=== PATIENT | female | born 1980 ===

== ENCOUNTER 2020-10-06 13:02 | Outpatient (REF) | payer OTHER, SELFPAY | END 2020-10-06 13:03 | disposition home or self-care (01) | LOC: HO.LAB 13:02 | PROVIDERS: PCP Internal Medicine; Visit Provider Internal Medicine | DX: Z20.828 Contact with and (suspected) exposure to other viral communicable diseases (principal) | CPT/HCPCS: C9803; U0003 ==

== ENCOUNTER 2021-06-30 07:57 | Outpatient (REF) | payer OTHER, SELFPAY ==
[2021-06-30 08:23] LABS: MANUAL DIFF FLAG NO
[2021-06-30 08:31] LABS: Basophils Absolute Auto 0.1 X10*3/uL (0.0-0.2); Eosinophils Absolute Auto 0.1 X10*3/uL (0.0-0.4); Eosinophils Percent Auto 2.9 % (0-4); Hematocrit 41.3 % (37-47); Hemoglobin 13.5 g/dl (12.0-16.0); Imm Gran Abs Auto 0.01 X10*3/uL (0.00-0.03); Imm Gran Pct Auto 0.2 % (0.0-0.4); Lymphocytes Absolute Auto 1.8 X10*3/uL (1.2-4.9); Lymphocytes Percent Auto 36.3 % (20-40); Mean Corpuscular HGB Conc 32.7 g/dl (31.0-35.0); Mean Corpuscular Hemoglobin 27.6 pg (27.0-33.0); Mean Corpuscular Volume 84.3 fL (80-98); Monocytes Absolute Auto 0.4 X10*3/uL (0.1-1.2); Monocytes Percent Auto 7.9 % (2-11); Neutrophils Absolute Auto 2.5 X10*3/uL (2.0-8.3); Neutrophils Percent Auto 51.7 % (45-73); Platelet Count 199 X10*3/uL (160-400); Red Cell Distribution Width 13.7 % (11.0-16.0); White Blood Count 4.8 X10*3/uL (4.8-10.8)
[2021-06-30 08:54] LABS: Alanine Aminotransferase 68 U/L (0-31); Albumin Level 4.3 g/dL (3.5-5.0); Alkaline Phosphatase 86 U/L (39-117); Anion Gap 18 (12-20); Aspartate Amino Transferase 66 U/L (5-31); Blood Urea Nitrogen 17 mg/dL (9-16); Calcium 10.1 mg/dL (8.4-10.2); Carbon Dioxide 29 mmol/L (22-29); Chloride 92 mmol/L (96-108); Cholesterol 202 mg/dL; Estimated Glomerular Filt Rate 39; HDL Cholesterol 39 mg/dL; LDL Cholesterol Calculated 98 mg/dl; Potassium 3.8 mmol/L (3.3-5.1); Sodium 135 mmol/L (135-145); Total Protein 7.2 g/dL (6.5-8.0); Triglycerides 328 mg/dL
[2021-06-30 09:04] LABS: Glucose Fasting 498 mg/dL (60-99)
[2021-06-30 09:11] LABS: Thyroid Stimulating Hormone 14.47 uIU/mL (0.32-4.0)
[2021-07-02 02:22] LABS: Thyroglobulin Antibodies <1 IU/mL (< or = 1); Thyroid Peroxidase Antibodies <1 IU/mL (<9)
[2021-07-06 13:17] LABS: Vitamin D 25-OH, D2 16 ng/mL; Vitamin D 25-OH, D3 7 ng/mL; Vitamin D 25-OH, Total 23 ng/mL (30-100)
== END 2021-06-30 07:58 | disposition home or self-care (01) ==
LOC: HO.LAB 07:57
PROVIDERS: PCP Internal Medicine; Visit Provider Internal Medicine
DX: J30.9 Allergic rhinitis, unspecified (principal); I10 Essential (primary) hypertension; E78.5 Hyperlipidemia, unspecified; E03.9 Hypothyroidism, unspecified; E55.9 Vitamin D deficiency, unspecified
CPT/HCPCS: 36415; 80053; 80061; 82306; 84443; 85025; 86376; 86800

== ENCOUNTER 2021-07-15 16:37 | Outpatient (REF) | payer OTHER, SELFPAY ==
[2021-07-15 18:12] LABS: Estimated Average Glucose 346 mg/dL; Hemoglobin A1c % 13.7 %
== END 2021-07-15 16:38 | disposition home or self-care (01) ==
LOC: HO.LAB 16:37
PROVIDERS: PCP Internal Medicine; Visit Provider Internal Medicine
DX: E11.40 Type 2 diabetes mellitus with diabetic neuropathy, unspecified (principal)
CPT/HCPCS: 36415; 83036

== ENCOUNTER 2022-03-15 07:16 | Emergency (ER) | payer OTHER, SELFPAY ==
--- NOTE | 2022-03-15 07:36 | ED.GENADULT ---
HPI - General Adult General Stated complaint: pain and burning in thigh Time Seen by Provider: 03/15/22 07:26 Source: patient Mode of arrival: ambulatory Limitations: no limitations History of Present Illness HPI narrative: Patient comes emergency room complaining of 2-3 days of burning sensation and numbness and tingling in the anterior lateral portion of the right thigh. Patient denies any injury, no rash, no fever chills, no hip pain no knee pain, no trauma. Patient states that over the weekend she has been wearing loose clothes to make her feel better. Patient states that wearing jeans aggravates the discomfort Related Data Home Medications Medication Instructions Recorded Confirmed insulin degludec 100 unit/mL (3 30 unit SUBCUT ml 11/05/21 11/05/21 mL) subcutaneous pen (Tresiba FlexTouch U-100 insulin) pen needle, diabetic 31 gauge x #50 ea 11/05/21 11/05/2101/27 (BD Ultra-Fine Mini Pen Needle) Previous Rx's Medication Instructions Recorded blood sugar diagnostic (FreeStyle #50 ea 06/30/21 Test) blood-glucose meter (FreeStyle #1 ea 06/30/21 Lite Meter) lancets 28 gauge (FreeStyle #100 ea 06/30/21 Lancets) omeprazole 20 mg capsule,delayed 20 mg PO DAILY 90 Days #90 cap 08/26/21 release escitalopram oxalate 10 mg tablet 10 mg PO DAILY #90 tab 10/09/21 metformin 500 mg tablet 500 mg PO BID 90 Days #180 tab 11/05/21 atorvastatin 20 mg tablet 20 mg PO DAILY #30 tab 11/08/21 fenofibrate 54 mg tablet 54 mg PO DAILY #30 tab 11/08/21 levothyroxine 200 mcg tablet 200 mcg PO QAM #30 tab 11/08/21 hydrochlorothiazide 25 mg tablet 25 mg PO QAM #30 tab 03/06/22 acetaminophen 500 mg capsule 500 mg PO Q6H PRN #20 cap 03/15/22 cyclobenzaprine 5 mg tablet 5 mg PO TID PRN #10 tab 03/15/22 Allergies Allergy/AdvReac Type Severity Reaction Status Date / Time No Known Allergies [NKA] Allergy Verified 11/05/21 16:10 Review of Systems Review of Systems: Constitutional : No Weight loss, No Fever, No Chills, No Night Sweats, No Fatigue, No Malaise ENT/Mouth : No Hearing loss, No Ear Pain, No Nasal Congestion, No Sinus Pain, No Hoarseness, No sore throat, No Rhinorrhea, No Swallowing Difficulty Eyes: No Eye Pain, No Swelling, No Redness, No Foreign Body, No Discharge, No Vision Changes Cardiovascular : No Chest Pain, No SOB, No Dyspnea on Exertion, No Orthopnea, No Edema, No Palpitations Respiratory : No Cough, No Sputum, No Wheezing, No Smoke Exposure, No Dyspnea Gastrointestinal : No Nausea, No Vomiting, No Diarrhea, No Constipation, No abdominal Pain, No Hematochezia, No Melena Genitourinary : no irregular bleeding, No Dysuria, No Urinary Frequency, No Hematuria, No Urinary Incontinence, No Urgency, No Flank Pain, No Urinary Flow Changes, No Hesitancy Musculoskeletal : No joint pain, complaining of burning sensation, tingling in the lower side of the thigh Skin : No Skin Lesions, No rash Neuro : No Weakness, No Numbness, No Paresthesias, No Loss of Consciousness, No Dizziness, No Headache Psych : No Anxiety/Panic, No Depression, No SI/HI/AH/VH, No Social Issues, Heme/Lymph: No Bruising, No Bleeding,No Lymphadenopathy Endocrine : No Polyuria, No Polydipsia, No Temperature Intolerance PMFSH Past Medical History Medical History LAXMI (acute kidney injury) Allergic rhinitis Blurry vision Diabetes mellitus Essential hypertension NAVNEET (generalized anxiety disorder) GERD (gastroesophageal reflux disease) Hypothyroid Mixed hyperlipidemia Moderate recurrent major depression Surgical History History of appendectomy History of cholecystectomy History of eye surgery History of hysterectomy History of removal of both ovaries History of surgery History of tonsillectomy History of tubal ligation Family History Family History Father Diabetes Hypertension Glaucoma Stroke Anxiety Mother Diabetes Hypertension Breast cancer History of mastectomy Depression Family/Other FH: mental illness Social History Social History Housing: House Alcohol intake: never Patient Tobacco Use Status: Never used Tobacco e-Cigarette/Vaping Use: Never Used Second Hand Smoke Exposure: No Advance Directives: No Advance Directives Information Provided: No service: No Current occupational status: employed Current occupational exposures/hazards: No Physical Exam ED Const Other: Appearance: Alert. Oriented X3. No acute distress. Eyes: Pupils equal, round and reactive to light. ENT: Pharynx normal. Neck: Normal inspection. Neck supple. No lymph nodes noted. No crepitus CVS: Normal heart rate and rhythm. Pulses normal. Normal S1 and S2 Respiratory: No respiratory distress. Breath sounds normal. No Wheezing. No rales Abdomen: Soft and nontender. No rigidity. No distention. Skin: Skin warm and dry. Normal skin color. Normal skin turgor. Extremities: No lower extremity edema. No Lacerations. No Rash, discomfort to mild touch/palpation to the outer upper thigh Neuro: Oriented X 3. No motor deficit. No sensory deficit. Moving all extremities. No slurred speech. CN 2 through 12 grossly intact Psych: calm, cooperative, normal affect Course Course Course Narrative: I discussed with the patient that she likely has meralgia paresthetica. Patient will follow-up with her primary care physician. Discharge Plan Discharge Clinical Impression: Meralgia paresthetica of right side Patient Disposition: Home, Self-Care Instructions: Meralgia Paresthetica (ED) Additional Instructions: Please follow-up with your primary care physician tomorrow. If you have any worsening or new symptoms, please return to the emergency room or call 911 Prescriptions: New acetaminophen 500 mg capsule 500 mg PO Q6H PRN (Reason: pain) Qty: 20 0RF cyclobenzaprine 5 mg tablet 5 mg PO TID PRN (Reason: muscle spasm) Qty: 10 0RF No Action (DME) blood-glucose meter [FreeStyle Lite Meter] Kit See Rx Instructions .Route Qty: 1 0RF Rx Instructions: As directed (DME) FreeStyle Test Strip See Rx Instructions .Route Qty: 50 11RF Rx Instructions: Use 1 test strip once a day (DME) lancets [FreeStyle Lancets] 28 gauge misc See Rx Instructions .Route Qty: 100 11RF Rx Instructions: Use 1 lancet once a day omeprazole 20 mg capsule,delayed release(DR/EC) 20 mg PO DAILY 90 Days Qty: 90 3RF escitalopram oxalate 10 mg tablet 10 mg PO DAILY Qty: 90 1RF atorvastatin 20 mg tablet 20 mg PO DAILY Qty: 30 6RF levothyroxine 200 mcg tablet 200 mcg PO QAM Qty: 30 4RF fenofibrate 54 mg tablet 54 mg PO DAILY Qty: 30 4RF hydrochlorothiazide 25 mg tablet 25 mg PO QAM Qty: 30 3RF (DME) pen needle, diabetic [BD Ultra-Fine Mini Pen Needle] 31 gauge x 3/16 needle See Rx Instructions ea subcut BEDTIME Qty: 50 0RF Rx Instructions: As directed metformin 500 mg tablet 500 mg PO BID 90 Days Qty: 180 0RF Tresiba FlexTouch U-100 100 unit/mL (3 mL) insulin pen 30 unit subcut 0RF Stand Alone Forms: Work/School Release
--- NOTE | 2022-03-15 08:49 | PC.NURSE ---
PT SEEN AND EVALUATED BY PROVIDER IN PIVOT ROOM 2 DISCHARGED BY PROVIDER
== END 2022-03-15 08:30 | disposition home or self-care (01) ==
PROVIDERS: Emergency Provider Emergency Medicine; PCP Internal Medicine
DX: G57.11 Meralgia paresthetica, right lower limb (principal); M79.651 Pain in right thigh; E11.9 Type 2 diabetes mellitus without complications; Z79.899 Other long term (current) drug therapy; Z79.4 Long term (current) use of insulin

== ENCOUNTER 2022-04-15 14:13 | Outpatient (REF) | payer OTHER, SELFPAY ==
[2022-04-15 15:00] LABS: Alanine Aminotransferase 20 U/L (0-31); Albumin Level 3.8 g/dL (3.5-5.0); Alkaline Phosphatase 58 U/L (39-117); Anion Gap 12 (12-20); Aspartate Amino Transferase 18 U/L (5-31); Bilirubin Total 0.3 mg/dL (0.0-1.0); Blood Urea Nitrogen 15 mg/dL (9-16); Calcium 9.4 mg/dL (8.4-10.2); Carbon Dioxide 31 mmol/L (22-29); Chloride 104 mmol/L (96-108); Estimated Glomerular Filt Rate > 60; Glucose Random 88 mg/dL (60-115); Potassium 3.9 mmol/L (3.3-5.1); Sodium 143 mmol/L (135-145); Total Protein 6.6 g/dL (6.5-8.0)
== END 2022-04-15 14:14 | disposition home or self-care (01) ==
LOC: HO.LAB 14:13
PROVIDERS: PCP Internal Medicine; Visit Provider Internal Medicine
DX: U07.1 COVID-19 (principal)
CPT/HCPCS: 36415; 80053

== ENCOUNTER 2022-05-11 08:16 | Outpatient (REF) | payer OTHER, SELFPAY ==
[2022-05-11 11:04] LABS: TSH reflex Free T4 < 0.01 uIU/mL (0.32-4.0)
[2022-05-11 11:39] LABS: Free T4 (Free Thyroxine) 1.71 ng/dL (0.71-1.85)
[2022-05-11 12:07] LABS: Folate 7.7 ng/mL (> or = 4.0); Vitamin B12 261 pg/mL (200-900)
[2022-05-14 13:36] LABS: Transglutaminase Ab IgG <1.0 U/mL; Transglutaminase IgA <1.0 U/mL
[2022-05-17 15:42] LABS: Vitamin D 25-OH, D2 6 ng/mL; Vitamin D 25-OH, D3 26 ng/mL; Vitamin D 25-OH, Total 32 ng/mL (30-100)
== END 2022-05-11 08:17 | disposition home or self-care (01) ==
LOC: HO.LAB 08:16
PROVIDERS: PCP Internal Medicine; Visit Provider Nurse Practitioner Family
DX: E55.9 Vitamin D deficiency, unspecified (principal); R19.7 Diarrhea, unspecified; R14.0 Abdominal distension (gaseous)
CPT/HCPCS: 36415; 82306; 82607; 82656; 82746; 84439; 84443; 86364; 99202

== ENCOUNTER 2022-05-11 11:59 | Outpatient (REF) | payer OTHER, SELFPAY ==
[2022-05-18 18:21] LABS: Pancreatic Elastase-1 >500 mcg/g
== END 2022-05-11 12:00 | disposition home or self-care (01) ==
LOC: HO.LNP 11:59
PROVIDERS: Visit Provider Nurse Practitioner Family
DX: Z13.89 Encounter for screening for other disorder (principal)
CPT/HCPCS: 82656; 99202

== ENCOUNTER 2022-05-14 08:00 | Outpatient (RCR) | payer OTHER, SELFPAY ==
[2022-04-01 08:07] VITALS: BP 136/63; PULSE 72
--- NOTE | 2022-04-01 08:54 | MHC.PT.EP ---
[facility] [place] Office [place] Office [place] Office [address] Rohini Patel [address] [phone] F: [phone] F: [phone] F: [phone] F: [phone] Physical Therapy Plan of Care Date of Evaluation: Date of Surgery: NA Diagnosis: Meralgia parasthetica, R lower limb Assessment: Yola is a 41 year old female who is referred to PT for meralgia parasthetica, R lower limb . She reports of having sudden onset of groin pain about 3.5 weeks back. She went to the ED for the same where she was given muscle relaxants and pain meds. On PT examination she presents with TTP over R hip flexors and adductors, R proximal quad, 5/10 pain with sitting, bending and standing, decreased hip ROM, decreased hip muscle strength, and altered posture. Due to these impairments she has pain with ADLS and work activities. She would benefit from skilled PT to address the aforementioned impairments and improve tolerance to functional activities. Frequency and Duration: The patient will be seen 2/ week for 5 weeks Short Term Goals: 1. Pt will have 50% decrease in pain which will help her sleep through the night in 2 weeks. 2. Pt will be able to tolerate sitting for 30 minutes with a pain no more than 2/10 in 3 weeks. Weight And Balance Control Agent Goals: 1. Pt will be able to move his through full plane of motion without pain which help her roll in the bed without pain in 4 weeks. 2. Pt will demonstrate an increase in muscle strength by 1 grade and return to PLOF in 5 weeks. Treatment Plan: Modalities to reduce pain, spasms and effusion. Manual therapy to restore motion and function. Therapeutic exercise to improve strength and flexibility. Neuromuscular re-education for posture and balance. Therapeutic activities to return to functional activities of daily living. Electronically signed by: Svetlana Gray PT DPT Please sign and return to therapist. Thank you for your referral.
--- NOTE | 2022-05-14 09:15 | MHC.PT.DC ---
[facility] [place] [facility] [place] Office [place] Office [address] Rohini Patel [address] [phone] F: [phone] F: [phone] F: [phone] F: [phone] Physical Therapy Discharge Report Diagnosis: Meralgia parasthetica, R lower limb Date of Surgery: NA Date of Evaluation: 04/01/22 Date of Discharge: 05/14/22 Treatments to Date: 8 Cancellations to Date: 0 No Shows to Date: 0 Discharge Status: Achieved Goals Improved Function Independent with HEP Discharge Summary: Yola has completed 8 PT visits. She arrived stating she feels good. She only reports of having occasional soreness if she does more than her usual activity. She has improved significantly and achieved all goals set for her. She is therefore being d/c from PT. Electronically signed by: Svetlana Gray PT DPT Please sign and return to therapist. Thank you for your referral.
== END 2022-05-14 09:15 | disposition home or self-care (01) ==
LOC: HO.PT 08:00
PROVIDERS: PCP Internal Medicine; Visit Provider Nurse Practitioner Family
DX: G57.11 Meralgia paresthetica, right lower limb (principal)
CPT/HCPCS: 97110; 97161; 97530

== ENCOUNTER 2022-05-21 07:38 | Outpatient (REF) | payer OTHER, SELFPAY ==
--- NOTE | ~2022-05-21 | MM_ITS ---
EXAMINATION: MM SCREENING DIGITAL BREAST TOMOSYNTHESIS, BILATERAL CLINICAL INFORMATION: Screening. Asymptomatic. Family history breast cancer, mother. The lifetime risk of breast cancer based on the Tyrer-Cuzick Model is 26%. COMPARISON: Mammography: 07/15/2020, 04/03/2012 TECHNIQUE: Digital breast tomosynthesis is performed in both the craniocaudal and mediolateral oblique views along with computer-aided detection (CAD). Synthesized 2D images are generated from the tomosynthesis. Additional left CC view is provided. FINDINGS: There are scattered areas of fibroglandular density (ACR BI-RADS breast composition Category b). There are no significant masses, abnormal calcifications, or other abnormalities. Parenchymal pattern is similar to prior studies. The axilla and skin contours are unremarkable. MM/MM tomosynthesis screening BI IMPRESSION: No mammographic evidence of malignancy. ASSESSMENT: BI-RADS 1: Negative RECOMMENDATION: Routine annual mammography screening. This patient's information was entered into a reminder system with a target due date for their next mammogram.
== END 2022-05-21 07:39 | disposition home or self-care (01) ==
LOC: HO.MAMMO 07:38
PROVIDERS: PCP Internal Medicine; Visit Provider Internal Medicine
DX: Z12.31 Encounter for screening mammogram for malignant neoplasm of breast (principal)
CPT/HCPCS: 77063; 77067

== ENCOUNTER → 2022-06-22 08:43 | Outpatient (BNVA) | payer OTHER, SELFPAY | PROVIDERS: PCP Internal Medicine; Visit Provider Nurse Practitioner Family | DX: K21.9 Gastro-esophageal reflux disease without esophagitis (principal); K58.2 Mixed irritable bowel syndrome; K64.9 Unspecified hemorrhoids | CPT/HCPCS: 99212 ==

== ENCOUNTER → 2022-07-15 15:49 | Outpatient (BNVA) | payer OTHER, SELFPAY | PROVIDERS: PCP Internal Medicine; Visit Provider Surgery | DX: K64.8 Other hemorrhoids (principal); K64.4 Residual hemorrhoidal skin tags | CPT/HCPCS: 46600; 99202 ==

== ENCOUNTER 2022-08-24 05:57 | Day surgery (SDC) | payer OTHER, SELFPAY ==
[2022-08-11 11:56] VITALS: BMI 32.1
--- NOTE | 2022-08-12 | ECG_ITS ---
Test Reason : preop Blood Pressure : / mmHG Vent. Rate : 081 BPM Atrial Rate : 081 BPM P-R Int : 138 ms QRS Dur : 090 ms QT Int : 390 ms P-R-T Axes : 064 009 026 degrees QTc Int : 453 ms Normal sinus rhythm Normal ECG No previous ECGs available Referred By: Tamera Murray Electronically Signed By:RICKEY MENDEZ
[2022-08-12 13:07] VITALS: BP 117/70; RESP 20; O2SAT 97
--- NOTE | 2022-08-12 13:11 | P.CONAN_ITS ---
Documented by User: Tamera Murray NP 08/13/22 14:04 HPI - Anesthesia Eval Consult details Narrative: 42yo F for Hemorrhoidectomy, Exam Under Anesthesia PMFSH Active Problems Active Problems: All Active Problems (Updated 08/11/22 @ 11:59 by Jaky Villalta RN) Right thigh pain (Acute) Meralgia paresthetica of right side (Acute) Hemorrhoids (Acute) Physical exam (Acute) Encounter for removal of tunneled central venous catheter (CVC) with port (Acute) Class 1 obesity with body mass index (BMI) of 32.0 to 32.9 in adult (Acute) Hemorrhoids with complication (Acute) COVID-19 (Acute) LAXMI (acute kidney injury) (Acute) Diabetes mellitus (Acute) NAVNEET (generalized anxiety disorder) (Acute) Moderate recurrent major depression (Acute) Blurry vision (Acute) Essential hypertension (Acute) Allergic rhinitis (Acute) Hypothyroid (Acute) Mixed hyperlipidemia (Acute) GERD (gastroesophageal reflux disease) (Acute) Past Medical History Medical History (Updated 08/11/22 @ 11:59 by Jaky Villalta RN) LAXMI (acute kidney injury) Allergic rhinitis Blurry vision COVID-19 Diabetes mellitus Essential hypertension NAVNEET (generalized anxiety disorder) GERD (gastroesophageal reflux disease) Hemorrhoids with complication Hypothyroid Mixed hyperlipidemia Moderate recurrent major depression Port-A-Cath in place Sleep apnea Family History Family History Father Diabetes Hypertension Glaucoma Stroke Anxiety Mother Diabetes Hypertension Breast cancer History of mastectomy Depression Family/Other FH: mental illness Family history of problems with anesthesia: No Surgical History Surgical History (Updated 08/11/22 @ 11:54 by Jaky Villalta RN) History of appendectomy History of cholecystectomy History of esophagogastroduodenoscopy (EGD) History of eye surgery History of hysterectomy History of removal of both ovaries History of surgery History of tonsillectomy History of tubal ligation Hx of colonoscopy History of Problems with Anesthesia: No Social History Social History Household Members Other:: [id number] w/special needs Housing: House Are you a primary senior resident care director to a significant other at home: Yes (mother coming to assist patient post-op @ home) Do you presently have visiting nurse or other home services: No Alcohol intake: never Patient Tobacco Use Status: Never used Tobacco e-Cigarette/Vaping Use: Never Used Second Hand Smoke Exposure: No Use of substances other than those prescribed or required for medical reasons: No Have you been hit, kicked, punched, or otherwise hurt by someone within the past year? If so, by whom?: No Are you DNR?: No Advance Directives: No Advance Directives Information Provided: Yes (brochure given) Advance Directives on File: No Recently lost weight without trying: No Eating poorly because of decreased appetite: No Nutrition Risks: No Nutritional Risk Patient : No FDLMP: N/A : No Poor oral hygiene: No (broken molars) service: No Current occupational status: employed Current occupational exposures/hazards: No Cognitive needs: No Hearing needs: No Vision needs: Yes Narrative Narrative: No recent illness No CP/SOB with >4 mets Meds Allergies Allergy/AdvReac Type Severity Reaction Status Date / Time Seasonal Allergies Allergy Mild Unknown Verified 07/15/22 15:57 Home Medications Medication Instructions Recorded Confirmed Last Taken Type insulin degludec 100 unit/mL (3 30 unit subcut BEDTIME 11/05/21 08/11/22 Unknown History mL) subcutaneous pen (Tresiba FlexTouch U-100 insulin) pen needle, diabetic 31 gauge x #50 ea 11/05/21 07/15/22 Unknown History 3/16 (BD Ultra-Fine Mini Pen Needle) cholecalciferol (vitamin D3) 50 50 mcg PO DAILY 03/23/22 08/11/22 Unknown History mcg (2,000 unit) capsule (Vitamin D3) pen needle, diabetic 32 gauge x #50 ea 05/11/22 07/15/22 Unknown History (BD Rekha 2nd Gen Pen Needle) Exam Exam Date and Time: August 12, 2022 1311 Height,Weight and Vital Signs: Height 5 ft 7 in Weight 93.1 kg Last Vital Signs Resp 20 08/12/22 13:07 BP 117/70 08/12/22 13:07 Pulse Ox 97 08/12/22 13:07 O2 Del Method 08/12/22 13:07 Pertinent Lab Results Pertinent Lab Results: Lab Results 08/12/22 08/12/22 Range/Units 13:32 13:32 WBC 5.9 (4.8-10.8) X10*3/uL RBC 4.72 (4.20-5.50) X10*6/uL Hgb 12.6 (12.0-16.0) g/dl Hct 39.6 (37.0-47.0) % MCV 83.9 (80.0-98.0) fL MCH 26.7 L (27.0-33.0) pg MCHC 31.8 (31.0-35.0) g/dl RDW 13.9 (11.0-16.0) % Plt Count 226 (160-400) X10*3/uL MPV 11.5 (9.4-12.3) fL Absolute Nucleated RBC 0.000 (0.0-0.012) X10*3/uL Nucleated RBC % (auto) 0.0 (0.0-0.2) /100WBC Sodium 144 (135-145) mmol/L Potassium 3.7 (3.3-5.1) mmol/L Chloride 107 (96-108) mmol/L Carbon Dioxide 26 (22-29) mmol/L Anion Gap 15 (12-20) BUN 20 H (9-16) mg/dL Creatinine 0.76 (0.5-1.4) mg/dL Estim Creat Clear Calc 111.8 Estimated GFR > 60 Random Glucose 114 (60-115) mg/dL Calcium 8.7 D (8.4-10.2) mg/dL TSH < 0.01 L (0.32-4.0) uIU/mL Free T4 1.78 (0.71-1.85) ng/dL Narrative Narrative: EKG 07/2022 Vent. Rate : 081 BPM ? ? Atrial Rate : 081 BPM ?? P-R Int : 138 ms? QRS Dur : 090 ms ? ? QT Int : 390 ms ? ? ? P-R-T Axes : 064 009 026 degrees ?? QTc Int : 453 ms ? Normal sinus rhythm Normal ECG No previous ECGs available Airway Mallampati Class: II TM Dist: >3cm Neck ROM: Full Loose/Missing/Broken Teeth: Yes (#28 broken) Heart: RRR Lungs: CTAB Assessment and Plan Assessment Anesthesia Assessment: Anesthesia Plan Discussed and PAT Visit Final Anesthetic Review Family History of Problems with Anesthesia: No History of Problems with Anesthesia: No Documented by User: Tito Thorne MD 08/24/22 07:26 PMFSH Past Medical History Medical History (Updated 08/11/22 @ 11:59 by Jaky Villalta RN) LAXMI (acute kidney injury) Allergic rhinitis Blurry vision COVID-19 Diabetes mellitus Essential hypertension NAVNEET (generalized anxiety disorder) GERD (gastroesophageal reflux disease) Hemorrhoids with complication Hypothyroid Mixed hyperlipidemia Moderate recurrent major depression Port-A-Cath in place Sleep apnea Patient : No Family History Family History Father Diabetes Hypertension Glaucoma Stroke Anxiety Mother Diabetes Hypertension Breast cancer History of mastectomy Depression Family/Other FH: mental illness Family history of problems with anesthesia: No Surgical History Surgical History (Updated 08/11/22 @ 11:54 by Jaky Villalta RN) History of appendectomy History of cholecystectomy History of esophagogastroduodenoscopy (EGD) History of eye surgery History of hysterectomy History of removal of both ovaries History of surgery History of tonsillectomy History of tubal ligation Hx of colonoscopy History of Problems with Anesthesia: No Social History Social History Household Members Other:: [id number] w/special needs Housing: House Are you a primary senior resident care director to a significant other at home: Yes (mother coming to assist patient post-op @ home) Do you presently have visiting nurse or other home services: No Alcohol intake: never Patient Tobacco Use Status: Never used Tobacco e-Cigarette/Vaping Use: Never Used Second Hand Smoke Exposure: No Use of substances other than those prescribed or required for medical reasons: No Have you been hit, kicked, punched, or otherwise hurt by someone within the past year? If so, by whom?: No Are you DNR?: No Advance Directives: No Advance Directives Information Provided: Yes (brochure given) Advance Directives on File: No Recently lost weight without trying: No Eating poorly because of decreased appetite: No Nutrition Risks: No Nutritional Risk Patient : No FDLMP: N/A : No Poor oral hygiene: No (broken molars) service: No Current occupational status: employed Current occupational exposures/hazards: No Cognitive needs: No Hearing needs: No Vision needs: Yes Meds Allergies Allergy/AdvReac Type Severity Reaction Status Date / Time Seasonal Allergies Allergy Mild Unknown Verified 07/15/22 15:57 Home Medications Medication Instructions Recorded Confirmed Last Taken Type insulin degludec 100 unit/mL (3 30 unit subcut BEDTIME 11/05/21 08/11/22 Unknown History mL) subcutaneous pen (Tresiba FlexTouch U-100 insulin) pen needle, diabetic 31 gauge x #50 ea 11/05/21 07/15/22 Unknown History 3 (BD Ultra-Fine Mini Pen Needle) cholecalciferol (vitamin D3) 50 50 mcg PO DAILY 03/23/22 08/11/22 Unknown History mcg (2,000 unit) capsule (Vitamin D3) pen needle, diabetic 32 gauge x #50 ea 05/11/22 07/15/22 Unknown History (BD Rekha 2nd Gen Pen Needle) Exam Airway Mallampati Class: II TM Dist: >3cm Neck ROM: Full Assessment and Plan Final Anesthetic Review Family History of Problems with Anesthesia: No History of Problems with Anesthesia: No ASA Class: II Final Preanesthetic Review: No Changes in Pt Med Stat, Meds/Allgs Chart Reviewed, Consent Obtained/Reviewed and Anes Risks/Benef Reviewed Patient Risk: Intermediate Procedure Risk: Intermediate Anesthetic Plan Anesthetic Plan: GA and Agree w/ Assess. and Plan Disposition: Standard PACU
[2022-08-12 14:09] LABS: Hematocrit 39.6 % (37.0-47.0); Hemoglobin 12.6 g/dl (12.0-16.0); Mean Corpuscular HGB Conc 31.8 g/dl (31.0-35.0); Mean Corpuscular Hemoglobin 26.7 pg (27.0-33.0); Mean Corpuscular Volume 83.9 fL (80.0-98.0); Mean Platelet Volume 11.5 fL (9.4-12.3); Platelet Count 226 X10*3/uL (160-400); Red Blood Count 4.72 X10*6/uL (4.20-5.50); Red Cell Distribution Width 13.9 % (11.0-16.0); White Blood Count 5.9 X10*3/uL (4.8-10.8)
[2022-08-12 14:26] LABS: Anion Gap 15 (12-20); Blood Urea Nitrogen 20 mg/dL (9-16); Calcium 8.7 mg/dL (8.4-10.2); Carbon Dioxide 26 mmol/L (22-29); Chloride 107 mmol/L (96-108); Creatinine Clr Calc Pharmacy 111.8; Estimated Glomerular Filt Rate > 60; Glucose Random 114 mg/dL (60-115); Potassium 3.7 mmol/L (3.3-5.1); Sodium 144 mmol/L (135-145)
[2022-08-12 14:51] LABS: TSH reflex Free T4 < 0.01 uIU/mL (0.32-4.0)
[2022-08-12 16:25] LABS: Free T4 (Free Thyroxine) 1.78 ng/dL (0.71-1.85)
[2022-08-24] VITALS (7 sets, daily range): BP systolic 127–159; BP diastolic 72–88; PULSE 66–79; RESP 16; TEMP 36.1–36.8; O2SAT 96–100
[2022-08-24 06:34] LABS: Glucose, Whole Blood 94 mg/dL (60-115)
[2022-08-24] MEDS: Lactated Ringers 1,000 ML 100 ML IVCONT (06:38)
--- NOTE | 2022-08-24 07:25 | MHC.SHP ---
Pre-Procedural Eval Section A Date of Service: 08/24/22 Section B Chief Complaint: hemorrhoids Details of Present Illness: Has had history of hemorrhoids with pain and bleeding Relevant Family History (Specify if Yes): No Relevant Social History: None Present Medications: see Short Stay Collaborative assessment Medical History: Significant History ( diabetes, anxiety, hypertension, GERD, hypothyroid condition) History of Previous Operations: No relevant previous surgery Allergies: Allergies Allergy/AdvReac Type Severity Reaction Status Date / Time Seasonal Allergies Allergy Mild Unknown Verified 07/15/22 15:57 Review of Systems Sugical H&P ROS: Negative: Constitution, Cardiovascular, Respiratory, Neurological, Psychiatric, Hem-Onc, Allergic/Immunologic, Gastrointestinal, Genitourinary, Musculoskeletal, Integumentary, Endocrine and Eyes/Ears/Nose/Throat Exam Surgical H&P Exam: Normal: HEENT, Normal: Heart, Normal: Lungs, Normal: Extremities, Normal: Abdomen, Normal: Skin and Normal: Neurological Exam Comment: external hemorrhoids Plan Diagnosis/Plan: Unchanged I have reviewed the history and physical and performed a pertinent physical examination on my patient. No changes have occurred unless specified.
--- NOTE | 2022-08-24 08:09 | W.PM.OPN ---
Operative Note Operative Note Date of Service: 08/24/22 Narrative: Preop diagnosis: Internal and external hemorrhoids, with pain and bleeding Postop diagnosis: The same Procedure: Exam under anesthesia hemorrhoidectomy x2 columns Surgeon: Blake Farias MD The patient is a 42-year-old female chronic problems with pain, inflammation and bleeding with her hemorrhoids. She was noted to have a large external hemorrhoidal column on the left. She understood technique hemorrhoidectomy. She was aware of the risks, benefits, and alternatives. She was brought to the operating room. She was placed in prone danial-knife position under general anesthesia via laryngeal mask airway. The buttocks were retracted with wide tape laterally. The perianal area was prepped and draped in the usual sterile fashion. A surgical time-out was done. The patient received Cefotan 2 g IV preoperatively Examination of the anal orifice revealed a large external hemorrhoid on the left. Infiltrated the perianal area with lidocaine 1%. I inserted the Siomara Sage retractor and examined the anal canal circumferentially. There was note of a mixed internal external hemorrhoidal column on the right side as well that was moderate-sized . There were no other lesions seen in the anal canal. I applied a Reid grasper at the external hemorrhoid column on the left. I made a sqyapj-ba-uxygl stitch past this column using chromic 3-0. I made an incision around this hemorrhoidal column using a blade 15. I excised this hemorrhoidal column along this incision above the plane of sphincters using scissors. I closed this incision with a running chromic 3-0 stitch. Additional figure-eight hemostatic sutures were also placed . I then proceeded to apply a Reid grasper at the hemorrhoidal column on the right. I made a ekputh-ee-eqfwv stitch at its pedicle using chromic 3-0. Incision around this hemorrhoidal column all the way to the perianal skin using blade 15. I excised this hemorrhoidal column above the plane of the sphincters using scissors. I closed this incision with a running chromic 3-0 stitch with additional hemostatic sutures, zweikp-ty-jpjth fashion being placed. I observed for hemostasis. Once hemostasis was Confirmed, infiltrated the perianal area with Marcaine 0.5% for postop analgesia. The procedure was then completed The patient tolerated procedure well. There were no immediate complications. Estimated blood loss about 25 cc . The patient was extubated without difficulty and transferred to the recovery room with stable vital signs.
[2022-08-24 08:24] LABS: Glucose, Whole Blood 90 mg/dL (60-115)
[2022-08-24] MEDS: Acetaminophen 325 MG TABLET 650 MG PO (08:39)
[2022-08-24] MEDS: oxyCODONE HCl Immed Release 5 MG TABLET PO (08:40)
== END 2022-08-24 09:57 | disposition home or self-care (01) ==
PROVIDERS: Nurse Practitioner; PCP Internal Medicine; Visit Provider Surgery
PROC: (CPT 46260; principal; 2022-08-24 07:30)
PROC: (CPT 46260; 2022-08-24 07:30)
DX: K64.8 Other hemorrhoids (principal); K64.4 Residual hemorrhoidal skin tags; J30.2 Other seasonal allergic rhinitis; I10 Essential (primary) hypertension; E11.9 Type 2 diabetes mellitus without complications; Z79.4 Long term (current) use of insulin; Z79.899 Other long term (current) drug therapy; H57.9 Unspecified disorder of eye and adnexa; H53.8 Other visual disturbances; Z95.828 Presence of other vascular implants and grafts; F33.1 Major depressive disorder, recurrent, moderate; F41.1 Generalized anxiety disorder; K21.9 Gastro-esophageal reflux disease without esophagitis; E03.9 Hypothyroidism, unspecified; E78.5 Hyperlipidemia, unspecified; Z86.16 Personal history of COVID-19
CPT/HCPCS: 46260; 36415; 80048; 82947; 84439; 84443; 85027; 88304; 93005; J1642; J1885; J2405; J2795; J3010

== ENCOUNTER 2022-11-20 12:34 | Emergency (ER) | payer OTHER, SELFPAY ==
--- NOTE | ~2022-11-20 | XR_ITS ---
EXAMINATION: XR CHEST CLINICAL INFORMATION: Chest pain COMPARISON: Chest x-ray May 12, 2020 TECHNIQUE: 2 views of the chest were obtained. FINDINGS: Cardiac silhouette is normal in size. Right-sided port is present in expected position with tip terminating at the cavoatrial junction. Lungs are well aerated. There is no lobar consolidation. No pleural effusion or pneumothorax. Surgical clips in the upper abdomen consistent with prior cholecystectomy. No acute osseous abnormality. XR/XR chest 2V IMPRESSION: No acute pulmonary pathology.
[2022-11-20 12:37] VITALS: BP 131/84; PULSE 88; RESP 18; TEMP 36.3; O2SAT 97; BMI 34.0
--- NOTE | 2022-11-20 12:38 | ED_ITS ---
HPI - General Adult General Chief complaint: Chest Pain <ROMULO Mojica - Last Filed: 11/20/22 12:39> Stated complaint: CP, lightheaded <ROMULO Mojica - Last Filed: 11/20/22 12:39> Time Seen by Provider: 11/20/22 13:14 <ROMULO Mojica - Last Filed: 11/20/22 12:39> Source: patient <Flower Le NP - Last Filed: 11/20/22 16:30> Mode of arrival: ambulatory <Flower Le NP - Last Filed: 11/20/22 16:30> Limitations: no limitations <Flower Le NP - Last Filed: 11/20/22 16:30> History of Present Illness HPI narrative: 42-year-old female past medical history of LAXMI, DM, G AD, HTN, hypothyroid, GERD presents to the emergency department complaining of substernal chest pain and feeling 'out of it/dizzy' since 10:00 p.m. on 11/20/2022. She describes the pain as a stabbing sensation 6/10 nonradiating in nature. She sta camila pain is worsened when lying flat in taking a deep breath. She denies any known illnesses or sick contacts. She denies any shortness of breath, headache, vision changes, lightheadedness. <Flower Le NP - Last Filed: 11/20/22 16:30> Onset (ago): hour(s) (14+) <Flower Le NP - Last Filed: 11/20/22 16:30> Location: chest <Flower Le NP - Last Filed: 11/20/22 16:30> Radiation: non-radiation <Flower Le NP - Last Filed: 11/20/22 16:30> Severity: moderate <Flower Le NP - Last Filed: 11/20/22 16:30> Severity scale (1-10): 6 <Flower Le NP - Last Filed: 11/20/22 16:30> Quality: stabbing <Flower Le NP - Last Filed: 11/20/22 16:30> Related Data Home medications: Home Medications Medication Instructions Recorded Confirmed insulin degludec 100 unit/mL (3 30 unit subcut BEDTIME 11/05/21 08/11/22 mL) subcutaneous pen (Tresiba FlexTouch U-100 insulin) pen needle, diabetic 31 gauge x #50 ea 11/05/21 07/15/22 3/16 (BD Ultra-Fine Mini Pen Needle) cholecalciferol (vitamin D3) 50 50 mcg PO DAILY 03/23/22 08/11/22 mcg (2,000 unit) capsule (Vitamin D3) pen needle, diabetic 32 gauge x #50 ea 05/11/22 07/15/22 (BD Rekha 2nd Gen Pen Needle) Previous Rx's Medication Instructions Recorded blood sugar diagnostic (FreeStyle #50 ea 06/30/21 Test strips) blood-glucose meter (FreeStyle #1 ea 06/30/21 Lite Meter kit) lancets 28 gauge (FreeStyle #100 ea 06/30/21 Lancets) acetaminophen 500 mg capsule 500 mg PO Q6H PRN pain #20 caps 03/15/22 cyclobenzaprine 5 mg tablet 5 mg PO TID PRN muscle spasm #10 03/15/22 tabs docusate sodium 100 mg capsule 100 mg PO BEDTIME #90 caps 05/11/22 hydrocortisone 2.5 % topical cream 1 appl CO BID-QID PRN hemorrhoids 05/11/22 with perineal applicator #30 grams (Proctosol HC) methylcellulose (laxative) 500 mg 500 mg PO DAILY #90 tabs 05/11/22 tablet (Citrucel) atorvastatin 20 mg tablet 20 mg PO DAILY #30 tabs 06/16/22 metformin 500 mg tablet 500 mg PO BID 90 days #180 tabs 08/13/22 ibuprofen 600 mg tablet 600 mg PO Q6H PRN pain #30 tabs 08/24/22 oxycodone-acetaminophen 5 mg-325 1 tab PO Q4-6H PRN pain #30 tabs 08/24/22 mg tablet (Percocet) fenofibrate 54 mg tablet 54 mg PO DAILY #90 tabs 10/14/22 diclofenac sodium 1 % topical gel 2 g topical QID PRN pain #100 grams 10/25/22 (Arthritis Pain (diclofenac)) escitalopram oxalate 10 mg tablet 10 mg PO DAILY #90 tabs 10/25/22 hydrochlorothiazide 25 mg tablet 25 mg PO QAM #30 tabs 10/25/22 levothyroxine 175 mcg tablet 175 mcg PO DAILY 90 days #90 tabs 10/25/22 omeprazole 20 mg capsule,delayed 20 mg PO DAILY 90 days #90 caps 10/25/22 release <ROMULO Mojica - Last Filed: 11/20/22 12:39> Allergies/adverse reactions: Allergies Allergy/AdvReac Type Severity Reaction Status Date / Time Seasonal Allergies Allergy Mild Unknown Verified 09/06/22 09:07 <ROMULO Mojica - Last Filed: 11/20/22 12:39> Review of Systems Review of Systems: Yes all other systems are reviewed and are negative <Flower Le NP - Last Filed: 11/20/22 16:30> PMFSH Past Medical History Attestation statement: The following information was validated with the patient. <Flower Le NP - Last Filed: 11/20/22 16:30> Source: old records reviewed <Flower Le NP - Last Filed: 11/20/22 16:30> Medical History: Medical History LAXMI (acute kidney injury) Allergic rhinitis Blurry vision COVID-19 Diabetes mellitus Essential hypertension NAVNEET (generalized anxiety disorder) GERD (gastroesophageal reflux disease) Hemorrhoids with complication Hypothyroid Mixed hyperlipidemia Moderate recurrent major depression Port-A-Cath in place Sleep apnea <ROMULO Mojica - Last Filed: 11/20/22 12:39> Surgical History: Surgical History History of appendectomy History of cholecystectomy History of esophagogastroduodenoscopy (EGD) History of eye surgery History of hemorrhoidectomy (~08/24/22) History of hysterectomy History of removal of both ovaries History of surgery History of tonsillectomy History of tubal ligation Hx of colonoscopy <ROMULO Mojica - Last Filed: 11/20/22 12:39> Family History Family History: Family History Father Diabetes Hypertension Glaucoma Stroke Anxiety Mother Diabetes Hypertension Breast cancer History of mastectomy Depression Family/Other FH: mental illness <ROMULO Mojica - Last Filed: 11/20/22 12:39> Social History Social History: Social History Household Members Other:: [id number] w/special needs Housing: House Are you a primary home care coordinator to a significant other at home: Yes (mother coming to assist patient post-op @ home) Do you presently have visiting nurse or other home services: No Alcohol intake: never Patient Tobacco Use Status: Never used Tobacco e-Cigarette/Vaping Use: Never Used Second Hand Smoke Exposure: No Advance Directives: No Advance Directives Information Provided: No service: No Current occupational status: employed Current occupational exposures/hazards: No Cognitive needs: No Hearing needs: No Vision needs: Yes <ROMULO Mojica - Last Filed: 11/20/22 12:39> Physical Exam ED Vital Signs: Vital Signs - 24 hr 11/20/22 12:37 11/20/22 15:19 Temperature 97.3 F 98.3 F Pulse Rate 88 65 Respiratory Rate 18 16 Blood Pressure 131/84 150/88 H Pulse Oximetry 97 100 Oxygen Delivery Method Room Air Room Air BMI result Body Mass Index 34.0 <ROMULO Mojica - Last Filed: 11/20/22 12:39> Vital Signs - 24 hr 11/20/22 12:37 11/20/22 15:19 Temperature 97.3 F 98.3 F Pulse Rate 88 65 Respiratory Rate 18 16 Blood Pressure 131/84 150/88 H Pulse Oximetry 97 100 Oxygen Delivery Method Room Air Room Air BMI result Body Mass Index 34.0 <Flower Le NP - Last Filed: 11/20/22 16:30> Nursing notes and vital signs reviewed. GENERAL APPEARANCE: A&0 x 4, generally well appearing, no acute distress HENMT: Normal to inspection, atraumatic, face symmetrical. Normal external ears, nose, and oropharynx clear. EYE: PERRLA, EOM intact, structures appear normal NECK: Supple without lymphadenopathy. No stiffness or restricted ROM. CHEST: Normal to inspection HEART: Normal rate and regular rhythm, normal S1/S2, no M/R/G LUNGS: LS CTA, moving air well. Able to speak in complete sentences. No c rackles, wheezes, or rhonchi auscultated ABDOMEN: Soft, nontender, nondistended. Normal bowel sounds noted BACK: No CVAT, no obvious deformity EXTREMITIES: Moving all extremities without difficulty. No cyanosis, clubbing, or edema. Normal capillary refill. NEUROLOGICAL: Alert and oriented, moving all 4 extremities with equal strength. CN not formally tested but appearing grossly intact. Observed to ambulate with normal gait. Cognition normal SKIN: Warm and dry without any lesions, rash, or visible sores PSYCH: Cooperative, normal affect, normal thought process <Flower Le NP - Last Filed: 11/20/22 16:30> Course Course Course Narrative: RME performed by Sindhu Chin PA-C. Patient is a 42 year old female presenting to the emergency department with chest pain. Patient also complaining of numbness in her fingers and lightheadedness. Labs and imaging ordered. Patient placed back in waiting room pending results and room availability. <ROMULO Mojica - Last Filed: 11/20/22 12:39> Medications Administered Discontinued Medications Generic Name Dose Route Start Last Admin Trade Name Freq PRN Reason Stop Dose Admin Al Hydroxide/Mg Hydroxide 30 ml 11/20/22 15:08 11/20/22 15:22 Magnesium Hydrox/Alum Hydrox 30 Ml Oral.Susp PO 11/20/22 15:09 Not Given ONCE ONE Famotidine 20 mg 11/20/22 15:08 11/20/22 15:21 Famotidine 20 Mg Tablet PO 11/20/22 15:09 20 mg ONCE ONE Administration Lidocaine HCl 15 ml 11/20/22 15:08 11/20/22 15:22 Lidocaine Hcl Viscous 2 % 15 Ml Solution MUCOUS MEM 11/20/22 15:09 Not Given ONCE ONE <ROMULO Mojica - Last Filed: 11/20/22 12:39> Medications Administered Discontinued Medications Generic Name Dose Route Start Last Admin Trade Name Freq PRN Reason Stop Dose Admin Al Hydroxide/Mg Hydroxide 30 ml 11/20/22 15:08 11/20/22 15:22 Magnesium Hydrox/Alum Hydrox 30 Ml Oral.Susp PO 11/20/22 15:09 Not Given ONCE ONE Famotidine 20 mg 11/20/22 15:08 11/20/22 15:21 Famotidine 20 Mg Tablet PO 11/20/22 15:09 20 mg ONCE ONE Administration Lidocaine HCl 15 ml 11/20/22 15:08 11/20/22 15:22 Lidocaine Hcl Viscous 2 % 15 Ml Solution MUCOUS MEM 11/20/22 15:09 Not Given ONCE ONE <Flower Le NP - Last Filed: 11/20/22 16:30> Medical Decision Making Medical Decision Making MDM Narrative: 42-year-old female past medical history of LAXMI, DM, G AD, HTN, hypothyroid, GERD presents to the emergency department complaining of substernal chest pain and feeling 'out of it/dizzy' since 10:00 p.m. on 11/20/2022. She describes the pain as a stabbing sensation 6/10 nonradiating in nature. She states pain is worsened when lying flat in taking a deep breath. Serology negative for influenza, RSV, COVID-19. Blood work unremarkable. Troponin negative. Chest x-ray negative for acute cardiopulmonary infection or disease. EKG is normal sinus rhythm with no significant change from last EKG done 08/12/2022. Wells scores for DVT and PE are low risk and per PERC rule, PE can be ruled out. Pepcid given with slight reduction in discomfort from 6/10 to 4/10 HPI, PE, diagnostic exam is consistent with epigastric abdominal pain not of cardiac origin. Patient is safe for discharge at this time with recommendation to manage symptoms with [id number] Tylenol and/or Motrin with dosing as per packaging. HPI, PE, diagnostics, and plan discussed with patient and family with no unanswered questions at this time. Patient educated to return to the emergency department with new, worsening, or concerning emergent symptoms. Recommended to follow-up with her primary care provider for further treatment and management. *Refer to Course for additional information on consultations, diagnostic interpretation, consultations, emergency department stay, conversations with patient and family, shared decision making with patient, and more information on medical decision making* <Flower Le NP - Last Filed: 11/20/22 16:30> Lab Data Result Diagrams: 11/20/22 14:02 11/20/22 14:02 <ROMULO Mojica - Last Filed: 11/20/22 12:39> Labs: Lab Results 11/20/22 11/20/22 11/20/22 Range/Units 14:02 14:02 14:02 WBC 6.2 (4.8-10.8) X10*3/uL RBC 4.90 (4.20-5.50) X10*6/uL Hgb 13.1 (12.0-16.0) g/dl Hct 41.4 (37.0-47.0) % MCV 84.5 (80.0-98.0) fL MCH 26.7 L (27.0-33.0) pg MCHC 31.6 (31.0-35.0) g/dl RDW 14.5 (11.0-16.0) % Plt Count 206 (160-400) X10*3/uL MPV 11.2 (9.4-12.3) fL Immature Gran % (Auto) 0.2 (0.0-0.4) % Neut % (Auto) 68.6 (45-73) % Lymph % (Auto) 21.5 (20-40) % [place] % (Auto) 6.8 (2-11) % Eos % (Auto) 2.3 (0-4) % Baso % (Auto) 0.6 (0-2) % Lymph # (Auto) 1.3 (1.2-4.9) X10*3/uL [place] # (Auto) 0.4 (0.1-1.2) X10*3/uL Eos # (Auto) 0.1 (0.0-0.4) X10*3/uL Baso # (Auto) 0.0 (0.0-0.2) X10*3/uL Abs Immat Gran (auto) 0.01 (0.00-0.03) X10*3/uL Absolute Neuts (auto) 4.3 (2.0-8.3) x10*3/uL Absolute Nucleated RBC 0.000 (0.0-0.012) X10*3/uL Nucleated RBC % (auto) 0.0 (0.0-0.2) /100WBC Sodium 141 (135-145) mmol/L Potassium 4.6 D (3.3-5.1) mmol/L Chloride 110 H (96-108) mmol/L Carbon Dioxide 25 (22-29) mmol/L Anion Gap 11 L (12-20) BUN 12 (9-16) mg/dL Creatinine 0.80 (0.5-1.4) mg/dL Estim Creat Clear Calc 105.6 Estimated GFR > 60 Random Glucose 108 (60-115) mg/dL Calcium 8.7 (8.4-10.2) mg/dL Magnesium 2.0 (1.6-2.6) mg/dL Total Bilirubin 0.6 (0.0-1.0) mg/dL AST 15 (5-31) U/L ALT 23 (0-31) U/L Alkaline Phosphatase 65 (39-117) U/L Troponin I High Sens < 3.5 (<3.5-17.0) ng/L Total Protein 6.1 L (6.5-8.0) g/dL Albumin 3.6 (3.5-5.0) g/dL Urine Color Urine Appearance Urine pH (5.0-9.0) Ur Specific [place] (1.005-1.025) Urine Protein (Neg-Trace) mg/dL Urine Glucose (UA) (Negative) mg/dL Urine Ketones (Negative) mg/dL Urine Blood (Negative) Urine Nitrite (Negative) Ur Leukocyte Esterase (Negative) Influenza Type A (PCR) (Negative) Influenza Type B (PCR) (Negative) RSV RNA Qual (PCR) (Negative) SARS-CoV-2 RNA (RT-PCR) (Negative) 11/20/22 11/20/22 Range/Units 14:02 14:02 WBC (4.8-10.8) X10*3/uL RBC (4.20-5.50) X10*6/uL Hgb (12.0-16.0) g/dl Hct (37.0-47.0) % MCV (80.0-98.0) fL MCH (27.0-33.0) pg MCHC (31.0-35.0) g/dl RDW (11.0-16.0) % Plt Count (160-400) X10*3/uL MPV (9.4-12.3) fL Immature Gran % (Auto) (0.0-0.4) % Neut % (Auto) (45-73) % Lymph % (Auto) (20-40) % [place] % (Auto) (2-11) % Eos % (Auto) (0-4) % Baso % (Auto) (0-2) % Lymph # (Auto) (1.2-4.9) X10*3/uL [place] # (Auto) (0.1-1.2) X10*3/uL Eos # (Auto) (0.0-0.4) X10*3/uL Baso # (Auto) (0.0-0.2) X10*3/uL Abs Immat Gran (auto) (0.00-0.03) X10*3/uL Absolute Neuts (auto) (2.0-8.3) x10*3/uL Absolute Nucleated RBC (0.0-0.012) X10*3/uL Nucleated RBC % (auto) (0.0-0.2) /100WBC Sodium (135-145) mmol/L Potassium (3.3-5.1) mmol/L Chloride (96-108) mmol/L Carbon Dioxide (22-29) mmol/L Anion Gap (12-20) BUN (9-16) mg/dL Creatinine (0.5-1.4) mg/dL Estim Creat Clear Calc Estimated GFR Random Glucose (60-115) mg/dL Calcium (8.4-10.2) mg/dL Magnesium (1.6-2.6) mg/dL Total Bilirubin (0.0-1.0) mg/dL AST (5-31) U/L ALT (0-31) U/L Alkaline Phosphatase (39-117) U/L Troponin I High Sens (<3.5-17.0) ng/L Total Protein (6.5-8.0) g/dL Albumin (3.5-5.0) g/dL Urine Color Yellow Urine Appearance Clear Urine pH 5.5 (5.0-9.0) Ur Specific [place] 1.025 (1.005-1.025) Urine Protein Negative (Neg-Trace) mg/dL Urine Glucose (UA) Negative (Negative) mg/dL Urine Ketones Negative (Negative) mg/dL Urine Blood Negative (Negative) Urine Nitrite Negative (Negative) Ur Leukocyte Esterase Negative (Negative) Influenza Type A (PCR) NEGATIVE (Negative) Influenza Type B (PCR) NEGATIVE (Negative) RSV RNA Qual (PCR) NEGATIVE (Negative) SARS-CoV-2 RNA (RT-PCR) NEGATIVE (Negative) <ROMULO Mojica - Last Filed: 11/20/22 12:39> Lab Results 11/20/22 11/20/22 11/20/22 Range/Units 14:02 14:02 14:02 WBC 6.2 (4.8-10.8) X10*3/uL RBC 4.90 (4.20-5.50) X10*6/uL Hgb 13.1 (12.0-16.0) g/dl Hct 41.4 (37.0-47.0) % MCV 84.5 (80.0-98.0) fL MCH 26.7 L (27.0-33.0) pg MCHC 31.6 (31.0-35.0) g/dl RDW 14.5 (11.0-16.0) % Plt Count 206 (160-400) X10*3/uL MPV 11.2 (9.4-12.3) fL Immature Gran % (Auto) 0.2 (0.0-0.4) % Neut % (Auto) 68.6 (45-73) % Lymph % (Auto) 21.5 (20-40) % [place] % (Auto) 6.8 (2-11) % Eos % (Auto) 2.3 (0-4) % Baso % (Auto) 0.6 (0-2) % Lymph # (Auto) 1.3 (1.2-4.9) X10*3/uL [place] # (Auto) 0.4 (0.1-1.2) X10*3/uL Eos # (Auto) 0.1 (0.0-0.4) X10*3/uL Baso # (Auto) 0.0 (0.0-0.2) X10*3/uL Abs Immat Gran (auto) 0.01 (0.00-0.03) X10*3/uL Absolute Neuts (auto) 4.3 (2.0-8.3) x10*3/uL Absolute Nucleated RBC 0.000 (0.0-0.012) X10*3/uL Nucleated RBC % (auto) 0.0 (0.0-0.2) /100WBC Sodium 141 (135-145) mmol/L Potassium 4.6 D (3.3-5.1) mmol/L Chloride 110 H (96-108) mmol/L Carbon Dioxide 25 (22-29) mmol/L Anion Gap 11 L (12-20) BUN 12 (9-16) mg/dL Creatinine 0.80 (0.5-1.4) mg/dL Estim Creat Clear Calc 105.6 Estimated GFR > 60 Random Glucose 108 (60-115) mg/dL Calcium 8.7 (8.4-10.2) mg/dL Magnesium 2.0 (1.6-2.6) mg/dL Total Bilirubin 0.6 (0.0-1.0) mg/dL AST 15 (5-31) U/L ALT 23 (0-31) U/L Alkaline Phosphatase 65 (39-117) U/L Troponin I High Sens < 3.5 (<3.5-17.0) ng/L Total Protein 6.1 L (6.5-8.0) g/dL Albumin 3.6 (3.5-5.0) g/dL Urine Color Urine Appearance Urine pH (5.0-9.0) Ur Specific [place] (1.005-1.025) Urine Protein (Neg-Trace) mg/dL Urine Glucose (UA) (Negative) mg/dL Urine Ketones (Negative) mg/dL Urine Blood (Negative) Urine Nitrite (Negative) Ur Leukocyte Esterase (Negative) Influenza Type A (PCR) (Negative) Influenza Type B (PCR) (Negative) RSV RNA Qual (PCR) (Negative) SARS-CoV-2 RNA (RT-PCR) (Negative) 11/20/22 11/20/22 Range/Units 14:02 14:02 WBC (4.8-10.8) X10*3/uL RBC (4.20-5.50) X10*6/uL Hgb (12.0-16.0) g/dl Hct (37.0-47.0) % MCV (80.0-98.0) fL MCH (27.0-33.0) pg MCHC (31.0-35.0) g/dl RDW (11.0-16.0) % Plt Count (160-400) X10*3/uL MPV (9.4-12.3) fL Immature Gran % (Auto) (0.0-0.4) % Neut % (Auto) (45-73) % Lymph % (Auto) (20-40) % [place] % (Auto) (2-11) % Eos % (Auto) (0-4) % Baso % (Auto) (0-2) % Lymph # (Auto) (1.2-4.9) X10*3/uL [place] # (Auto) (0.1-1.2) X10*3/uL Eos # (Auto) (0.0-0.4) X10*3/uL Baso # (Auto) (0.0-0.2) X10*3/uL Abs Immat Gran (auto) (0.00-0.03) X10*3/uL Absolute Neuts (auto) (2.0-8.3) x10*3/uL Absolute Nucleated RBC (0.0-0.012) X10*3/uL Nucleated RBC % (auto) (0.0-0.2) /100WBC Sodium (135-145) mmol/L Potassium (3.3-5.1) mmol/L Chloride (96-108) mmol/L Carbon Dioxide (22-29) mmol/L Anion Gap (12-20) BUN (9-16) mg/dL Creatinine (0.5-1.4) mg/dL Estim Creat Clear Calc Estimated GFR Random Glucose (60-115) mg/dL Calcium (8.4-10.2) mg/dL Magnesium (1.6-2.6) mg/dL Total Bilirubin (0.0-1.0) mg/dL AST (5-31) U/L ALT (0-31) U/L Alkaline Phosphatase (39-117) U/L Troponin I High Sens (<3.5-17.0) ng/L Total Protein (6.5-8.0) g/dL Albumin (3.5-5.0) g/dL Urine Color Yellow Urine Appearance Clear Urine pH 5.5 (5.0-9.0) Ur Specific [place] 1.025 (1.005-1.025) Urine Protein Negative (Neg-Trace) mg/dL Urine Glucose (UA) Negative (Negative) mg/dL Urine Ketones Negative (Negative) mg/dL Urine Blood Negative (Negative) Urine Nitrite Negative (Negative) Ur Leukocyte Esterase Negative (Negative) Influenza Type A (PCR) NEGATIVE (Negative) Influenza Type B (PCR) NEGATIVE (Negative) RSV RNA Qual (PCR) NEGATIVE (Negative) SARS-CoV-2 RNA (RT-PCR) NEGATIVE (Negative) <Flower Le NP - Last Filed: 11/20/22 16:30> Discharge Plan Discharge Clinical Impression: Epigastric abdominal pain <ROMULO Mojica - Last Filed: 11/20/22 12:39> Patient Disposition: Home, Self-Care <ROMULO Mojica - Last Filed: 11/20/22 12:39> Instructions: Epigastric Pain (ED) <ROMULO Mojica - Last Filed: 11/20/22 12:39> Additional Instructions: Your nasal swab is negative for influenza, RSV, and COVID-19. Your blood work is unremarkable with a glucose level 108. Your cardiac blood work is negative. Your chest x-ray is negative for acute cardiopulmonary infection or disease. Your EKG is normal sinus rhythm with no significant change from her last EKG which was done on 08/12/2022. Your history, physical exam, and diagnostic exams are consistent with epigastric abdominal pain not of cardiac origin. You are safe for discharge at this time. You may manage your discomfort with [id number] Tylenol and/or Motrin. Please return to the emergency department for new, worsening, or concerning emergent symptoms. Recommended follow-up with the primary care provider for further treatment and management. <ROMULO Mojica - Last Filed: 11/20/22 12:39> Prescriptions: No Action (DME) blood-glucose meter [FreeStyle Lite Meter] Kit See Rx Instructions .Route Qty: 1 0RF Rx Instructions: As directed (DME) FreeStyle Test Strip See Rx Instructions .Route Qty: 50 11RF Rx Instructions: Use 1 test strip once a day (DME) lancets [FreeStyle Lancets] 28 gauge misc See Rx Instructions .Route Qty: 100 11RF Rx Instructions: Use 1 lancet once a day atorvastatin 20 mg tablet 20 mg PO DAILY Qty: 30 6RF metformin 500 mg tablet 500 mg PO BID 90 Days Qty: 180 1RF fenofibrate 54 mg tablet 54 mg PO DAILY Qty: 90 1RF omeprazole 20 mg capsule,delayed release(DR/EC) 20 mg PO DAILY 90 Days Qty: 90 3RF escitalopram oxalate 10 mg tablet 10 mg PO DAILY Qty: 90 1RF hydrochlorothiazide 25 mg tablet 25 mg PO QAM Qty: 30 3RF diclofenac sodium [Arthritis Pain (diclofenac)] 1 % gel 2 g topical QID PRN (Reason: pain) Qty: 100 0RF Rx Instructions: apply to single elbow, wrist or hand; for hand includes palm/fingers/back of hand levothyroxine 175 mcg tablet 175 mcg PO DAILY 90 Days Qty: 90 0RF acetaminophen 500 mg capsule 500 mg PO Q6H PRN (Reason: pain) Qty: 20 0RF cyclobenzaprine 5 mg tablet 5 mg PO TID PRN (Reason: muscle spasm) Qty: 10 0RF oxycodone-acetaminophen [Percocet] 5-325 mg tablet 1 tab PO Q4-6H PRN (Reason: pain) Qty: 30 0RF Rx Instructions: Partial Fill upon patient request. ibuprofen 600 mg tablet 600 mg PO Q6H PRN (Reason: pain) Qty: 30 0RF (DME) pen needle, diabetic [BD Ultra-Fine Mini Pen Needle] 31 gauge x 3/16 needle See Rx Instructions subcut BEDTIME Qty: 50 Rx Instructions: As directed Tresiba FlexTouch U-100 100 unit/mL (3 mL) insulin pen 30 unit subcut BEDTIME cholecalciferol (vitamin D3) [Vitamin D3] 50 mcg (2,000 unit) capsule 50 mcg PO DAILY (DME) pen needle, diabetic [BD Rekha 2nd Gen Pen Needle] 32 gauge x 5/32 needle See Rx Instructions .ROUTE QAM Qty: 50 Rx Instructions: As directed docusate sodium 100 mg capsule 100 mg PO BEDTIME Qty: 90 3RF Citrucel 500 mg tablet 500 mg PO DAILY Qty: 90 2RF Rx Instructions: take it with full glass of water hydrocortisone [Proctosol HC] 2.5 % cream with perineal applicator 1 appl CO BID-QID PRN (Reason: hemorrhoids) Qty: 30 2RF <ROMULO Mojica - Last Filed: 11/20/22 12:39> Referrals: Alesia James MD [Primary Care Provider] - <ROMULO Mojica - Last Filed: 11/20/22 12:39> Print Language: Mongolian <ROMULO Mojica - Last Filed: 11/20/22 12:39>
--- NOTE | 2022-11-20 12:39 | ECG_ITS ---
Test Reason : CHEST PAIN Blood Pressure : / mmHG Vent. Rate : 080 BPM Atrial Rate : 080 BPM P-R Int : 130 ms QRS Dur : 086 ms QT Int : 372 ms P-R-T Axes : 062 005 017 degrees QTc Int : 429 ms Normal sinus rhythm Minimal voltage criteria for LVH, may be normal variant ( R in aVL ) Borderline ECG When compared with ECG of 12-AUG-2022 13:26, No significant change was found Referred By: Sindhu Chin Electronically Signed By:RAMÓN HUMPHREYS
[2022-11-20 14:10] LABS: MANUAL DIFF FLAG NO
[2022-11-20 14:13] LABS: Appearance Urine Clear; Color Urine Yellow; Glucose Urine UA Negative (Negative); Leukocyte Esterase Urine Negative (Negative); Nitrite Urine Negative (Negative); PH 5.5 (5.0-9.0); Specific Gravity - Urine 1.025 (1.005-1.025); Urine Blood Negative (Negative); Urine Ketones Negative (Negative); Urine Protein Negative (Neg-Trace)
[2022-11-20 14:15] LABS: Basophils Percent Auto 0.6 % (0-2); Eosinophils Absolute Auto 0.1 X10*3/uL (0.0-0.4); Eosinophils Percent Auto 2.3 % (0-4); Hematocrit 41.4 % (37.0-47.0); Hemoglobin 13.1 g/dl (12.0-16.0); Imm Gran Abs Auto 0.01 X10*3/uL (0.00-0.03); Imm Gran Pct Auto 0.2 % (0.0-0.4); Lymphocytes Absolute Auto 1.3 X10*3/uL (1.2-4.9); Lymphocytes Percent Auto 21.5 % (20-40); Mean Corpuscular HGB Conc 31.6 g/dl (31.0-35.0); Mean Corpuscular Hemoglobin 26.7 pg (27.0-33.0); Mean Corpuscular Volume 84.5 fL (80.0-98.0); Mean Platelet Volume 11.2 fL (9.4-12.3); Monocytes Absolute Auto 0.4 X10*3/uL (0.1-1.2); Monocytes Percent Auto 6.8 % (2-11); Neutrophils Absolute Auto 4.3 x10*3/uL (2.0-8.3); Neutrophils Percent Auto 68.6 % (45-73); Platelet Count 206 X10*3/uL (160-400); Red Cell Distribution Width 14.5 % (11.0-16.0); White Blood Count 6.2 X10*3/uL (4.8-10.8)
[2022-11-20 14:26] LABS: Alanine Aminotransferase 23 U/L (0-31); Albumin Level 3.6 g/dL (3.5-5.0); Alkaline Phosphatase 65 U/L (39-117); Anion Gap 11 (12-20); Aspartate Amino Transferase 15 U/L (5-31); Bilirubin Total 0.6 mg/dL (0.0-1.0); Blood Urea Nitrogen 12 mg/dL (9-16); Calcium 8.7 mg/dL (8.4-10.2); Carbon Dioxide 25 mmol/L (22-29); Chloride 110 mmol/L (96-108); Creatinine Clr Calc Pharmacy 105.6; Estimated Glomerular Filt Rate > 60; Glucose Random 108 mg/dL (60-115); Potassium 4.6 mmol/L (3.3-5.1); Sodium 141 mmol/L (135-145); Total Protein 6.1 g/dL (6.5-8.0)
[2022-11-20 14:44] LABS: Troponin-I High Sensitivity < 3.5 ng/L (<3.5-17.0)
[2022-11-20 14:52] LABS: Influenza A PCR NEGATIVE (Negative); Influenza B PCR NEGATIVE (Negative); Resp Syncy Virus RNA Qual PCR NEGATIVE (Negative); SARS COV2 PCR INHOUSE NEGATIVE (Negative)
[2022-11-20 15:19] VITALS: BP 150/88; PULSE 65; RESP 16; TEMP 36.8; O2SAT 100
[2022-11-20] MEDS: Famotidine 20 MG TABLET PO (15:21)
--- NOTE | 2022-11-20 15:24 | PC.NURSE ---
Pt refused lidocaine and maalox.
== END 2022-11-20 16:34 | disposition home or self-care (01) ==
PROVIDERS: Physician Assistant Medical; Emergency Provider Emergency Medicine Emergency Medical Services; PCP Internal Medicine
DX: R10.13 Epigastric pain (principal); Z20.822 Contact with and (suspected) exposure to COVID-19; Z20.828 Contact with and (suspected) exposure to other viral communicable diseases; E11.9 Type 2 diabetes mellitus without complications; I10 Essential (primary) hypertension; E78.5 Hyperlipidemia, unspecified; Z79.4 Long term (current) use of insulin; Z79.899 Other long term (current) drug therapy; Z79.02 Long term (current) use of antithrombotics/antiplatelets
CPT/HCPCS: 0241U; 71046; 80053; 81003; 83735; 84484; 85025; 93005; 99283; 99284

== ENCOUNTER 2022-12-12 07:23 | Emergency (ER) | payer OTHER, SELFPAY ==
--- NOTE | ~2022-12-12 | XR_ITS ---
EXAMINATION: XR CHEST CLINICAL INFORMATION: Cough COMPARISON: Chest x-ray November 20, 2022 TECHNIQUE: 2 views of the chest were obtained. FINDINGS: Cardiac silhouette is normal in size. Right chest port is stable in position with tip terminating within the distal SVC. The lungs are adequately aerated. Mild patchy opacity projects over the left upper lung. No pleural effusion. No pneumothorax. No acute osseous abnormality. Surgical clips in the right upper abdomen consistent with prior cholecystectomy. XR/XR chest 2V IMPRESSION: Mild patchy opacity of the left upper lung. This is a nonspecific finding and may represent atelectasis, however, a developing infiltrate is suspected. Follow-up imaging recommended status post treatment to ensure resolution.
[2022-12-12 07:38] VITALS: BP 128/80; PULSE 104; RESP 20; TEMP 36.8; O2SAT 96; BMI 33.4
[2022-12-12 08:05] LABS: COVID-19 Test Negative (Negative); IDNOW Serial# BCCEAD1C
[2022-12-12 08:07] LABS: IDNOW Serial# 16C4AD1C; Influenza A Negative (Negative); Influenza B2 Negative (Negative)
[2022-12-12] MEDS: Ibuprofen 400 MG TABLET PO (08:33)
[2022-12-12] MEDS: Acetaminophen 325 MG TABLET 975 MG PO (08:33)
--- NOTE | 2022-12-12 08:40 | ED_ITS ---
HPI - URI/Sore Throat General Chief Complaint: Upper Respiratory Symptoms Stated Complaint: Flu symptoms Time Seen by Provider: 12/12/22 07:39 Source: patient Mode of arrival: ambulatory History of Present Illness HPI Narrative: 42-year-old female with 3 days of increasing congestion, rhinorrhea, cough, sore throat and body aches with subjective fevers. Related Data Home Medications Medication Instructions Recorded Confirmed insulin degludec 100 unit/mL (3 30 unit subcut BEDTIME 11/05/21 08/11/22 mL) subcutaneous pen (Tresiba FlexTouch U-100 insulin) pen needle, diabetic 31 gauge x #50 ea 11/05/21 07/15/22 3/16 (BD Ultra-Fine Mini Pen Needle) cholecalciferol (vitamin D3) 50 50 mcg PO DAILY 03/23/22 08/11/22 mcg (2,000 unit) capsule (Vitamin D3) pen needle, diabetic 32 gauge x #50 ea 05/11/22 07/15/22/32 (BD Rekha 2nd Gen Pen Needle) Previous Rx's Medication Instructions Recorded blood sugar diagnostic (FreeStyle #50 ea 06/30/21 Test strips) blood-glucose meter (FreeStyle #1 ea 06/30/21 Lite Meter kit) lancets 28 gauge (FreeStyle #100 ea 06/30/21 Lancets) acetaminophen 500 mg capsule 500 mg PO Q6H PRN pain #20 caps 03/15/22 cyclobenzaprine 5 mg tablet 5 mg PO TID PRN muscle spasm #10 03/15/22 tabs docusate sodium 100 mg capsule 100 mg PO BEDTIME #90 caps 05/11/22 hydrocortisone 2.5 % topical cream 1 appl SD BID-QID PRN hemorrhoids 05/11/22 with perineal applicator #30 grams (Proctosol HC) methylcellulose (laxative) 500 mg 500 mg PO DAILY #90 tabs 05/11/22 tablet (Citrucel) atorvastatin 20 mg tablet 20 mg PO DAILY #30 tabs 06/16/22 metformin 500 mg tablet 500 mg PO BID 90 days #180 tabs 08/13/22 ibuprofen 600 mg tablet 600 mg PO Q6H PRN pain #30 tabs 08/24/22 oxycodone-acetaminophen 5 mg-325 1 tab PO Q4-6H PRN pain #30 tabs 08/24/22 mg tablet (Percocet) fenofibrate 54 mg tablet 54 mg PO DAILY #90 tabs 10/14/22 diclofenac sodium 1 % topical gel 2 g topical QID PRN pain #100 grams 10/25/22 (Arthritis Pain (diclofenac)) escitalopram oxalate 10 mg tablet 10 mg PO DAILY #90 tabs 10/25/22 hydrochlorothiazide 25 mg tablet 25 mg PO QAM #30 tabs 10/25/22 levothyroxine 175 mcg tablet 175 mcg PO DAILY 90 days #90 tabs 10/25/22 omeprazole 20 mg capsule,delayed 20 mg PO DAILY 90 days #90 caps 10/25/22 release benzonatate 200 mg capsule 200 mg PO TID PRN cough #14 caps 12/12/22 Allergies Allergy/AdvReac Type Severity Reaction Status Date / Time Seasonal Allergies Allergy Mild Unknown Verified 09/06/22 09:07 Review of Systems Review of Systems: Pertinent positives and negatives as stated in HPI [facility] Past Medical History Source: nursing notes reviewed Medical History LAXMI (acute kidney injury) Allergic rhinitis Blurry vision COVID-19 Diabetes mellitus Essential hypertension NAVNEET (generalized anxiety disorder) GERD (gastroesophageal reflux disease) Hemorrhoids with complication Hypothyroid Mixed hyperlipidemia Moderate recurrent major depression Port-A-Cath in place Sleep apnea Surgical History History of appendectomy History of cholecystectomy History of esophagogastroduodenoscopy (EGD) History of eye surgery History of hemorrhoidectomy (~08/24/22) History of hysterectomy History of removal of both ovaries History of surgery History of tonsillectomy History of tubal ligation Hx of colonoscopy Family History Family History Father Diabetes Hypertension Glaucoma Stroke Anxiety Mother Diabetes Hypertension Breast cancer History of mastectomy Depression Family/Other FH: mental illness Social History Social History Household Members Other:: [id number] w/special needs Housing: House Are you a primary primary care pediatrician to a significant other at home: Yes (mother coming to assist patient post-op @ home) Do you presently have visiting nurse or other home services: No Alcohol intake: never Patient Tobacco Use Status: Never used Tobacco Smoked in Last 30 Days: No e-Cigarette/Vaping Use: Never Used Second Hand Smoke Exposure: No Use of substances other than those prescribed or required for medical reasons: No Advance Directives: No Advance Directives Information Provided: No service: No Current occupational status: employed Current occupational exposures/hazards: No Cognitive needs: No Hearing needs: No Vision needs: Yes Physical Exam Vital Signs: Vital Signs: Last Vital Signs Temp 98.3 F 12/12/22 07:38 Pulse 104 H 12/12/22 07:38 Resp 20 12/12/22 07:38 BP 128/80 12/12/22 07:38 Pulse Ox 96 12/12/22 07:38 O2 Del Method 12/12/22 07:38 BMI result Body Mass Index 33.4 VITAL SIGNS: Reviewed. GENERAL: Well developed, well nourished, in no acute distress. HEAD: Normocephalic/atraumatic EYES: PERRLA, EOMI EARS: Ext canals without abnormality, TMs non-bulging and non-erythematous NOSE: Nasal congestion OROPHARYNX: no oral lesions noted, posterior pharynx clear and non-erythematous without noted tonsillar enlargement/erythema/exudates NECK: Supple, no adenopathy LUNGS: Normal breath sounds. No adventitious sounds or accessory muscle use. SpO2<96> CARDIOVASCULAR: Regular rate and rhythm without noted murmurs ABDOMEN: Soft, non-tender, non-distended with bowel sounds. MUSCULOSKELETAL: No tenderness, deformities, or effusions noted on gross inspection. EXTREMITIES: No cyanosis, clubbing or edema. SKIN: Inspection of the skin reveals no rashes NEUROLOGIC: Alert and oriented x 4. Strength and sensation to light touch were grossly intact x 4. Medications Administered Discontinued Medications Generic Name Dose Route Start Last Admin Trade Name Freq PRN Reason Stop Dose Admin Acetaminophen 975 mg 12/12/22 08:13 12/12/22 08:33 Acetaminophen 325 Mg Tablet PO 12/12/22 08:14 975 mg ONCE ONE Administration Ibuprofen 400 mg 12/12/22 08:13 12/12/22 08:33 Ibuprofen 400 Mg Tablet PO 12/12/22 08:14 400 mg ONCE ONE Administration Medical Decision Making Medical Decision Making MDM Narrative: 42-year-old female and on review of all investigations my interpretation is a viral URI that is not COVID or influenza positive and no evidence to suggest pneumonia. Patient is otherwise discharged home with prescription for Tessalon and supportive recommendations. Differential Diagnosis Differential Diagnoses: The differential diagnosis associated with the presentation includes Please see discussion above Lab Data MDM Lab Attestation statement: I reviewed the patient's lab results. Please see the discussion above Labs: Lab Results 12/12/22 12/12/22 Range/Units 07:43 07:43 COVID-19 (SIGRID) Negative (Negative) COVID-19 Clin Com See Note Influenza Type A (MARILIA) Negative (Negative) Influenza Type B (MARILIA) Negative (Negative) Influenza A & B Note See Note Radiology Impression Radiologist Impression: My interpretation is in agreement with radiology's impression of the imaging study. External Record Review External record reviewed: Outpatient record and Prior outpatient labs Chronic Conditions Patient?s care impacted by: Diabetes Discharge Plan Discharge Clinical Impression: Viral syndrome, URI (upper respiratory infection) Patient Disposition: Home, Self-Care Instructions: Upper Respiratory Infection (ED), Viral Syndrome (ED) Additional Instructions: 1. Resume all home medications as prescribed. 2. Recommend [id number] Tylenol/ibuprofen as needed for headaches, body aches, temperatures greater than 100.4. Increase the amount of water that you drink and you have been prescribed a cough suppressant that is available at your pharmacy. 3. Please follow-up with primary care provider on Tuesday morning. Return to the ER for any worsening symptoms. Prescriptions: New benzonatate 200 mg capsule 200 mg PO TID PRN (Reason: cough) Qty: 14 0RF No Action (DME) blood-glucose meter [FreeStyle Lite Meter] Kit See Rx Instructions .Route Qty: 1 0RF Rx Instructions: As directed (DME) FreeStyle Test Strip See Rx Instructions .Route Qty: 50 11RF Rx Instructions: Use 1 test strip once a day (DME) lancets [FreeStyle Lancets] 28 gauge misc See Rx Instructions .Route Qty: 100 11RF Rx Instructions: Use 1 lancet once a day atorvastatin 20 mg tablet 20 mg PO DAILY Qty: 30 6RF metformin 500 mg tablet 500 mg PO BID 90 Days Qty: 180 1RF fenofibrate 54 mg tablet 54 mg PO DAILY Qty: 90 1RF omeprazole 20 mg capsule,delayed release(DR/EC) 20 mg PO DAILY 90 Days Qty: 90 3RF escitalopram oxalate 10 mg tablet 10 mg PO DAILY Qty: 90 1RF hydrochlorothiazide 25 mg tablet 25 mg PO QAM Qty: 30 3RF diclofenac sodium [Arthritis Pain (diclofenac)] 1 % gel 2 g topical QID PRN (Reason: pain) Qty: 100 0RF Rx Instructions: apply to single elbow, wrist or hand; for hand includes palm/fingers/back of hand levothyroxine 175 mcg tablet 175 mcg PO DAILY 90 Days Qty: 90 0RF acetaminophen 500 mg capsule 500 mg PO Q6H PRN (Reason: pain) Qty: 20 0RF cyclobenzaprine 5 mg tablet 5 mg PO TID PRN (Reason: muscle spasm) Qty: 10 0RF oxycodone-acetaminophen [Percocet] 5-325 mg tablet 1 tab PO Q4-6H PRN (Reason: pain) Qty: 30 0RF Rx Instructions: Partial Fill upon patient request. ibuprofen 600 mg tablet 600 mg PO Q6H PRN (Reason: pain) Qty: 30 0RF (DME) pen needle, diabetic [BD Ultra-Fine Mini Pen Needle] 31 gauge x 3/16 needle See Rx Instructions subcut BEDTIME Qty: 50 Rx Instructions: As directed Tresiba FlexTouch U-100 100 unit/mL (3 mL) insulin pen 30 unit subcut BEDTIME cholecalciferol (vitamin D3) [Vitamin D3] 50 mcg (2,000 unit) capsule 50 mcg PO DAILY (DME) pen needle, diabetic [BD Rekha 2nd Gen Pen Needle] 32 gauge x 5/32 needle See Rx Instructions .ROUTE QAM Qty: 50 Rx Instructions: As directed docusate sodium 100 mg capsule 100 mg PO BEDTIME Qty: 90 3RF Citrucel 500 mg tablet 500 mg PO DAILY Qty: 90 2RF Rx Instructions: take it with full glass of water hydrocortisone [Proctosol HC] 2.5 % cream with perineal applicator 1 appl SD BID-QID PRN (Reason: hemorrhoids) Qty: 30 2RF Referrals: Alesia James MD [Primary Care Provider] -
[2022-12-12] MEDS: Benzonatate 100 MG CAPSULE 200 MG PO (08:46)
== END 2022-12-12 08:52 | disposition home or self-care (01) ==
PROVIDERS: Emergency Provider Student in an Organized Health Care Education/Training Program; PCP Internal Medicine
DX: J06.9 Acute upper respiratory infection, unspecified (principal); B34.9 Viral infection, unspecified; J02.8 Acute pharyngitis due to other specified organisms; R05.9 Cough, unspecified; R50.9 Fever, unspecified; M79.10 Myalgia, unspecified site; Z20.822 Contact with and (suspected) exposure to COVID-19; Z20.828 Contact with and (suspected) exposure to other viral communicable diseases; Z79.899 Other long term (current) drug therapy
CPT/HCPCS: 71046; 87502; 87635; 99284

== ENCOUNTER → 2023-01-04 09:07 | Outpatient (BNVA) | payer OTHER, SELFPAY | PROVIDERS: PCP Internal Medicine; Visit Provider Nurse Practitioner Family | DX: K64.9 Unspecified hemorrhoids (principal); K59.01 Slow transit constipation | CPT/HCPCS: 99212 ==

== ENCOUNTER → 2023-01-13 15:52 | Outpatient (BNVA) | payer OTHER, SELFPAY | PROVIDERS: PCP Internal Medicine; Visit Provider Surgery | DX: E07.9 Disorder of thyroid, unspecified (principal); E05.90 Thyrotoxicosis, unspecified without thyrotoxic crisis or storm; E11.9 Type 2 diabetes mellitus without complications; N17.9 Acute kidney failure, unspecified; T82.848A Pain due to vascular prosthetic devices, implants and grafts, initial encounter; Z95.828 Presence of other vascular implants and grafts | CPT/HCPCS: 99212 ==

== ENCOUNTER 2023-01-24 07:18 | Emergency (ER) | payer OTHER, SELFPAY ==
[2023-01-24 07:23] VITALS: BP 136/84; PULSE 94; RESP 18; TEMP 36.6; O2SAT 97; BMI 32.4
[2023-01-24 08:20] LABS: Appearance Urine Cloudy; Color Urine Yellow; Glucose Urine UA Negative (Negative); Leukocyte Esterase Urine Negative (Negative); Nitrite Urine Negative (Negative); PH 5.5 (5.0-9.0); Specific Gravity - Urine >= 1.030 (1.005-1.025); Urine Blood Negative (Negative); Urine Ketones Negative (Negative); Urine Protein Trace mg/dL (Neg-Trace)
[2023-01-24 08:22] LABS: UPreg QC Valid YES; Urine Pregnancy NEGATIVE (NEGATIVE)
--- NOTE | 2023-01-24 09:27 | ED.BACK ---
HPI - Back Pain/Injury General Chief Complaint: Back Pain/Injury Stated Complaint: back pain traveling down R leg Time Seen by Provider: 01/24/23 07:52 Source: patient Mode of arrival: ambulatory History of Present Illness HPI Narrative: 42-year-old female who comes in with chronic back pain for 3 weeks denies any traumatic event, denies any bowel or bladder dysfunction or groin numbness denies any fever, chills, nausea, vomiting and states that the pain radiates from the lower right side of her back and wraps around on to her right lower extremity. Related Data Previous Rx's Medication Instructions Recorded blood sugar diagnostic (FreeStyle #50 ea 06/30/21 Test strips) blood-glucose meter (FreeStyle #1 ea 06/30/21 Lite Meter kit) lancets 28 gauge (FreeStyle #100 ea 06/30/21 Lancets) metformin 500 mg tablet 500 mg PO BID 90 days #180 tabs 08/13/22 escitalopram oxalate 10 mg tablet 10 mg PO DAILY #90 tabs 10/25/22 levothyroxine 175 mcg tablet 175 mcg PO DAILY 90 days #90 tabs 10/25/22 docusate sodium 100 mg capsule 100 mg PO BEDTIME #90 caps 01/04/23 hydrocortisone 2.5 % topical cream 1 appl NE BID-QID PRN hemorrhoids 01/04/23 with perineal applicator #30 grams (Proctosol HC) Allergies Allergy/AdvReac Type Severity Reaction Status Date / Time Seasonal Allergies Allergy Mild Unknown Verified 01/13/23 16:02 Review of Systems Review of Systems: Pertinent positives and negatives as stated in HPI [facility] Past Medical History Source: nursing notes reviewed Medical History LAXMI (acute kidney injury) Allergic rhinitis Blurry vision COVID-19 Diabetes mellitus Essential hypertension NAVNEET (generalized anxiety disorder) GERD (gastroesophageal reflux disease) Hemorrhoids with complication Hypothyroid Mixed hyperlipidemia Moderate recurrent major depression Port-A-Cath in place Port-A-Cath in place Sleep apnea Surgical History History of appendectomy History of cholecystectomy History of esophagogastroduodenoscopy (EGD) History of eye surgery History of hemorrhoidectomy (~08/24/22) History of hysterectomy History of removal of both ovaries History of surgery History of tonsillectomy History of tubal ligation Hx of colonoscopy Family History Family History Father Diabetes Hypertension Glaucoma Stroke Anxiety Mother Diabetes Hypertension Breast cancer History of mastectomy Depression Family/Other FH: mental illness Social History Social History Household Members Other:: [id number] w/special needs Housing: House Are you a primary rn homecare to a significant other at home: Yes (mother coming to assist patient post-op @ home) Do you presently have visiting nurse or other home services: No Alcohol intake: current Alcohol intake frequency: holidays/special occasions only Patient Tobacco Use Status: Never used Tobacco Smoked in Last 30 Days: No e-Cigarette/Vaping Use: Never Used Second Hand Smoke Exposure: No Use of substances other than those prescribed or required for medical reasons: No Advance Directives: No Advance Directives Information Provided: Yes Patient : No service: No Current occupational status: employed Current occupational exposures/hazards: No Cognitive needs: No Hearing needs: No Vision needs: Yes Physical Exam Vital Signs: Vital Signs: Last Vital Signs Temp 98 F 01/24/23 07:23 Pulse 94 01/24/23 07:23 Resp 18 01/24/23 07:23 BP 136/84 01/24/23 07:23 Pulse Ox 97 01/24/23 07:23 O2 Del Method 01/24/23 07:23 BMI result Body Mass Index 32.4 VITAL SIGNS: Reviewed. GENERAL: Well developed, well nourished, in no acute distress. HEAD: Normocephalic/atraumatic EYES: PERRLA, EOMI LUNGS: Normal breath sounds. No adventitious sounds or accessory muscle use. SpO2<97> CARDIOVASCULAR: Regular rate and rhythm without noted murmurs ABDOMEN: Soft, non-tender, non-distended with bowel sounds. BACK: No midline vertebral tenderness or step-offs, there is right lumbar paraspinal tenderness on palpation MUSCULOSKELETAL: No tenderness, deformities, or effusions noted on gross inspection. EXTREMITIES: No cyanosis, clubbing or edema; RIGHT LOWER EXTREMITY: Sensation is intact, palpable DP/PT strength 5/5. SKIN: Inspection of the skin reveals no rashes NEUROLOGIC: Alert and oriented x 4. Strength and sensation to light touch were grossly intact x 4. Medical Decision Making Medical Decision Making MDM Narrative: 42-year-old female with history and clinical presentation after review of investigations my interpretation is as patient has lumbar radiculopathy without red flag symptoms. She is given combination analgesics as well as a lidocaine patch will be discharged home in stable condition with instructions to follow-up with her primary care provider and seek physical therapy if necessary. Differential Diagnosis Please see the discussion above Lab Data Please see the discussion above Labs: Lab Results 01/24/23 01/24/23 Range/Units 08:03 08:03 Urine Color Yellow Urine Appearance Cloudy Urine pH 5.5 (5.0-9.0) Ur Specific [place] >= 1.030 H (1.005-1.025) Urine Protein Trace (Neg-Trace) mg/dL Urine Glucose (UA) Negative (Negative) mg/dL Urine Ketones Negative (Negative) mg/dL Urine Blood Negative (Negative) Urine Nitrite Negative (Negative) Ur Leukocyte Esterase Negative (Negative) Urine Test NEGATIVE (NEGATIVE) External Record Review External record reviewed: Outpatient record and Prior outpatient labs Discharge Plan Discharge Clinical Impression: Chronic back pain, Lumbar radiculopathy, right Patient Disposition: Home, Self-Care Instructions: Back Pain (ED), Lumbar Radiculopathy (ED), Lower Back Exercises (ED) Additional Instructions: 1. Tylenol 1000 mg, orally, every 6 hours as needed for pain control. Do not exceed 4000 mg within 24 hours. 2. Ibuprofen 400 mg, orally with milk or food, every 6 hours as needed for pain control. I recommend that you take this with Tylenol for improved symptom relief. 3. Lidocaine patch apply to area of maximal tenderness on your back as directed on the outside packaging. 4. Follow-up with your primary care provider by calling the office today and possibly discussing a course of physical therapy. Return to the ER for any worsening symptoms. Prescriptions: No Action (DME) blood-glucose meter [FreeStyle Lite Meter] Kit See Rx Instructions .Route Qty: 1 0RF Rx Instructions: As directed (DME) FreeStyle Test Strip See Rx Instructions .Route Qty: 50 11RF Rx Instructions: Use 1 test strip once a day (DME) lancets [FreeStyle Lancets] 28 gauge misc See Rx Instructions .Route Qty: 100 11RF Rx Instructions: Use 1 lancet once a day metformin 500 mg tablet 500 mg PO BID 90 Days Qty: 180 1RF escitalopram oxalate 10 mg tablet 10 mg PO DAILY Qty: 90 1RF levothyroxine 175 mcg tablet 175 mcg PO DAILY 90 Days Qty: 90 0RF docusate sodium 100 mg capsule 100 mg PO BEDTIME Qty: 90 3RF hydrocortisone [Proctosol HC] 2.5 % cream with perineal applicator 1 appl NE BID-QID PRN (Reason: hemorrhoids) Qty: 30 2RF Referrals: Alesia James MD [Primary Care Provider] -
[2023-01-24 09:38] VITALS: BP 153/85; PULSE 63; RESP 14; TEMP 36.6; O2SAT 99
[2023-01-24] MEDS: Acetaminophen 325 MG TABLET 975 MG PO (09:49)
[2023-01-24] MEDS: Lidocaine 4 % Patch ADH..PATCH 1 PATCH TRANSDERMA (09:50)
[2023-01-24] MEDS: Ketorolac Tromethamine 15 MG/ML VIAL IM (09:51)
== END 2023-01-24 10:09 | disposition home or self-care (01) ==
PROVIDERS: Emergency Provider Student in an Organized Health Care Education/Training Program; PCP Internal Medicine
DX: M54.16 Radiculopathy, lumbar region (principal); M54.50 Low back pain, unspecified; Z79.899 Other long term (current) drug therapy
CPT/HCPCS: 81003; 81025; 96372; 99284; J1885

== ENCOUNTER 2023-02-11 08:44 | Day surgery (SDC) | payer OTHER, SELFPAY ==
[2023-02-07 15:26] VITALS: BMI 33.7
--- NOTE | 2023-02-10 11:48 | HO.ANESPROP2 ---
Documented by User: Tamera Murray NP 02/10/23 11:50 HPI - Anesthesia Eval Consult details Narrative: 42yo F for Port-a-Cath Removal Port-A-Cath placed in the past for IV infusions for Tepezza as treatment for her thyroid eye disorder PMFSH Active Problems Active Problems: All Active Problems (Updated 02/07/23 @ 15:26 by Jaky Villalta RN) Right thigh pain (Acute) Meralgia paresthetica of right side (Acute) Hemorrhoids (Acute) Physical exam (Acute) Encounter for removal of tunneled central venous catheter (CVC) with port (Acute) Class 1 obesity with body mass index (BMI) of 32.0 to 32.9 in adult (Acute) Hospital discharge follow-up (Acute) Pneumonia (Acute) Port-A-Cath in place (Acute) Hemorrhoids with complication (Acute) COVID-19 (Acute) LAXMI (acute kidney injury) (Acute) Diabetes mellitus (Acute) NAVNEET (generalized anxiety disorder) (Acute) Moderate recurrent major depression (Acute) Blurry vision (Acute) Essential hypertension (Acute) Allergic rhinitis (Acute) Hypothyroid (Acute) Mixed hyperlipidemia (Acute) GERD (gastroesophageal reflux disease) (Acute) Past Medical History Medical History LAXMI (acute kidney injury) Allergic rhinitis Blurry vision COVID-19 Diabetes mellitus Essential hypertension NAVNEET (generalized anxiety disorder) GERD (gastroesophageal reflux disease) Hemorrhoids with complication Hypothyroid Mixed hyperlipidemia Moderate recurrent major depression Port-A-Cath in place Sleep apnea Family History Family History Father Diabetes Hypertension Glaucoma Stroke Anxiety Mother Diabetes Hypertension Breast cancer History of mastectomy Depression Family/Other FH: mental illness Family history of problems with anesthesia: No Surgical History Surgical History History of appendectomy History of cholecystectomy History of esophagogastroduodenoscopy (EGD) History of eye surgery History of hemorrhoidectomy (~08/24/22) History of hysterectomy History of removal of both ovaries History of surgery History of tonsillectomy History of tubal ligation Hx of colonoscopy History of Problems with Anesthesia: No Social History Social History Household Members Other:: [id number] w/special needs Housing: House Are you a primary resident care manager to a significant other at home: Yes (mother coming to assist patient post-op @ home) Do you presently have visiting nurse or other home services: No Alcohol intake: current Alcohol intake frequency: holidays/special occasions only Patient Tobacco Use Status: Never used Tobacco e-Cigarette/Vaping Use: Never Used Second Hand Smoke Exposure: No Use of substances other than those prescribed or required for medical reasons: No Are you DNR?: No Advance Directives: No Advance Directives Information Provided: Yes service: No Current occupational status: employed Current occupational exposures/hazards: No Cognitive needs: No Hearing needs: No Vision needs: Yes Meds Allergies Allergy/AdvReac Type Severity Reaction Status Date / Time Seasonal Allergies Allergy Mild Unknown Verified 01/13/23 16:02 Home Medications Medication Instructions Recorded Confirmed Last Taken Type fenofibrate 54 mg tablet 54 mg PO DAILY 02/07/23 02/07/23 Unknown History hydrochlorothiazide 25 mg tablet 25 mg PO QAM 02/07/23 02/07/23 Unknown History omeprazole 20 mg capsule,delayed 20 mg PO DAILY 02/07/23 02/07/23 Unknown History release Exam Exam Date and Time: February 10, 2023 1148 Height,Weight and Vital Signs: Height 5 ft 6 in Weight 94.971 kg Pertinent Lab Results Pertinent Lab Results: Laboratory Tests 11/20/22 11/20/22 14:02 14:02 WBC 6.2 Hgb 13.1 Hct 41.4 Plt Count 206 Sodium 141 Potassium 4.6 D Chloride 110 H Carbon Dioxide 25 BUN 12 Creatinine 0.80 Narrative Narrative: EKG 11/2022 Vent. Rate : 080 BPM ? ? Atrial Rate : 080 BPM ?? P-R Int : 130 ms? QRS Dur : 086 ms ? ? QT Int : 372 ms ? ? ? P-R-T Axes : 062 005 017 degrees ?? QTc Int : 429 ms ? Normal sinus rhythm Minimal voltage criteria for LVH, may be normal variant ( R in aVL ) Borderline ECG When compared with ECG of 12-AUG-2022 13:26, No significant change was found Assessment and Plan Assessment Anesthesia Assessment: Chart Reviewed Final Anesthetic Review Family History of Problems with Anesthesia: No History of Problems with Anesthesia: No Documented by User: Susy Gracia MD 02/11/23 10:49 PMFSH Active Problems Active Problems: All Active Problems (Updated 02/11/23 @ 09:59 by Susy Gracia MD) Right thigh pain (Acute) Meralgia paresthetica of right side (Acute) Encounter for removal of tunneled central venous catheter (CVC) with port (Acute) Class 1 obesity with body mass index (BMI) of 32.0 to 32.9 in adult (Acute) Pneumonia (Acute) Port-A-Cath in place (Acute) Hemorrhoids with complication (Acute) COVID-19 (Acute) LAXMI (acute kidney injury) (Acute) Diabetes mellitus (Acute) NAVNEET (generalized anxiety disorder) (Acute) Moderate recurrent major depression (Acute) Blurry vision (Acute) Essential hypertension (Acute) Allergic rhinitis (Acute) Hypothyroid (Acute) Mixed hyperlipidemia (Acute) GERD (gastroesophageal reflux disease) (Acute) YOUNG. Not using CPAP machine Past Medical History Medical History LAXMI (acute kidney injury) Allergic rhinitis Blurry vision COVID-19 Diabetes mellitus Essential hypertension NAVNEET (generalized anxiety disorder) GERD (gastroesophageal reflux disease) Hemorrhoids with complication Hypothyroid Mixed hyperlipidemia Moderate recurrent major depression Port-A-Cath in place Sleep apnea Family History Family History Father Diabetes Hypertension Glaucoma Stroke Anxiety Mother Diabetes Hypertension Breast cancer History of mastectomy Depression Family/Other FH: mental illness Surgical History Surgical History History of appendectomy History of cholecystectomy History of esophagogastroduodenoscopy (EGD) History of eye surgery History of hemorrhoidectomy (~08/24/22) History of hysterectomy History of removal of both ovaries History of surgery History of tonsillectomy History of tubal ligation Hx of colonoscopy Social History Social History Household Members Other:: [id number] w/special needs Housing: House Are you a primary resident care manager to a significant other at home: Yes (mother coming to assist patient post-op @ home) Do you presently have visiting nurse or other home services: No Alcohol intake: current Alcohol intake frequency: holidays/special occasions only Patient Tobacco Use Status: Never used Tobacco e-Cigarette/Vaping Use: Never Used Second Hand Smoke Exposure: No Use of substances other than those prescribed or required for medical reasons: No Are you DNR?: No Advance Directives: No Advance Directives Information Provided: Yes service: No Current occupational status: employed Current occupational exposures/hazards: No Cognitive needs: No Hearing needs: No Vision needs: Yes Meds Allergies Allergy/AdvReac Type Severity Reaction Status Date / Time Seasonal Allergies Allergy Mild Unknown Verified 01/13/23 16:02 Home Medications Medication Instructions Recorded Confirmed Last Taken Type fenofibrate 54 mg tablet 54 mg PO DAILY 02/07/23 02/07/23 Unknown History hydrochlorothiazide 25 mg tablet 25 mg PO QAM 02/07/23 02/07/23 Unknown History omeprazole 20 mg capsule,delayed 20 mg PO DAILY 02/07/23 02/07/23 Unknown History release Exam Height,Weight and Vital Signs: Height 5 ft 6 in Weight 94.971 kg Vital Signs Temp Pulse Resp BP Pulse Ox O2 Del Method 02/11/23 10:02 97.2 F 70 18 141/82 H 98 Room Air Pertinent Lab Results Pertinent Lab Results: Laboratory Tests 11/20/22 11/20/22 14:02 14:02 WBC 6.2 Hgb 13.1 Hct 41.4 Plt Count 206 Sodium 141 Potassium 4.6 D Chloride 110 H Carbon Dioxide 25 BUN 12 Creatinine 0.80 Lab Results 02/11/23 Range/Units 09:18 POC Glucose 98 (60-115) mg/dL Airway Mallampati Class: III TM Dist: >3cm Neck ROM: Full Loose/Missing/Broken Teeth: Yes (Broken tooth bottom right back. Denies loose, missing teeth) Heart: RRR Lungs: CTAB Assessment and Plan Assessment Anesthesia Assessment: Anesthesia Plan Discussed Final Anesthetic Review NPO: Yes ASA Class: III Final Preanesthetic Review: No Changes in Pt Med Stat, Meds/Allgs Chart Reviewed, Consent Obtained/Reviewed and Anes Risks/Benef Reviewed Patient Risk: Intermediate Procedure Risk: Low Assessment/Block/Sedation in SS: Assess/Block/Sedation-SS Anesthetic Plan Anesthetic Plan: MAC: Disposition: Standard PACU
[2023-02-11 09:10] VITALS: BMI 32.4
[2023-02-11 09:15] VITALS: BMI 32.4
[2023-02-11 09:24] LABS: Glucose, Whole Blood 98 mg/dL (60-115)
[2023-02-11] MEDS: Lactated Ringers 1,000 ML 100 ML IVCONT (09:43)
--- NOTE | 2023-02-11 09:51 | MHC.SHP ---
Pre-Procedural Eval Section A Date of Service: 02/11/23 Section B Chief Complaint: Presence of other vascular implants and grafts Details of Present Illness: has an old Port-A-Cath for infusion of Tepezza for her thyroid disease; she now wants this Port-A-Cath removed Relevant Family History (Specify if Yes): No Relevant Social History: None Present Medications: see Short Stay Collaborative assessment Medical History: Significant History ( hypothyroid, diabetes, anxiety, hyperlipidemia, hypertension) Allergies: Allergies Allergy/AdvReac Type Severity Reaction Status Date / Time Seasonal Allergies Allergy Mild Unknown Verified 01/13/23 16:02 Review of Systems Sugical H&P ROS: Negative: Constitution, Cardiovascular, Respiratory, Neurological, Psychiatric, Hem-Onc, Allergic/Immunologic, Gastrointestinal, Genitourinary, Musculoskeletal, Integumentary, Endocrine and Eyes/Ears/Nose/Throat Exam Surgical H&P Exam: Normal: HEENT, Normal: Heart, Normal: Lungs, Normal: Extremities, Normal: Abdomen, Normal: Skin and Normal: Neurological Exam Comment: Port-A-Cath on right chest wall Plan Diagnosis/Plan: Unchanged I have reviewed the history and physical and performed a pertinent physical examination on my patient. No changes have occurred unless specified. Time Spent With Patient Time: Total time managing care of this patient today ____ minutes.
[2023-02-11 10:02] VITALS: BP 141/82; PULSE 70; RESP 18; TEMP 36.2; O2SAT 98
--- NOTE | 2023-02-11 11:00 | P.OP_ITS ---
Operative Note Operative Note Date of Service: 02/11/23 Narrative: Preop diagnosis: Port-A-Cath in place Postop diagnosis: The same Procedure: Removal ofl Port-A-Cath under anesthesia surgeon: Blake Farias MD The patient is a 42-year-old female who was a Port-A-Cath in place for infusion of the Tepezza in the past for her thyroid disease. She now wants the Port-A-Cath removed he has completed treatment. She understood the technique of removal. She was aware of the risks, benefits, and alternatives. She was brought to the operating room. She was placed supine under monitored anesthesia care. The right chest wall and neck were prepped and draped in the usual sterile fashion. A surgical time-out was done. The patient received cefazolin preoperatively. The Port-A-Cath was palpable on the right anterior chest wall superiorly just under the clavicle. The catheter itself seemed to go superiorly into the right IJ. I infiltrated the planned line of incision with lidocaine 1%. I made the incision skin along the previous incision using a blade 15. This was carried down with electrocautery through the full-thickness of the skin subcutaneous fat until the Port-A-Cath was visualized. There was note of for about a capsule surrounding the Port-A-Cath so this was incised. I did sharp dissection to expose the entire Port-A-Cath. There was note of a lot of adhesions at the hub of the Port-A-Cath so we had to gently remove this and free this up with comb ination of Metzenbaum scissors as well as electrocautery. Once the adhesions surrounding the have was freed up, I was able to pull out the entire Port-A-Cath with the catheter without difficulty. Pressure was applied on the right IJ. I irrigated the area of the Port-A-Cath cavity. I reapposed the subcutaneous layer with Dexon 3-0 interrupted sutures. There was note of good hemostasis. Skin closure was achieved with nylon 3-0 simple interrupted sutures. The area was infiltrated with Marcaine 0.5% for postop all MICHELLE. Dressings were applied and the procedure was completed. The patient tolerated procedure well. There were no immediate complications. Initial and final counts of sponges and instruments were correct. Estimated blood loss was about 5 cc. The patient was then transferred to the recovery room with stable vital signs.
[2023-02-11 11:05] VITALS: BP 117/79; PULSE 74; RESP 16; TEMP 36.3; O2SAT 99
[2023-02-11 11:20] VITALS: BP 138/81; PULSE 72; RESP 16; O2SAT 99
[2023-02-11 11:42] VITALS: BP 148/86; PULSE 66; RESP 18; TEMP 36.2; O2SAT 100
== END 2023-02-11 11:58 | disposition home or self-care (01) ==
PROVIDERS: PCP Internal Medicine; Visit Provider Surgery
PROC: (CPT 36590; principal; 2023-02-11 10:20)
DX: Z45.2 Encounter for adjustment and management of vascular access device (principal); Z95.828 Presence of other vascular implants and grafts; E03.9 Hypothyroidism, unspecified; E11.9 Type 2 diabetes mellitus without complications; I10 Essential (primary) hypertension; J30.2 Other seasonal allergic rhinitis; Z79.899 Other long term (current) drug therapy
CPT/HCPCS: 36590; 82947; 88300; J0690; J2250; J2405; J2795; J3010

== ENCOUNTER → 2023-02-24 10:26 | Outpatient (BNVA) | payer OTHER, SELFPAY | PROVIDERS: PCP Internal Medicine; Visit Provider Surgery | DX: Z45.2 Encounter for adjustment and management of vascular access device (principal) | CPT/HCPCS: 99212 ==

== ENCOUNTER 2023-05-07 12:06 | Emergency (ER) | payer OTHER, SELFPAY ==
--- NOTE | ~2023-05-07 | US_ITS ---
EXAMINATION: US VENOUS ULTRASOUND WITH DOPPLER LOWER EXTREMITY, RIGHT CLINICAL INFORMATION: Pain COMPARISON: None available. TECHNIQUE: Ultrasound of the deep veins is performed from the hip to the calf with compression sonography and color and pulse Doppler assessment. Spectral analysis with color-flow imaging is performed. FINDINGS: There is normal venous compression and respiratory variation and augmented flow. The visualized common femoral vein, superficial femoral vein, profunda femoral vein, popliteal vein, and the trifurcation region shows no evidence of deep venous thrombosis. There is no significant popliteal fossa cyst. If the patient's symptoms persist, followup ultrasound in 5 days 7 days might be of value to exclude proximal propagation from a non-visualized calf vein. US/US venous duplex LE RT IMPRESSION: No DVT demonstrated in the right lower extremity.
--- NOTE | 2023-05-07 12:26 | ED_ITS ---
HPI - General Adult General Chief complaint: Extremity Problem Stated complaint: whole r side pain lower back pain Time Seen by Provider: 05/07/23 12:35 History of Present Illness HPI narrative: patient complains of right-sided back pain radiating down the right leg with the worst pain in the right calf area She has had back pain off and on for a while, but it flared up worse today and does radiate to her right foot and calf, there is no loss of sensation no weakness no change to bowel or bladder no incontinence no dysuria, there is no fever no IV drug use No chest pain no shortness of breath no abdominal pain no leg swell Related Data Home Medications Medication Instructions Recorded Confirmed fenofibrate 54 mg tablet 54 mg PO DAILY 02/07/23 03/23/23 omeprazole 20 mg capsule,delayed 20 mg PO DAILY 02/07/23 03/23/23 release Previous Rx's Medication Instructions Recorded blood sugar diagnostic (FreeStyle #50 ea 06/30/21 Test strips) blood-glucose meter (FreeStyle #1 ea 06/30/21 Lite Meter kit) lancets 28 gauge (FreeStyle #100 ea 06/30/21 Lancets) escitalopram oxalate 10 mg tablet 10 mg PO DAILY #90 tabs 10/25/22 levothyroxine 175 mcg tablet 175 mcg PO DAILY 90 days #90 tabs 10/25/22 docusate sodium 100 mg capsule 100 mg PO BEDTIME #90 caps 01/04/23 hydrocortisone 2.5 % topical cream 1 appl MA BID-QID PRN hemorrhoids 01/04/23 with perineal applicator #30 grams (Proctosol HC) metformin 500 mg tablet 500 mg PO BID 90 days #180 tabs 02/17/23 hydrochlorothiazide 25 mg tablet 25 mg PO QAM #90 tabs 03/11/23 gabapentin 100 mg capsule 100 mg PO BEDTIME #14 caps 03/23/23 ibuprofen 600 mg tablet 600 mg PO Q6H PRN pain #30 tabs 03/23/23 acetaminophen 500 mg tablet 1,000 mg PO QID PRN pain #30 tabs 05/07/23 cyclobenzaprine 5 mg tablet 5 mg PO TID PRN muscle spasm #10 05/07/23 tabs ibuprofen 600 mg tablet 600 mg PO Q6H PRN pain #20 tabs 05/07/23 oxycodone 5 mg tablet 5 mg PO Q6H PRN pain #14 tabs 05/07/23 prednisone 20 mg tablet 60 mg PO DAILY 3 days #9 tabs 05/07/23 Allergies Allergy/AdvReac Type Severity Reaction Status Date / Time Seasonal Allergies Allergy Mild Unknown Verified 05/07/23 12:30 [facility] Past Medical History Source: nursing notes reviewed Medical History LAXMI (acute kidney injury) Allergic rhinitis Blurry vision COVID-19 Diabetes mellitus Essential hypertension NAVNEET (generalized anxiety disorder) GERD (gastroesophageal reflux disease) Hemorrhoids with complication Hypothyroid Mixed hyperlipidemia Moderate recurrent major depression Port-A-Cath in place Sleep apnea Surgical History History of appendectomy History of cholecystectomy History of esophagogastroduodenoscopy (EGD) History of eye surgery History of hemorrhoidectomy (~08/24/22) History of hysterectomy History of removal of both ovaries History of surgery History of tonsillectomy History of tubal ligation Hx of colonoscopy Family History Family History Father Diabetes Hypertension Glaucoma Stroke Anxiety Mother Diabetes Hypertension Breast cancer History of mastectomy Depression Family/Other FH: mental illness Social History Social History Household Members Other:: [id number] w/special needs Housing: House Are you a primary care manager to a significant other at home: Yes (mother coming to assist patient post-op @ home) Do you presently have visiting nurse or other home services: No Alcohol intake: current Alcohol intake frequency: holidays/special occasions only Patient Tobacco Use Status: Never used Tobacco e-Cigarette/Vaping Use: Never Used Second Hand Smoke Exposure: No Advance Directives: No Advance Directives Information Provided: No service: No Current occupational status: employed Current occupational exposures/hazards: No Cognitive needs: No Hearing needs: No Vision needs: Yes Physical Exam ED Vital Signs: Vital Signs - 24 hr 05/07/23 12:28 Temperature 97.6 F Pulse Rate 84 Respiratory Rate 16 Blood Pressure 146/94 H Pulse Oximetry 97 Oxygen Delivery Method Room Air BMI result Body Mass Index 31.5 general appearance is no acute distress Head normocephalic atraumatic Neck is supple Respiratory no distress Abdomen soft nontender The back had right lower lumbar paraspinal soft tissue tenderness, skin of the back was normal, no midline tenderness no CVA tenderness no rashes no wounds The extremities full range of motion x4 Skin no rash Neuro no focal motor or sensory deficits, motor is 5/5 x4, sensation is intact and symmetrical in distal lower extremities Course Course Course Narrative: This is an RME: Additional HPI, ROS, PE not included below will be deferred to primary provider. Patient is a 43 year old female who presents to the emergency department for evaluation of lower back pain, right-sided, radiating down to the foot. Associated numbness to the right foot. Denies any precipitating injury. This has been ongoing for a few months, flaring up over the past week, but last night suddenly pain became much more severe. She trialed oxycodone that she received in the past for this pain which did not help. Denies incontinence. Patient responded well to analgesics treatment with relief of pain As she was having calf pain and ultrasound was done which was negative for DVT Patient diagnosis is sciatica and she is discharged with muscle relaxer, prednisone and analgesics After analgesics treatment patient was comfortable enough to ambulate easily from the ER with no neurologic deficits no changes to bowel or bladder Medications Administered Discontinued Medications Generic Name Dose Route Start Last Admin Trade Name Alicia PRN Reason Stop Dose Admin Acetaminophen 975 mg 05/07/23 12:57 05/07/23 13:04 Acetaminophen 325 Mg Tablet PO 05/07/23 12:58 975 mg ONCE ONE Administration Cyclobenzaprine HCl 5 mg 05/07/23 13:00 05/07/23 13:04 Cyclobenzaprine Hcl 5 Mg Tablet PO 05/07/23 13:01 5 mg ONCE ONE Administration Ketorolac Tromethamine 30 mg 05/07/23 12:56 05/07/23 13:01 Ketorolac Tromethamine 30 Mg/Ml Vial IM 05/07/23 12:57 30 mg ONCE ONE Administration Oxycodone HCl 10 mg 05/07/23 13:00 05/07/23 13:04 Oxycodone Hcl Immed Release 5 Mg Tablet PO 05/07/23 13:01 10 mg ONCE ONE Administration Prednisone 60 mg 05/07/23 14:31 06/24/23 14:35 Prednisone 20 Mg Tablet PO 05/07/23 14:32 60 mg ONCE ONE Administration Discharge Plan Discharge Clinical Impression: Sciatica Patient Disposition: Home, Self-Care Additional Instructions: ultrasound was negative no blood clot was seen The pain in the back your leg is likely from pinched nerve shooting pain down your leg Prednisone sometimes reduce is inflammation around the nerve so I wrote for 4 days of prednisone Oxycodone is a narcotic pain reliever NF1 tablet is not helping it is very safe to take a 2nd tablet total 10 mg Muscle relaxer may cause drowsiness so I wrote for the low dose of 5 mg but again if it is helpful and if needed you can take 2 tablets for a total of 10 mg every 8 hours Use Tylenol and ibuprofen as a baseline as they are not sedating not narcotics, but if you need the other medicines it is safe to take them at home Follow with primary doctor Return any time any worse condition or any concerns Prescriptions: New prednisone 20 mg tablet 60 mg PO DAILY 3 Days Qty: 9 0RF acetaminophen 500 mg tablet 1,000 mg PO QID PRN (Reason: pain) Qty: 30 0RF cyclobenzaprine 5 mg tablet 5 mg PO TID PRN (Reason: muscle spasm) Qty: 10 0RF oxycodone 5 mg tablet 5 mg PO Q6H PRN (Reason: pain) Qty: 14 0RF Rx Instructions: Partial Fill upon patient request. ibuprofen 600 mg tablet 600 mg PO Q6H PRN (Reason: pain) Qty: 20 0RF No Action (DME) blood-glucose meter [FreeStyle Lite Meter] Kit See Rx Instructions .Route Qty: 1 0RF Rx Instructions: As directed (DME) FreeStyle Test Strip See Rx Instructions .Route Qty: 50 11RF Rx Instructions: Use 1 test strip once a day (DME) lancets [FreeStyle Lancets] 28 gauge misc See Rx Instructions .Route Qty: 100 11RF Rx Instructions: Use 1 lancet once a day escitalopram oxalate 10 mg tablet 10 mg PO DAILY Qty: 90 1RF levothyroxine 175 mcg tablet 175 mcg PO DAILY 90 Days Qty: 90 0RF metformin 500 mg tablet 500 mg PO BID 90 Days Qty: 180 1RF hydrochlorothiazide 25 mg tablet 25 mg PO QAM Qty: 90 3RF omeprazole 20 mg capsule,delayed release(DR/EC) 20 mg PO DAILY fenofibrate 54 mg tablet 54 mg PO DAILY gabapentin 100 mg capsule 100 mg PO BEDTIME Qty: 14 0RF ibuprofen 600 mg tablet 600 mg PO Q6H PRN (Reason: pain) Qty: 30 0RF docusate sodium 100 mg capsule 100 mg PO BEDTIME Qty: 90 3RF hydrocortisone [Proctosol HC] 2.5 % cream with perineal applicator 1 appl MA BID-QID PRN (Reason: hemorrhoids) Qty: 30 2RF
[2023-05-07 12:28] VITALS: BP 146/94; PULSE 84; RESP 16; TEMP 36.4; O2SAT 97; BMI 31.5
[2023-05-07] MEDS: Ketorolac Tromethamine 30 MG/ML VIAL IM (13:01)
[2023-05-07] MEDS: oxyCODONE HCl Immed Release 5 MG TABLET 10 MG PO (13:04)
[2023-05-07] MEDS: Cyclobenzaprine HCl 5 MG TABLET PO (13:04)
[2023-05-07] MEDS: Acetaminophen 325 MG TABLET 975 MG PO (13:04)
[2023-05-07] MEDS: predniSONE 20 MG TABLET 60 MG PO (14:35)
== END 2023-05-07 14:39 | disposition home or self-care (01) ==
PROVIDERS: Emergency Provider Emergency Medicine; PCP Internal Medicine
DX: M54.41 Lumbago with sciatica, right side (principal); M79.604 Pain in right leg; E11.9 Type 2 diabetes mellitus without complications; I10 Essential (primary) hypertension; E78.5 Hyperlipidemia, unspecified
CPT/HCPCS: 93971; 96372; 99284; J1885

== ENCOUNTER 2023-05-12 13:59 | Outpatient (REF) | payer OTHER, SELFPAY ==
--- NOTE | 2023-05-12 14:01 | EMG_ITS ---
Please see scanned EMG / Nerve Conduction Report. MTDD
== END 2023-05-12 14:00 | disposition home or self-care (01) ==
LOC: HO.NEURO 13:59
PROVIDERS: PCP Nurse Practitioner Family; Visit Provider Nurse Practitioner Family
DX: M79.604 Pain in right leg (principal)
CPT/HCPCS: 95885; 95909

== ENCOUNTER 2023-07-08 15:58 | Outpatient (AMB) | payer OTHER, SELFPAY ==
[2023-07-08 16:12] VITALS: BP 136/88; PULSE 64; O2SAT 98; BMI 35.6
--- NOTE | 2023-07-08 16:12 | A.OFFPC_ITS ---
Vital Signs 07/08/23 16:12 Height 5 ft 7 in Weight 227 lb 4 oz BMI 35.6 BP 136/88 Blood Pressure Location Lt brachial Position Sitting Pulse 64 Pulse Source Pulse Oximeter Pulse Oximetry (%) 98 Oxygen Delivery Method Room Air Intake Visit Reasons: PE Intake Note: Patient is here today for a physical. 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 Patient of Dr. Campa. Medical history significant for GERD, hyperlipidemia, hypothyroid, hypertension, diabetes-diet controlled, obesity. Today we discussed patient's need for mammogram. Normal diabetic eye exam 04/2023. We also discussed patient's need for pneumonia vaccine. History of total hysterectomy, does not receive Pap smears. Patient also has anxiety and depression, reports that she feels like escitalopram 10 mg is not working well for her and therefore she increase dose by herself to 20 mg daily - which seems to helping her more. No shortness of breath or chest pain. [facility] Medical History LAXMI (acute kidney injury) Allergic rhinitis Blurry vision COVID-19 Diabetes mellitus Essential hypertension NAVNEET (generalized anxiety disorder) GERD (gastroesophageal reflux disease) Hemorrhoids with complication Hypothyroid Mixed hyperlipidemia Moderate recurrent major depression Port-A-Cath in place Sleep apnea Surgical History History of appendectomy History of cholecystectomy History of esophagogastroduodenoscopy (EGD) History of eye surgery History of hemorrhoidectomy (~08/24/22) History of hysterectomy History of removal of both ovaries History of surgery History of tonsillectomy History of tubal ligation Hx of colonoscopy Family History Father Diabetes Hypertension Glaucoma Stroke Anxiety Mother Diabetes Hypertension Breast cancer History of mastectomy Depression Family/Other FH: mental illness Social History Household Members Other:: [id number] w/special needs Housing: House Are you a primary before and after school daycare worker to a significant other at home: Yes (mother coming to assist patient post-op @ home) Do you presently have visiting nurse or other home services: No Alcohol intake: current Alcohol intake frequency: holidays/special occasions only Patient Tobacco Use Status: Never used Tobacco e-Cigarette/Vaping Use: Never Used Second Hand Smoke Exposure: No service: No Current occupational status: employed Current occupational exposures/hazards: No Cognitive needs: No Hearing needs: No Vision needs: Yes Questionnaire Thrive Questionnaire Date Thrive assessed: 12/23/22 NAVNEET-7 AMB Questionnaire NAVNEET-7 Date NAVNEET - 7 assessed: 12/23/22 Source: Developed by Drs. Gume Coronado, Lore Han, Julius Dias and colleagues, with an educational kurt from [employer]. Review of Systems Const Denies body aches, Denies chills, Denies fever(s) and Denies headache(s) Eyes Denies change in vision ENT Denies dizziness, Denies otalgia, Denies headache(s), Denies nasal discharge, Denies sinus pain and Denies sore throat Card Denies chest pain, Denies edema, Denies lightheadedness and Denies dyspnea Resp Denies cough, Denies dyspnea and Denies wheezing GI Denies abdominal pain, Denies constipation, Denies diarrhea, Denies nausea and Denies vomiting Denies dysuria Musc Denies myalgias Skin/Breast Denies rash Neuro Denies dizziness and Denies headache(s) Psych Reports anxiety and Reports depression Aller/Immun Denies wheezing Physical exam (Primary Care) Vital Signs: Last Vital Signs Pulse 64 07/08/23 16:12 BP 136/88 07/08/23 16:12 Pulse Ox 98 07/08/23 16:12 Oxygen Delivery Method Room Air 07/08/23 16:12 BMI result Body Mass Index 35.6 Tobacco/Smoking Status: Tobacco use Status Tobacco use date assessed 12/23/22 07/08/23 16:18 Patient Tobacco Use Status Never used Tobacco 07/08/23 16:18 e-Cigarette/Vaping Use Never Used 07/08/23 16:18 Thrive Assessment: Date of Thrive Assessment Date Thrive assessed 12/23/22 07/08/23 16:18 Const General: cooperative and no acute distress Orientation/consciousness: patient oriented x3 HENMT Head: Yes normocephalic and Yes atraumatic Ears: TM's normal bilaterally Face and sinus: Yes sinuses nontender Mouth: oropharynx normal and moist mucous membranes Throat: Yes posterior oropharynx normal Eyes General: appearance normal, both eyes and all related structures Pupils: Equal, round and reactive pupils present EOM: EOMs intact bilaterally Neck Neck: Yes normal visual inspection, Yes full ROM and Yes no lymphadenopathy Thyroid: Thyroid normal Resp Effort & Inspection: normal respiratory effort and able to speak in complete sentences Auscultation: clear to auscultation bilaterally, no crackles, no rales, no rhonchi and no wheezes Cardio Rate: regular rate Rhythm: regular rhythm Heart sounds: S1 normal heart sound present, S2 normal heart sound present and no murmurs GI Palpation (GI): Soft to palpation, not firm, nontender, no guarding, not rigid and no hepatosplenomegaly Auscultation: normal bowel sounds General: No CVA tenderness Back/Spine/Pelvis Back: No CVA tenderness Skin General skin exam: no rashes or lesions noted Neuro General: patient oriented x3 Cranial nerves: Yes Equal, round and reactive pupils present Gait exam (Neuro): Normal gait present Extrem General: Yes full ROM and No edema Immunizations pneumoc 20-shannon conj-dip cr(PF) Performing Provider: MAHESH Moran Administered by: ROBERTA Dietz on 07/08/23 16:50 Dose Route Admin Location Lot Number Expiration Date [facility] Chief Psychologist 0.5 mL IM Left Deltoid [id number] 07/15/24 Phonitive - [employer] VIS Given Date VIS Provided VIS Publication Date 07/08/23 Single Vaccine 21 Eligibility Eligibility Date Funding Source Not [facility] Eligible 07/08/23 Private Assessment and Plan Assessment & Plan (1) Physical exam: Code(s): Z00.00 - Encounter for general adult medical examination without abnormal findings (2) Diabetes mellitus: Comment: dx 2020-glucose usually 105 to 130-last A1C- 5.2% on 12/23/22 Code(s): E11.9 - Type 2 diabetes mellitus without complications Plan: Patient reports A1c 5.1 01/[address] Pradhan Continue low-carbohydrate diet (3) LAXMI (acute kidney injury): Comment: 2012-had ovarian infection post-op w/subsequent exploratory laparotomy-resolved post recovery Code(s): N17.9 - Acute kidney failure, unspecified Plan: Blood work ordered Continue to follow-up with nephrology Dr. Benson manuel (4) NAVNEET (generalized anxiety disorder): Code(s): F41.1 - Generalized anxiety disorder Plan: Increase escitalopram to 20 mg daily (5) Moderate recurrent major depression: Code(s): F33.1 - Major depressive disorder, recurrent, moderate Plan: Same as above (6) Essential hypertension: Code(s): I10 - Essential (primary) hypertension Plan: Goal BP equal or less than 140/90 Not on pharmacological intervention Blood pressure normal today (7) Hypothyroid: Code(s): E03.9 - Hypothyroidism, unspecified Qualifiers: Hypothyroidism type: unspecified Qualified Code(s): E03.9 - Hypothyroidism, unspecified Plan: Continue levothyroxine 175 mcg daily (8) Mixed hyperlipidemia: Code(s): E78.2 - Mixed hyperlipidemia Plan: Continue atorvastatin 20 mg daily Low-cholesterol diet (9) Screening for breast cancer: Code(s): Z12.39 - Encounter for other screening for malignant neoplasm of breast (10) Obesity (BMI 30-39.9): Code(s): E66.9 - Obesity, unspecified Plan: Healthy food choices and exercise as tolerated Orders: Orders MM tomosynthesis screening BI 07/08/23 Z12.31 - Encounter for screening mammogram for malignant neoplasm of breast Vitamin B12 and Folate 07/08/23 E11.9 - Type 2 diabetes mellitus without complications Comprehensive Noble. Panel Fast 07/08/23 E11.9 - Type 2 diabetes mellitus without complications Hemoglobin A1c 07/08/23 E11.9 - Type 2 diabetes mellitus without complications Lipid Panel 07/08/23 E78.2 - Mixed hyperlipidemia TSH reflex Free T4 07/08/23 E03.9 - Hypothyroidism, unspecified Vitamin D 25-OH Total 07/08/23 I10 - Essential (primary) hypertension Microalbumin, Random (w Creat) 07/08/23 E11.9 - Type 2 diabetes mellitus without complications Pneumococcal 20 Immunization 07/08/23 Z23 - Encounter for immunization Medications: New escitalopram oxalate 20 mg PO DAILY 90 tabs 1RF F33.1 - Major depressive disorder, recurrent, moderate, F41.1 - Generalized anxiety disorder Discontinued escitalopram oxalate Discontinued Reason: Doctor's Order 10 mg PO DAILY 90 tabs 1RF Coding Level of Care Code Est Pt Prev Care 40-64y(25808) Diagnoses Physical exam Z00.00 Diabetes mellitus E11.9 LAXMI (acute kidney injury) N17.9 NAVNEET (generalized anxiety disorder) F41.1 Moderate recurrent major depression F33.1 Essential hypertension I10 Hypothyroid E03.9 Hypothyroidism type: unspecified Mixed hyperlipidemia E78.2 Screening for breast cancer Z12.39 Obesity (BMI 30-39.9) E66.9
== END 2023-07-08 16:50 | disposition home or self-care (01) ==
PROVIDERS: PCP Internal Medicine; Visit Provider Nurse Practitioner Family
DX: Z00.00 Encounter for general adult medical examination without abnormal findings (principal); E11.9 Type 2 diabetes mellitus without complications; F33.1 Major depressive disorder, recurrent, moderate; E03.9 Hypothyroidism, unspecified; Z23 Encounter for immunization; N17.9 Acute kidney failure, unspecified; F41.1 Generalized anxiety disorder; I10 Essential (primary) hypertension; E78.2 Mixed hyperlipidemia; Z12.39 Encounter for other screening for malignant neoplasm of breast; E66.9 Obesity, unspecified
CPT/HCPCS: 90471; 90677; 99396

== ENCOUNTER 2024-02-08 14:34 | Outpatient (REF) | payer OTHER, SELFPAY | END 2024-02-08 14:35 | disposition home or self-care (01) | LOC: HO.MAMMO 14:34 | PROVIDERS: PCP Internal Medicine; Visit Provider Internal Medicine | DX: Z12.31 Encounter for screening mammogram for malignant neoplasm of breast (principal) | CPT/HCPCS: 77063; 77067 ==

== ENCOUNTER → 2024-02-08 14:45 | Outpatient (BNV) | payer OTHER, SELFPAY | PROVIDERS: PCP Internal Medicine; Visit Provider Radiology Diagnostic Radiology | DX: Z12.31 Encounter for screening mammogram for malignant neoplasm of breast (principal) | CPT/HCPCS: 77063; 77067 ==

== ENCOUNTER 2024-10-14 19:11 | Emergency (ER) | payer OTHER, SELFPAY ==
--- NOTE | ~2024-10-14 | XR_ITS ---
EXAMINATION: XR CHEST CLINICAL INFORMATION: cough COMPARISON: Chest x-ray December 12, 2022 TECHNIQUE: 2 views of the chest were obtained. FINDINGS: No significant abnormality is noted involving the heart, lungs, mediastinum, bony thorax or soft tissues. Surgical clips in the upper abdomen. XR/XR chest 2V IMPRESSION: Unremarkable examination. Electronically signed by: Faheem Villagomez MD 10/14/2024 08:25 PM EST
[2024-10-14 19:15] VITALS: BP 124/89; PULSE 89; RESP 18; TEMP 36.6; O2SAT 96; BMI 36.8
--- NOTE | 2024-10-14 19:15 | ED.GENADULT ---
HPI - General Adult General Chief complaint: Upper Respiratory Symptoms Stated complaint: flu like symptoms Time Seen by Provider: 10/14/24 21:31 Source: patient Mode of arrival: ambulatory Limitations: no limitations History of Present Illness ED Provider: Dr. Amie Ch HPI narrative: Patient comes to the emergency room complaining of cough, flu-like symptoms, body aches chills for 3 days. Patient states it started after Thanksgiving. Patient denies any nausea vomiting or diarrhea. Related Data Home Medications ?Medication ?Instructions ?Recorded ?Confirmed atorvastatin 20 mg tablet 20 mg PO DAILY 07/08/23 07/08/23 Previous Rx's ?Medication ?Instructions ?Recorded metformin 500 mg tablet 500 mg PO BID 90 days #180 tabs 02/01/24 levothyroxine 175 mcg tablet 175 mcg PO DAILY 90 days #90 tabs 08/05/24 escitalopram oxalate 20 mg tablet 20 mg PO DAILY #90 tabs 08/06/24 benzonatate 100 mg capsule 100 mg PO TID PRN cough #10 caps 10/14/24 fluticasone propionate 50 1 spray intranasal DAILY #16 grams 10/14/24 mcg/actuation nasal spray,suspension (Flonase Allergy Relief) ibuprofen 600 mg tablet 600 mg PO Q8H PRN fever or pain 10/14/24 #20 tabs Allergies Allergy/AdvReac Type Severity Reaction Status Date / Time Seasonal Allergies Allergy Mild Unknown Verified 10/14/24 19:17 Review of Systems Review of Systems: Constitutional : No Weight loss, complaining of subjective fever, chills, fatigue, generalized malaise ENT/Mouth : No Hearing loss, No Ear Pain, complaining of Nasal Congestion, No Sinus Pain, No Hoarseness, No sore throat, No Rhinorrhea, No Swallowing Difficulty Eyes: No Eye Pain, No Swelling, No Redness, No Foreign Body, No Discharge, No Vision Changes Cardiovascular : No Chest Pain, No SOB, No Dyspnea on Exertion, No Orthopnea, No Edema, No Palpitations Respiratory : Complaining of Cough, No Sputum, No Wheezing, No Smoke Exposure, No Dyspnea Gastrointestinal : No Nausea, No Vomiting, No Diarrhea, No Constipation, No abdominal Pain, No Hematochezia, No Melena Genitourinary : no irregular bleeding, No Dysuria, No Urinary Frequency, No Hematuria, No Urinary Incontinence, No Urgency, No Flank Pain, No Urinary Flow Changes, No Hesitancy Musculoskeletal : No joint pain, No Myalgias, No Joint Swelling Skin : No Skin Lesions, No rash Neuro : No Weakness, No Numbness, No Paresthesias, No Loss of Consciousness, No Dizziness, No Headache Psych : No Anxiety/Panic, No Depression, No SI/HI/AH/VH, No Social Issues, Heme/Lymph: No Bruising, No Bleeding,No Lymphadenopathy Endocrine : No Polyuria, No Polydipsia, No Temperature Intolerance [facility] Past Medical History Medical History Sleep apnea Port-A-Cath in place Hemorrhoids with complication COVID-19 LAXMI (acute kidney injury) Diabetes mellitus NAVNEET (generalized anxiety disorder) Moderate recurrent major depression Blurry vision Essential hypertension Allergic rhinitis Hypothyroid Mixed hyperlipidemia GERD (gastroesophageal reflux disease) Surgical History History of appendectomy History of cholecystectomy History of esophagogastroduodenoscopy (EGD) History of eye surgery History of hemorrhoidectomy (~08/24/22) History of hysterectomy History of removal of both ovaries History of surgery History of tonsillectomy History of tubal ligation Hx of colonoscopy Family History Family History Father Diabetes Hypertension Glaucoma Stroke Anxiety Mother Diabetes Hypertension Breast cancer History of mastectomy Depression Family/Other FH: mental illness Social History Social History Household Members Other:: [id number] w/special needs Housing: House Are you a 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 intensive care medicine specialist to a significant other at home: Yes (mother coming to assist patient post-op @ home) Do you presently have visiting nurse or other home services: No Alcohol intake: current Alcohol intake frequency: holidays/special occasions only Comment: medicated with po tylenol and oxycodone Patient Tobacco Use Status: Never used Tobacco e-Cigarette/Vaping Use: Never Used Second Hand Smoke Exposure: No Advance Directives: No Advance Directives Information Provided: Yes service: No Current occupational status: employed Current occupational exposures/hazards: No Cognitive needs: No Hearing needs: No Vision needs: Yes Physical Exam ED Vital Signs: Vital Signs - 24 hr 10/14/24 19:15 10/14/24 21:36 Temperature 97.8 F Pulse Rate 89 79 Respiratory Rate 18 16 Blood Pressure 124/89 127/89 Pulse Oximetry 96 99 Oxygen Delivery Method Room Air Room Air BMI result Body Mass Index 36.8 Const Other: Appearance: Alert. Oriented X3. No acute distress. Well-appearing Eyes: Pupils equal, round and reactive to light. ENT: Pharynx normal. Neck: Normal inspection. Neck supple. No lymph nodes noted. No crepitus CVS: Normal heart rate and rhythm. Pulses normal. Normal S1 and S2 Respiratory: No respiratory distress. Breath sounds normal. No Wheezing. No rales Abdomen: Soft and nontender. No rigidity. No distention. Skin: Skin warm and dry. Normal skin color. Normal skin turgor. Extremities: No lower extremity edema. No Lacerations. No Rash Neuro: Oriented X 3. No motor deficit. No sensory deficit. Moving all extremities. No slurred speech. CN 2 through 12 grossly intact Psych: calm, cooperative, normal affect Course Course Course Narrative: RME performed by Sindhu Chin PA-C. Patient is a 44 year old assigned female at presenting to the emergency department with chills, body aches, and a cough. Detailed physical exam and review of systems are deferred to the chief strategy officer. Imaging and swabs ordered. Patient placed back in the waiting room pending room availability and results. Medical Decision Making Medical Decision Making [facility] Narrative: Chest x-ray does not show any acute abnormality My interpretation of labs, patient tested positive for RSV Discussed with the patient that at this time, antibiotics are not indicated, patient will be sent home with a prescription for symptomatic treatment. Lab Data Labs: Lab Results 10/14/24 Range/Units 19:31 Influenza Type A (PCR) NEGATIVE (Negative) Influenza Type B (PCR) NEGATIVE (Negative) RSV RNA Qual (PCR) POSITIVE A (Negative) SARS-CoV-2 RNA (RT-PCR) NEGATIVE (Negative) S. pyogenes GrpA MARILIA Negative (Negative) Discharge Plan Discharge Clinical Impression: RSV bronchitis Patient Disposition: Home, Self-Care Instructions: Acute Bronchitis (ED) Additional Instructions: Please follow-up with your primary care physician tomorrow. If you have any worsening or new symptoms, please return to the emergency room or call 911 Prescriptions: New benzonatate 100 mg capsule 100 mg PO TID PRN (Reason: cough) Qty: 10 0RF fluticasone propionate [Flonase Allergy Relief] 50 mcg/actuation spray,suspension 1 spray intranasal DAILY Qty: 16 0RF Rx Instructions: administer into each nostril ibuprofen 600 mg tablet 600 mg PO Q8H PRN (Reason: fever or pain) Qty: 20 0RF No Action metformin 500 mg tablet 500 mg PO BID 90 Days Qty: 180 1RF levothyroxine 175 mcg tablet 175 mcg PO DAILY 90 Days Qty: 90 1RF escitalopram oxalate 20 mg tablet 20 mg PO DAILY Qty: 90 0RF atorvastatin 20 mg tablet 20 mg PO DAILY Stand Alone Forms: Work/School Release Print Language: Burundian
[2024-10-14 19:46] LABS: IDNOW Serial# 08D9AD1C; Strep A Nucleic Acid Negative (Negative)
[2024-10-14 20:14] LABS: Influenza A PCR NEGATIVE (Negative); Influenza B PCR NEGATIVE (Negative); Resp Syncy Virus RNA Qual PCR POSITIVE (Negative); SARS COV2 PCR INHOUSE NEGATIVE (Negative)
[2024-10-14 21:36] VITALS: BP 127/89; PULSE 79; RESP 16; O2SAT 99
[2024-10-14 22:02] VITALS: BP 126/86; PULSE 75; RESP 16; TEMP 36.8; O2SAT 99
[2024-10-14 22:17] VITALS: BP 126/86; PULSE 75; RESP 16; TEMP 36.8; O2SAT 99
== END 2024-10-14 22:19 | disposition home or self-care (01) ==
PROVIDERS: Physician Assistant Medical; Emergency Provider Emergency Medicine; PCP Internal Medicine
DX: J20.5 Acute bronchitis due to respiratory syncytial virus (principal); R05.9 Cough, unspecified; M79.10 Myalgia, unspecified site; Z79.899 Other long term (current) drug therapy; Z03.818 Encounter for observation for suspected exposure to other biological agents ruled out
CPT/HCPCS: 0241U; 71046; 87651; 99283

== ENCOUNTER 2024-10-31 12:37 | Outpatient (AMB) | payer OTHER, SELFPAY ==
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
[2024-10-31 12:43] VITALS: BP 122/80; BMI 37.0
== END 2024-10-31 13:18 | disposition home or self-care (01) ==
PROVIDERS: PCP Internal Medicine; Visit Provider Internal Medicine
DX: Z00.00 Encounter for general adult medical examination without abnormal findings (principal); E11.9 Type 2 diabetes mellitus without complications; F33.1 Major depressive disorder, recurrent, moderate; R20.2 Paresthesia of skin; G43.909 Migraine, unspecified, not intractable, without status migrainosus; L98.9 Disorder of the skin and subcutaneous tissue, unspecified; Z68.37 Body mass index [BMI] 37.0-37.9, adult; E66.9 Obesity, unspecified; E03.9 Hypothyroidism, unspecified; Z23 Encounter for immunization

== ENCOUNTER 2024-10-31 12:37 | Outpatient (REF) | payer OTHER, SELFPAY ==
[2024-10-31 13:44] LABS: MANUAL DIFF FLAG NO
[2024-10-31 14:20] LABS: Basophils Percent Auto 0.7 % (0-2); Eosinophils Absolute Auto 0.1 X10*3/uL (0.0-0.4); Eosinophils Percent Auto 2.3 % (0-4); Hematocrit 40.5 % (37.0-47.0); Hemoglobin 12.9 g/dl (12.0-16.0); Imm Gran Abs Auto 0.01 X10*3/uL (0.00-0.03); Imm Gran Pct Auto 0.2 % (0.0-0.4); Lymphocytes Absolute Auto 1.8 X10*3/uL (1.2-4.9); Mean Corpuscular HGB Conc 31.9 g/dl (31.0-35.0); Mean Corpuscular Hemoglobin 26.8 pg (27.0-33.0); Mean Corpuscular Volume 84.2 fL (80.0-98.0); Monocytes Absolute Auto 0.4 X10*3/uL (0.1-1.2); Monocytes Percent Auto 7.2 % (2-11); Neutrophils Absolute Auto 3.3 x10*3/uL (2.0-8.3); Neutrophils Percent Auto 58.6 % (45-73); Platelet Count 222 X10*3/uL (160-400); Red Blood Count 4.81 X10*6/uL (4.20-5.50); Red Cell Distribution Width 13.9 % (11.0-16.0); White Blood Count 5.7 X10*3/uL (4.8-10.8)
[2024-10-31 14:56] LABS: Alanine Aminotransferase 19 U/L (0-31); Alkaline Phosphatase 58 U/L (39-117); Anion Gap 8 (12-20); Aspartate Amino Transferase 19 U/L (5-31); Bilirubin Total 0.5 mg/dL (0.0-1.0); Blood Urea Nitrogen 19 mg/dL (9-16); Calcium 8.5 mg/dL (8.4-10.2); Carbon Dioxide 28 mmol/L (22-29); Chloride 110 mmol/L (96-108); Cholesterol 205 mg/dL (<200); Estimated Glomerular Filt Rate > 60; Glucose Random 83 mg/dL (60-115); HDL Cholesterol 40 mg/dL (>40); LDL Cholesterol Calculated 132 mg/dL (<100); Potassium 4.3 mmol/L (3.3-5.1); Sodium 142 mmol/L (135-145); Triglycerides 169 mg/dL (<150)
[2024-10-31 15:13] LABS: Thyroid Stimulating Hormone 0.44 uIU/mL (0.32-4.0); Vitamin D 25-OH Total 23.3 ng/mL (>30)
[2024-10-31 15:31] LABS: Folate 12.4 ng/mL (> or = 4.0); Vitamin B12 418 pg/mL (200-900)
== END 2024-10-31 12:38 | disposition home or self-care (01) ==
LOC: HO.LAB 12:37
PROVIDERS: PCP Internal Medicine; Visit Provider Internal Medicine
DX: Z00.01 Encounter for general adult medical examination with abnormal findings (principal); R20.2 Paresthesia of skin; G43.909 Migraine, unspecified, not intractable, without status migrainosus; L98.9 Disorder of the skin and subcutaneous tissue, unspecified; E66.9 Obesity, unspecified; E11.9 Type 2 diabetes mellitus without complications; F33.1 Major depressive disorder, recurrent, moderate; E03.9 Hypothyroidism, unspecified; E78.5 Hyperlipidemia, unspecified; R80.9 Proteinuria, unspecified; E53.8 Deficiency of other specified B group vitamins; E55.9 Vitamin D deficiency, unspecified
CPT/HCPCS: 36415; 80053; 80061; 82043; 82306; 82570; 82607; 82746; 83036; 84443; 85025; 96127; 99212; 99396

== ENCOUNTER 2024-11-16 08:32 | Outpatient (AMB) | payer OTHER, SELFPAY ==
[2024-11-16 08:42] VITALS: BP 142/98; PULSE 73; O2SAT 98; BMI 37.4
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
== END 2024-11-16 10:18 | disposition home or self-care (01) ==
PROVIDERS: Absent Provider Nurse Practitioner Family; PCP Internal Medicine; Visit Provider Nurse Practitioner Family
DX: M79.604 Pain in right leg (principal); R20.0 Anesthesia of skin; R20.2 Paresthesia of skin; G47.30 Sleep apnea, unspecified
CPT/HCPCS: 99204

== ENCOUNTER → 2024-11-16 08:32 | Outpatient (BNVA) | payer OTHER, SELFPAY | PROVIDERS: Absent Provider Nurse Practitioner Family; PCP Internal Medicine; Visit Provider Nurse Practitioner Family | DX: R20.0 Anesthesia of skin (principal); R20.2 Paresthesia of skin; G47.30 Sleep apnea, unspecified; M79.604 Pain in right leg | CPT/HCPCS: 99202 ==

== ENCOUNTER 2024-12-20 08:58 | Outpatient (REF) | payer OTHER, SELFPAY ==
--- NOTE | ~2024-12-20 | XR_ITS ---
EXAMINATION: XR LUMBOSACRAL SPINE CLINICAL INFORMATION: M54.50 - Low back pain, unspecified COMPARISON: July 25, 2020. TECHNIQUE: 6 views of the lumbar spine, inclusive of flexion and extension views, were obtained. FINDINGS: Endplate sclerosis decreased intervertebral disc height at L5-S1. Questionable 2 mm retrolisthesis L5-S1. Mild marginal osteophyte formation at L3-4 and L4-5. No acute cortical disruption. No lytic or blastic lesions. No gross spondylolysis pars interarticulares. Vascular clips right upper quadrant abdomen and likely prior laparoscopic cholecystectomy. XR/XR lumbar spine 6V w bending IMPRESSION: Spondylosis L5-S1 without acute fracture or spondylolysis pars interarticulares. Questionable grade 1 retrolisthesis, L5-S1.. Electronically signed by: Juan Miguel Jacobo MD 12/20/2024 11:44 AM DIOMEDES SOUZA
--- OUTSIDE RECORDS SUMMARY | 2024-12-20 09:11 | XMS_ITS | Encounter Summary ---
Author Organization [facility] Address [address] [place] [id number] Care Team Providers Care Electrical Tryout Person Name Role Phone System, Provider Not In Primary Care Provider Un available Alesia James MD Primary Care Provider [phone] Encounter Details Date Type Department Care Team (Latest Contact Info) Description 10/15/2020 Lab Requisition [facility] [address] Through [address] [place] [address] [address] [place] [address] Ranjit Weiner PA-C [address] [place] [address] Encounter for laboratory testing for COVID-19 virus Social History Tobacco Use Types Packs/Day Years Used Date Smoking Tobacco: Never Assessed Sex and Gender Information Value Date Recorded Sex Assigned at Not on file Gender Identity Not on file Sexual Orientation Not on file COVID-19 Exposure Response Date Recorded In the last month, have you been in contact with someone who was confirmed or suspected to have Coronavirus / COVID-19? Unable to assess 10/14/2020 3:26 PM EST documented as of this encounter Plan of Treatment Not on file documented as of this encounter Procedures Procedure Name Priority Date/Time Associated Diagnosis Comments COVID-19 RT-PCR ([facility]) Routine 10/15/2020 2:37 PM EST Encounter for laboratory testing for COVID-19 virus [ICD-10-CM] documented in this encounter Results * COVID-19 RT-PCR ([facility]) (10/15/2020 2:37 PM EST) COVID-19 RT-PCR SARS-COV-2 NOT DETECTED Not Detected 10/16/2020 12:14 PM [facility] Comment: ADDITIONAL INFORMATION The FRED COVID-19 RT-PCR Assay is Real-Time Reverse Estate Manager Polymerase Chain Reaction (library circulation clerk-PCR) for the in vitro qualitative detection of three SARS-Cov-2 target sequences unique to the coronavirus disease 2019 (COVID-19). This is an Emergency Use Authorization (EUA) in vitro diagnostic (IVD) test that has been modified to include the Booyah automated liquid handler. Its analytical performance characteristics have been determined by the admissions director and verified by [facility] in a manner consistent with CLIA requirements. This test may be used for clinical purposes and should not be regarded as purely investigational or for research use only. This laboratory is certified under the Clinical Laboratory Improvement Amendments of 1988 (CLIA) as qualified to perform high complexity clinical testing. Reference interval for this testing is SARS-CoV-2 Not Detected. Fact sheets for this Emergency Use Authorization assay can be found at the following links: For Healthcare Providers: https://www.fda.gov/media/846024/download For Patients: https://www.fda.gov/media/648120/download TEST LIMITATIONS Positive results are indicative of the presence of SARS-CoV-2 RNA; clinical correlation with patient history and other diagnostic information is necessary to determine patient infection status. Positive results do not rule out bacterial infection or co-infection with other viruses. The agent detected may not be the definite cause of disease. Negative results do not exclude SARS-CoV-2 infection and should not be used as the sole basis for patient management decisions. Negative results must be combined with clinical observations, patient history, and epidemiological information. Improper sample collection, transport or storage may impede the ability of the assay to detect target sequences. Inconclusive specimens are not repeated, and recollection and submission of a new sample is recommended. The performance of the TaqPath COVID-19 Combo Kit was established using nasopharyngeal swab, nasopharyngeal aspirate, and bronchoalveolar lavage (BAL) specimens. The limit of detection for the assay was determined to be 0.75copies/uL in the specimens of nasopharyngeal swab. Other specimen types may be need for further validation before testing on this system. For further details refer to the SmartMenuCard TaqPath COVID-19 Combo Kit EUA submission (https://www.Realie.gov/media/343383/download). ----- Test performed by [facility], [address] [place] [address] CLIA# [id number] ? Guillaume Rodgers M.D., Ph.D., [facility], Clinical Pork Cutlet Maker Microbiology Nasopharyngeal swab / Unknown 10/15/2020 2:37 PM EST 10/15/2020 2:37 PM EST Narrative [facility] - 10/16/2020 12:14 PM EST Performed at [facility], [address] [place] [address], [place] Lic 0695, CLIA [id number] Ranjit Weiner PA-C MICROBIOLOGY - NERAL ORDERABLES [address] [address] documented in this encounter Visit Diagnoses Diagnosis Encounter for laboratory testing for COVID-19 virus documented in this encounter Care Teams Electrical Tryout Person Relationship Specialty Start Date End Date System, Provider Not In PCP - General 10/22/20 Alesia James MD [address] [place] [address] PCP - General 10/21/20 documented as of this encounter
--- OUTSIDE RECORDS SUMMARY | 2024-12-20 09:11 | XMS_ITS | Clinical Summary ---
Author Organization [facility] Address [address] [place] [address] [address] [place] [address] Phone Care Team Providers Care Onion Tier Name Role Phone Alesia James MD Primary Care Provider [phone] Allergies No known active allergies Medications omeprazole (PriLOSEC) [address] capsule Take 20 mg by mouth daily Active atorvastatin (LIPITOR) 20 MG tablet Take 20 mg by mouth daily Active fenofibrate (TRICOR) 54 MG tablet Take 54 mg by mouth daily Active hydroCHLOROthiaz quita (MICROZIDE) 12.5 MG capsule Take 25 mg by mouth daily Active levothyroxine (SYNTHROID, LEVOTHROID) 200 MCG tablet Take 200 mcg by mouth daily Active escitalopram (LEXAPRO) 10 MG tablet Take 10 mg by mouth 1 (one) time each day 06/29/2021 Active metFORMIN (GLUCOPHAGE) 500 MG tablet Take 2,000 mg by mouth 06/30/2021 Active insulin degludec (TRESIBA FLEX TOUCH) 100 UNIT/ML injection Inject 30 Units under the skin daily 08/19/2021 Active D3 Super Strength 50 MCG (1999 UT) capsule TAKE 1 TABLET BY MOUTH 1 TIME EACH DAY. 30 capsule 11 05/11/2023 Active Active Problems Problem Noted Date Diagnosed Date Chronic kidney disease, stage 2 (mild) 2 Diabetes mellitus, not otherwise specified 08/19 Overview (02/24/2022): Last Assessment & Plan: Uncontrolled. Hemoglobin A1c is 11.1% I will increase the Metformin to 500 mg 2 tablets twice a day. Unfortunately she cannot use GLP-1 agonist because she has history of pancreatitis at the age of 15. At this point I will prescribe long- acting insulin. I informed the patient that she may not require this for long-term. But I am not certain. Hopefully her glucose levels will improve and maybe I can switch her over to oral antidiabetic medications. I will prescribe Tresiba 30 units daily. She will follow in 2 months time. I advised her to monitor glucose levels always a fasting and a second alternating between lunch, dinner, and bedtime. But I really only need her to check twice a day 2 weeks prior to the follow-up visit. She should bring in her meter. I [place] Tresiba U[address] [id number] expiration 09/2022 Localized edema 08/18/2021 Acute tubular necrosis 08/18/2021 Acute nontraumatic kidney injury 07/14/2021 Hypertension 07/14/2021 Gastroesophageal reflux disease 07/14/2021 Hypothyroidism, not otherwise specified 07/14/20 21 Mixed hyperlipidemia 07/14/2021 Resolved Problems Problem Noted Date Diagnosed Date Resolved Date Type 1 diabetes mellitus wit h other diabetic kidney complication 07/15/2021 03/07/2023 Allergic rhinitis 07/14/2021 07/15/2021 Blurring of visual image 07/14/202111/2020 Generalized anxiety disorder 07/14/2021 07/15/2021 Moderate recurrent major depression 07/14/2021 07/15/2021 Family History Medical History Relation Comments Anxiety disorder Father Diabetes Father Glaucoma Father Hypertension Father Stroke Father Cancer Mother Breast Cancer Depression Mother Diabetes Mother Hypertension Mother Mastectomy Mother Relation Status Comments Father Mother Social History Tobacco Use Types Packs/Day Years Used Date Smoking Tobacco: Never Smokeless Tobacco: Never Alcohol Use Standard Drinks/Week Comments Never 0 (1 standard drink = 0.6 oz pur e alcohol) Comments Unknown Sex and Gender Information Value Date Recorded Sex Assigned at Not on file Legal Sex Female 5:24 PM EST Gender Identity Not on file Sexual Orientation Not on file Last Filed Vital Signs Vital Sign Reading Time Taken Comments Blood Pressure 134/90 03/07/2023 7:59 AM EDT Pulse 78 03/07/2023 7:59 AM EDT Temperature - - Respiratory Rate - - Oxygen Saturation 99% 03/07/2023 7:59 AM EDT Inhaled Oxygen Concentration - - Weight 93.7 kg (206 lb 9.6 oz) 03/07/2023 7:59 A M EDT Height 167.6 cm (5' 6 ) 03/07/2023 7:59 AM EDT Body Mass Index 33.35 03/07/2023 7:59 AM EDT Plan of Treatment Health Maintenance Due Date Last Done Comments Pneumococcal Vaccine: Pediat rics (0 to 5 Years) and At-Risk Patients (6 to 64 Years) (1 of 2 - PCV) 1986 Hepatitis B Vaccine (1 of 3 - 19+ 3-dose series) 04/02 Diabetes: Hemoglobin A1C 07/15/2021 Diabetes: Ophthalmology Exam 07/15/2021 Diabetes: Pedal Pulse Checked 07/15/2021 Diabetes: Sensory Foot Exam 07/15/2021 Diabetes: Visual Foot Exam 07/15/2021 Influenza Vaccine (#1) 2024 Insurance Care Teams Onion Tier Relationship Specialty Start Date End Date Alesia James MD [address] [place], [place] PCP - General Internal Medicine 07/01/21
--- OUTSIDE RECORDS SUMMARY | 2024-12-20 09:11 | XMS_ITS | Encounter Summary ---
Author Organization [facility] Address [address] [place] [address] Phone Care Team Providers Care Continuous Still Operator Name Role Phone Alesia James MD Primary Care Provider [phone] Reason for Visit * Reason Comments Med Refill Encounter Details Date Type Department Care Team (Late st Contact Info) Description 05/21/2024 Refill [facility] [address] [place] [address] Eleno Knowles MD [address] [facility] [address] [place] [address] Social History Tobacco Use Types Packs/Day Years Used Date Smoking Tobacco: Never Smokeless Tobacco: Never Alcohol Use Standard Drinks/Week Comments Never 0 (1 standard drink = 0.6 oz pur e alcohol) Comments Unknown Sex and Gender Information Value Date Recorded Sex Assigned at Not on file Legal Sex Female 5:24 PM EST Gender Identity Not on file Sexual Orientation Not on file documented as of this encounter Plan of Treatment Not on file documented as of this encounter Visit Diagnoses Not on filedocumented in this encounter Care Teams Continuous Still Operator Relationship Specialty Start Date End Date Alesia James MD [address] [place], [place] PCP - General Internal Medicine 07/01/21 documented as of this encounter
--- OUTSIDE RECORDS SUMMARY | 2024-12-20 09:11 | XMS_ITS | Clinical Summary ---
Author Organization [facility] Address [address] [place] [address] Care Team Providers Care Appliance Assembler Name Role Phone System, Provider Not In Primary Care Provider Un available Allergies No known active allergies Medications Medication Sig Dispensed Refills Start Date End Date Status fenofibrate (LOFIBRA) 54 MG tablet Take 54 mg by mouth daily. Active levothyroxine (SYNTHROID, LEVOTHROID) 200 MCG tablet Take 200 mcg by mouth daily on an empty stomach. Active atorvastatin (LIPITOR) 20 MG tablet Take 20 mg by mouth daily. Active OMEprazole (PriLOSEC) 20 MG capsule Take 20 mg by mouth every morning before breakfast. Active hydrochlorothiazide (MICROZIDE) 12.5 MG capsule Take 25 mg by mouth daily. Active Social History Tobacco Use Types Packs/Day Years Used Date Smoking Tobacco: Never Assessed Sex and Gender Information Value Date Recorded Sex Assigned at Not on file Gender Identity Not on file Sexual Orientation Not on file Last Filed Vital Signs Vital Sign Reading Time Taken Comments Blood Pressure 147/72 10/22/2020 11:35 AM EST Pulse 78 10/22/2020 11:35 AM EST Temperature 36.4 ??C (97.5 ??F) 10/22/2020 8:02 AM ES T Respiratory Rate 20 10/22/2020 11:35 AM EST Oxygen Saturation 98% 10/22/2020 11:20 AM EST Inhaled Oxygen Concentration - - Weight 122 kg (268 lb) 10/22/2020 8:02 AM EST Height 170.2 cm (5' 7 ) 10/22/2020 8:02 AM EST Body Mass Index 41.97 10/22/2020 8:02 AM EST Plan of Treatment Health Maintenance Due Date Last Done Comments Hepatitis C Virus Screening 1979 HIV Screening 1992 DTaP/Tdap/Td Vaccines (1 - Tdap) 1998 Hepatitis B Vaccines (1 of 3 - 19+ 3-dose series) 1998 Pap Smear (Ages 21-65) 2000 Colonoscopy 2024 Influenza Vaccine 06/14/2024 COVID-19 Vaccine (1 - 2023-2 5 season) 2024 HPV Vaccines Aged Out No longer eligi ble based on patient's age to complete this topic Pneumococcal Vaccine: Pediat sahra (0-5 Years) and At-Risk Patients (6 to 49 Years) Aged Out No longer eligible b ased on patient's age to complete this topic Medical Devices Implanted Type Area Application Technician Device Identifier Shelf Expiration Date Model / Serial / Lot [id number] Port Implantable Infusion Vaccess Ct 6fr Power Injectable - [id number] Implanted:Qty: 1 on 10/22/2020 by Bandar Miller MD at [facility] Access Port [employer] - [id number] 03/13/2022 [id number] / [id number] Care Teams Appliance Assembler Relationship Specialty Start Date End Date System, Provider Not In PCP - General 10/22/20
[2024-12-20 09:56] LABS: Iron 71 mcg/dL (30-160); Percent Iron Saturation 28 % (15-50); Total Iron Binding Capacity 254 mcg/dL (228-428); Unsaturated Iron Binding 183 ug/dL
[2024-12-20 10:14] LABS: Ferritin 173 ng/mL (10-250)
[2024-12-21 18:13] LABS: Homocysteine 7.4 umol/L (<10.4)
[2024-12-25 09:03] LABS: Methylmalonic Acid 126 nmol/L (55-335)
[2024-12-27 16:07] LABS: Vitamin B6 7.3 ng/mL (2.1-21.7)
== END 2024-12-20 08:59 | disposition home or self-care (01) ==
LOC: HO.XRAY 08:58
PROVIDERS: PCP Internal Medicine; Visit Provider Nurse Practitioner Family
DX: D64.9 Anemia, unspecified (principal); R20.2 Paresthesia of skin; E66.9 Obesity, unspecified; M54.50 Low back pain, unspecified; M79.604 Pain in right leg
CPT/HCPCS: 36415; 72114; 82728; 83090; 83540; 83921; 84207

== ENCOUNTER → 2024-12-20 09:18 | Outpatient (BNV) | payer OTHER, SELFPAY | PROVIDERS: PCP Internal Medicine; Visit Provider Radiology Diagnostic Radiology | DX: M47.817 Spondylosis without myelopathy or radiculopathy, lumbosacral region (principal) | CPT/HCPCS: 72114 ==

== ENCOUNTER → 2024-12-26 15:07 | Outpatient (BNVA) | payer OTHER, SELFPAY | PROVIDERS: PCP Internal Medicine; Visit Provider Physician Assistant Surgical ==

== ENCOUNTER 2025-01-11 07:57 | Outpatient (AMB) | payer OTHER, SELFPAY ==
--- OUTSIDE RECORDS SUMMARY | 2025-01-11 08:00 | XMS_ITS | Encounter Summary ---
Author Organization [facility] Address [address] [place] [address] Phone Care Team Providers Care Director Ship Name Role Phone Alesia James MD Primary Care Provider [phone] Reason for Visit * Reason Comments Med Refill Encounter Details Date Type Department Care Team (Late st Contact Info) Description 05/21/2024 Refill [facility] [address] [place] [address] Eleno Knowles MD [address] [facility] [address] [place] [address] Social History Tobacco Use Types [...] on filedocumented in this encounter Care Teams Director Ship Relationship Specialty Start Date End Date Alesia James MD [address] [place], [place] PCP - General Internal Medicine 07/01/21 documented as of this encounter
--- OUTSIDE RECORDS SUMMARY | 2025-01-11 08:01 | XMS_ITS | Encounter Summary ---
Author Organization [facility] Address [address] [place] [address] Care Team Providers Care Cone Sewer Name Role Phone System, Provider Not In Primary Care Provider Un available Alesia James MD Primary Care Provider [phone] Encounter Details Date Type Department Care Team (Latest Contact Info) Description 10/15/2020 Lab Requisition [facility] [address] Through [address] [place] [address] [address] [place] [address] Ranjit Weiner PA-C [address] [place] [address] Encounter for laboratory testing for COVID-19 virus [...] NOT DETECTED Not Detected 10/16/2020 12:14 PM [facility] Comment: ADDITIONAL INFORMATION The FRED COVID-19 RT-PCR Assay is Real-Time Reverse Grounds Foreman Polymerase Chain Reaction (review assistant-PCR) for the in vitro qualitative detection of three SARS-Cov-2 target sequences unique to the coronavirus disease 2019 (COVID-19). This is an Emergency Use Authorization (EUA) in vitro diagnostic (IVD) test that has been modified to include the Apperian automated liquid handler. Its analytical performance characteristics have been determined by the contact lens lathe operator and verified by [facility] in a manner consistent with CLIA [...] at the following links: For Healthcare Providers: https://www.fda.gov/media/701503/download For Patients: https://www.fda.gov/media/638684/download TEST LIMITATIONS Positive results are indicative of [...] system. For further details refer to the SolAeroMed TaqPath COVID-19 Combo Kit EUA submission (https://www.Ze-gen.gov/media/672787/download). ----- Test performed by [facility], [address] [place] [address] CLIA# [id number] ?[id number] ? Guillaume Rodgers M.D., Ph.D., [facility], Clinical Heel Pricker Microbiology Nasopharyngeal swab / Unknown 10/15/2020 2:37 PM EST 10/15/2020 2:37 PM EST Narrative [facility] - 10/16/2020 12:14 PM EST Performed at [facility], [address] [place] [address], [place] Lic 0695, CLIA [id number] Ranjit Weiner PA-C MICROBIOLOGY - NERAL ORDERABLES [address] [address] documented in this encounter Visit Diagnoses Diagnosis Encounter for laboratory testing for COVID-19 virus documented in this encounter Care Teams Cone Sewer Relationship Specialty Start Date End Date System, Provider Not In PCP - General 10/22/20 Alesia James MD [address] [place] [address] PCP - General 10/21/20 documented as of this encounter
--- OUTSIDE RECORDS SUMMARY | 2025-01-11 08:01 | XMS_ITS | Clinical Summary ---
Author Organization [facility] Address [address] [place] [address] [address] [place] [address] Phone Care Team Providers Care Blower Installer Name Role Phone Alesia James MD Primary Care Provider [phone] Allergies No known active allergies Medications omeprazole [...] [place] U[address] [id number] expiration 09/2022 Localized edema 08/18/2021 Acute tubular [...] Influenza Vaccine (#1) 2024 Insurance Care Teams Blower Installer Relationship Specialty Start Date End Date Alesia James MD [address] [place], [place] PCP - General Internal Medicine 07/01/21
--- OUTSIDE RECORDS SUMMARY | 2025-01-11 08:01 | XMS_ITS | Clinical Summary ---
Author Organization [facility] [place] [facility] Address [address] [place] [address] Care Team Providers Care Strainer Cleaner Name Role Phone System, Provider Not In [...] this topic Medical Devices Implanted Type Area Registered Art Therapist Device Identifier Shelf Expiration Date Model / Serial / Lot [id number] Port Implantable Infusion Vaccess Ct 6fr Power Injectable - [id number] Implanted:Qty: 1 on 10/22/2020 by Bandar Miller MD at [facility] Access Port [employer] - [id number] 03/13/2022 [id number] / [id number] Care Teams Strainer Cleaner Relationship Specialty Start Date End Date System, Provider Not In PCP - General 10/22/20
[2025-01-11 08:15] VITALS: BP 132/74; PULSE 83; TEMP 36.4; O2SAT 98; BMI 36.6
--- NOTE | 2025-01-11 08:15 | A.OFFVIS_ITS ---
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 BMI 36.9 Allergies Seasonal Allergies Allergy (Mild, Verified 01/11/25 08:15) Unknown Medication List - Last Reconciled 01/11/25 by Davy Pillai MD amitriptyline 50 mg (2 x 25 mg) PO BEDTIME 90 days cyclobenzaprine 5 - 10 mg (1 - 2 x 5 mg) PO BID PRN 30 days diclofenac sodium 1% (Arthritis Pain (diclofenac)) 2 grams topical QID PRN 2 we eks escitalopram oxalate 20 mg PO DAILY 90 days fluticasone propionate 50 mcg/actuation (Flonase Allergy Relief) 1 spray intranasal DAILY levothyroxine 175 mcg PO DAILY 90 days sumatriptan succinate 50 - 100 mg orally at onset of headache, may repeat in 2 hrs PRN; max 2 tabs per day or 4 tabs/week (may take with Ibuprofen) 30 days HPI Comments Details: Previous weight loss efforts: Self diets (80lbs herself but regained) Wakes up: 6am, Sleeps: 10pm Breakfast: 8-9am brunch on weekends (eggs, sausage, bread) Lunch: 12pm (sandwich) Dinner: 5-6pm (chicken, rice, beans) Snacks: 10am (crackers, banana), occ after dinner (fruit salad) Exercise: Has a home elliptical and treadmill Fluids: Coffee: none, tea: none, soda: Coke Zero, juice: 1/month, ETOH: 1/month PFS Medical History (Updated 01/11/25 @ 08:22 by Davy Pillai MD) BMI 36.0-36.9,adult Obesity Anemia Sleep apnea Port-A-Cath in place Hemorrhoids with complication COVID-19 LAXMI (acute kidney injury) Diabetes mellitus NAVNEET (generalized anxiety disorder) Moderate recurrent major depression Blurry vision Essential hypertension Allergic rhinitis Hypothyroid Mixed hyperlipidemia GERD (gastroesophageal reflux disease) Surgical History History of hemorrhoidectomy (~08/24/22) Hx of colonoscopy History of esophagogastroduodenoscopy (EGD) History of surgery History of eye surgery History of removal of both ovaries History of hysterectomy History of cholecystectomy History of tonsillectomy History of tubal ligation History of appendectomy Family History Father Diabetes Hypertension Glaucoma Stroke Anxiety Mother Diabetes Hypertension Breast cancer History of mastectomy Depression Family/Other FH: mental illness Social History (Updated 12/26/24 @ 15:19 by Octavia Palmer CMA) Household Members Other:: [id number] w/special needs Housing: House Are you a primary care specialist to a significant other at home: Yes (mother coming to assist patient post-op @ home) Do you presently have visiting nurse or other home services: No Alcohol intake: current Alcohol intake frequency: holidays/special occasions only Comment: medicated with po tylenol and oxycodone Patient Tobacco Use Status: Never used Tobacco e-Cigarette/Vaping Use: Never Used Second Hand Smoke Exposure: No service: No Current occupational status: employed Current occupational exposures/hazards: No Cognitive needs: No Hearing needs: No Vision needs: Yes Physical Exam Vital Signs: Last Vital Signs Temp 97.6 F 01/11/25 08:15 Pulse 83 01/11/25 08:15 BP 132/74 01/11/25 08:15 Pulse Ox 98 01/11/25 08:15 BMI result Body Mass Index 36.6 GI Inspection: Yes normal to inspection (mixed body habitus), Yes incision (well healed) and Yes obesity Palpation (GI): Soft to palpation Extrem Right lower extremity: normal to inspection Left lower extremity: normal to inspection Quality Reporting (2019) Adult ([facility] 138/01/05/69) Smoking risk assessment performed?: Yes Patient Tobacco Use Status: Never used Tobacco Assessment & Plan Assessment & Plan (1) Obesity (BMI 30-39.9): Code(s): E66.9 - Obesity, unspecified Category: Medical Plan: 1.? Plan for lap sleeve gastrectomy. If diaphragmatic or ventral hernias are present at time of surgery, these will be repaired laparoscopically as well. I emphasized the importance of close follow-up, adherence to instructions and good communication. The surgery does not replace the need to change your lifestlyle which is the cause of the obesity problem. The surgery provides the motivation to try again to change your lifestyle, it reduces the appetite and make the transition to a better lifestyle easier and doubles the amount of weight you would lose compared to doing the lifestyle change without the surgery. You will need to be on a liquid diet with protein shakes for 2 weeks before surgery to maximize weight loss and boost your nutritional status to recover better from surgery and also for the first two weeks after surgery to let the stomach heal before we introduce other foods. After the first 2 weeks we will introduce protein bars and soft foods like scrambled eggs, cottage cheese and yogurt and after the 6th week will introduce meat, fish and cooked vegetables in small amounts. Over time you should be able to eat everything in small amounts. Side effects like nausea, vomiting, heartburn or abdominal pain are not common in the practice unless you are not following in the practice. This operation requires lifetime commitment to following in our practice and communication with me. You will much less weight and experience side effects if you don?t communicate or not following in the practice. Complications are rare and in our practice is about 1/10 of the national average. However, you can develop bleeding that may require transfusion (hasn?t happened for year in the practice), you may from complications (we did not have any deaths in the practice) and infections. Infections are usually a result of breakdown in communication or not understanding or following directions correctly. They are difficult to treat, they can happen during the first 6 weeks, they may require to be in the hospital for weeks or even months, not being able to eat by mouth and you may have drains and surgeries to try and correct the issue. Other risks and complications include possible conversion to an open procedure, leaks, small bowel obstruction, blood clots, cardiac, or pulmonary complications, as half-way complications such as ulcers, insufficient weight loss and vitamin deficiencies. 2. You will receive a link of our software shani to generate an individualized nutritional and exercise plan specific for you. Please send me a screenshot of the plans you will generate Meal to include lean meat (beef, fish, pork, turkey, chicken), or gabonese yogurt, or egg whites, or beans with a salad with olive oil and fruits (berries, pears, apples, kiwi). Avoid salt, breads, potatoes, rice, pasta, desserts. ?3. If you choose shakes, each shake would be drunk slowly, like coffee in a period of 2 hours. ?4. If you choose bars, cut each bar in 4 pieces and eat each piece in 30min ?to make each bar last 2 hours. ?5. I emphasized the importance of measuring accurately the food portion and measure it when serving the food in plate ?6. The meal portions include a specific number of forks of meat and salad. You always eat the meat portion but you can replace up to half of salad/vegetables portion with rice, potatoes or pasta, or a fruit ?if you like. The less you do it the better weight loss will be. ?7. One full-size fork is what it can be scooped on the fork without falling aside and not what can be bit with the fork. Use regular forks like those you find in a typical restaurant. ?8.? Please buy the body composition scale we discussed and send me weight measurements as soon as possible and then once a week. Always include your diet and exercise plan. 9. The best choice would be to purchase a stationary bike, elliptical or treadmill at home that can track calories. Let me know if you do so I can give you an exercise plan. ?10.?It is important of avoiding and for at least 18 months postoperatively and has been discussed at the infosession. ?11. Goal is to lose at least 1.5-2lbs per week ?12. Goal to lose 10% of your weight before surgery, which is about 23lbs. Ultimate weight goal: 205lbs before surgery 13. Please follow the diet plan exactly without any change. If you don't like something about the plan or you feel hungry you need to communicate with me so I can help you revise the plan. You should not change the plan yourself. 14. To be scheduled for EGD to assess the stomach's anatomy. The possibility of biopsies was discussed. Patient needs to avoid use of NSAIDs and aspirin for 1 week prior to EGD. You must be on liquids only the day before your endoscopy. Risks of perforation and bleeding was discussed with the patient. This will be an outpatient procedure with IV sedation. 15. Please take the Phentermine daily at 11am. We discussed the potential side- effects of the Phentermine such as irritability, dry mouth, difficulty sleeping, dizziness, numbness in feet and high blood pressure. I asked her to get a blood pressure monitor and measure the blood pressure daily in the morning and evening. She needs to send the blood pressure readings daily and to call the office for blood pressure over 140/80 and she understands that. Orders: Orders Complete Blood Count Auto Diff Today E03.9 - Hypothyroidism, unspecified, E11.9 - Type 2 diabetes mellitus without complications, E66.9 - Obesity, unspecified, Z68.36 - Body mass index [BMI] 36.0-36.9, adult IRON PROFILE Today E03.9 - Hypothyroidism, unspecified, E11.9 - Type 2 diabetes mellitus without complications, E66.9 - Obesity, unspecified, Z68.36 - Body mass index [BMI] 36.0-36.9, adult C Reactive Protein Today E03.9 - Hypothyroidism, unspecified, E11.9 - Type 2 diabetes mellitus without complications, E66.9 - Obesity, unspecified, Z68.36 - Body mass index [BMI] 36.0-36.9, adult TSH reflex Free T4 Today E03.9 - Hypothyroidism, unspecified, E11.9 - Type 2 diabetes mellitus without complications, E66.9 - Obesity, unspecified, Z68.36 - Body mass index [BMI] 36.0-36.9, adult US abdomen comp w elastography Today E03.9 - Hypothyroidism, unspecified, E11.9 - Type 2 diabetes mellitus without complications, E66.9 - Obesity, unspecified, Z68.36 - Body mass index [BMI] 36.0-36.9, adult Insulin Today E03.9 - Hypothyroidism, unspecified, E11.9 - Type 2 diabetes mellitus without complications, E66.9 - Obesity, unspecified, Z68.36 - Body mass index [BMI] 36.0-36.9, adult Hemoglobin A1c Today E03.9 - Hypothyroidism, unspecified, E11.9 - Type 2 diabetes mellitus without complications, E66.9 - Obesity, unspecified, Z68.36 - Body mass index [BMI] 36.0-36.9, adult H Pylori Breath Test Today E03.9 - Hypothyroidism, unspecified, E11.9 - Type 2 diabetes mellitus without complications, E66.9 - Obesity, unspecified, Z68.36 - Body mass index [BMI] 36.0-36.9, adult Lipid Panel Today E03.9 - Hypothyroidism, unspecified, E11.9 - Type 2 diabetes mellitus without complications, E66.9 - Obesity, unspecified, Z68.36 - Body mass index [BMI] 36.0-36.9, adult Comprehensive Met. Panel Today E03.9 - Hypothyroidism, unspecified, E11.9 - Type 2 diabetes mellitus without complications, E66.9 - Obesity, unspecified, Z68.36 - Body mass index [BMI] 36.0-36.9, adult Vitamin B12 and Folate Today E03.9 - Hypothyroidism, unspecified, E11.9 - Type 2 diabetes mellitus without complications, E66.9 - Obesity, unspecified, Z68.36 - Body mass index [BMI] 36.0-36.9, adult Zinc Today E03.9 - Hypothyroidism, unspecified, E11.9 - Type 2 diabetes mellitus without complications, E66.9 - Obesity, unspecified, Z68.36 - Body mass index [BMI] 36.0-36.9, adult Vitamin B1 Today E03.9 - Hypothyroidism, unspecified, E11.9 - Type 2 diabetes mellitus without complications, E66.9 - Obesity, unspecified, Z68.36 - Body mass index [BMI] 36.0-36.9, adult Vitamin A Today E03.9 - Hypothyroidism, unspecified, E11.9 - Type 2 diabetes mellitus without complications, E66.9 - Obesity, unspecified, Z68.36 - Body mass index [BMI] 36.0-36.9, adult Ferritin Today E03.9 - Hypothyroidism, unspecified, E11.9 - Type 2 diabetes mellitus without complications, E66.9 - Obesity, unspecified, Z68.36 - Body mass index [BMI] 36.0-36.9, adult Vitamin D 25-OH Total Today E03.9 - Hypothyroidism, unspecified, E11.9 - Type 2 diabetes mellitus without complications, E66.9 - Obesity, unspecified, Z68.36 - Body mass index [BMI] 36.0-36.9, adult XR chest 2V Today E03.9 - Hypothyroidism, unspecified, E11.9 - Type 2 diabetes mellitus without complications, E66.9 - Obesity, unspecified, Z68.36 - Body mass index [BMI] 36.0-36.9, adult ECG 12 lead EKG Today E03.9 - Hypothyroidism, unspecified, E11.9 - Type 2 diabetes mellitus without complications, E66.9 - Obesity, unspecified, Z68.36 - Body mass index [BMI] 36.0-36.9, adult FL upper GI w air Today E03.9 - Hypothyroidism, unspecified, E11.9 - Type 2 diabetes mellitus without complications, E66.9 - Obesity, unspecified, Z68.36 - Body mass index [BMI] 36.0-36.9, adult Referrals Behavioral Health Referral E03.9 - Hypothyroidism, unspecified, E11.9 - Type 2 diabetes mellitus without complications, E66.9 - Obesity, unspecified, Z68.36 - Body mass index [BMI] 36.0-36.9, adult Nutrition/Dietitian Referral E03.9 - Hypothyroidism, unspecified, E11.9 - Type 2 diabetes mellitus without complications, E66.9 - Obesity, unspecified, Z68.36 - Body mass index [BMI] 36.0-36.9, adult Medications: New phentermine must administer 30 minutes before or 1-2 hours after breakfast 37.5 mg PO DAILY 30 caps 0RF E66.9 - Obesity, unspecified, Z68.36 - Body mass index [BMI] 36.0-36.9, adult
== END 2025-01-11 11:02 | disposition home or self-care (01) ==
PROVIDERS: PCP Internal Medicine; Visit Provider Surgery
DX: E66.812 Obesity, class 2 (principal); Z68.36 Body mass index [BMI] 36.0-36.9, adult
CPT/HCPCS: 99204

== ENCOUNTER → 2025-01-11 07:57 | Outpatient (BNVA) | payer OTHER, SELFPAY | PROVIDERS: PCP Internal Medicine; Visit Provider Surgery | DX: E66.9 Obesity, unspecified (principal); Z68.36 Body mass index [BMI] 36.0-36.9, adult | CPT/HCPCS: 99202 ==

== ENCOUNTER 2025-01-18 07:58 | Outpatient (REF) | payer OTHER, SELFPAY ==
--- NOTE | ~2025-01-18 | XR_ITS ---
EXAMINATION: XR CHEST 2 VIEWS HISTORY: E66.9 - Obesity, unspecified COMPARISON: Comparison is made with the prior examination dated 10/14/2024. FINDINGS: PA and lateral views of the chest are submitted. The lungs are expanded and clear. There is no pleural effusion, pneumothorax, or pulmonary vascular congestion. The heart is normal in size. The bones are intact. XR/XR chest 2V IMPRESSION: No acute cardiopulmonary abnormality. Electronically signed by: Gume Purdy MD 01/21/2025 11:55 AM EDT
--- NOTE | 2025-01-18 08:02 | ECG_ITS ---
Test Reason : E66.09 Blood Pressure : */* mmHG Vent. Rate : 67 BPM Atrial Rate : 67 BPM P-R Int : 126 ms QRS Dur : 90 ms QT Int : 384 ms P-R-T Axes : 51 2 16 degrees QTcB Int : 405 ms Normal sinus rhythm Minimal voltage criteria for LVH, may be normal variant ( R in aVL ) Borderline ECG When compared with ECG of 20-Nov-2022 12:58, No significant change was found Referred By: Davy Pillai Electronically Signed By: DOUGLAS JACOBO MD
--- OUTSIDE RECORDS SUMMARY | 2025-01-18 08:04 | XMS_ITS | Encounter Summary ---
Author Organization [facility] Address [address] [place] [address] Phone Care Team Providers Care Director Of Retail Name Role Phone Alesia James MD Primary Care Provider [phone] Reason for Visit * Reason Comments Med Refill Encounter Details Date Type Department Care Team (Late st Contact Info) Description 05/21/2024 Refill [facility] [address] [place] [address] Eleno Knowles MD [address] [facility] [address] [place] [address] Social History Tobacco Use Types [...] filedocumented in this encounter Care Teams Director Of Retail Relationship Specialty Start Date End Date Alesia James MD [address] [place], [place] PCP - General Internal Medicine 07/01/21 documented as of this encounter
--- OUTSIDE RECORDS SUMMARY | 2025-01-18 08:04 | XMS_ITS | Encounter Summary ---
Author Organization [facility] Address [address] [place] [address] Care Team Providers Care Lamp Cleaner Street Light Name Role Phone System, Provider Not In Primary Care Provider Un available Alesia James MD Primary Care Provider [phone] Encounter Details Date Type Department Care Team (Latest Contact Info) Description 10/15/2020 Lab Requisition [facility] Drive Through [address] [place] [address] [address] [place] [address] Ranjit Weiner PA-C [address] [place] [address] Encounter for laboratory testing for COVID-19 virus [...] NOT DETECTED Not Detected 10/16/2020 12:14 PM [facility] Comment: ADDITIONAL INFORMATION The FRED COVID-19 RT-PCR Assay is Real-Time Reverse Sterile Instrument Technician Polymerase Chain Reaction (quarry worker-PCR) for the in vitro qualitative detection of three SARS-Cov-2 target sequences unique to the coronavirus disease 2019 (COVID-19). This is an Emergency Use Authorization (EUA) in vitro diagnostic (IVD) test that has been modified to include the [employer] automated liquid handler. Its analytical performance characteristics have been determined by the master cook and verified by [facility] in a manner consistent with CLIA [...] at the following links: For Healthcare Providers: https://www.fda.gov/media/099638/download For Patients: https://www.fda.gov/media/539518/download TEST LIMITATIONS Positive results are indicative of [...] system. For further details refer to the [employer] TaqPath COVID-19 Combo Kit EUA submission (https://www.[employer].gov/media/060294/download). ----- Test performed by [facility], [address] [place] [address] CLIA# [id number] ?[id number] ? Guillaume Rodgers M.D., Ph.D., [facility] [place] Clinical School Commissioner Microbiology Nasopharyngeal swab / Unknown 10/15/2020 2:37 PM EST 10/15/2020 2:37 PM EST Narrative [facility] - 10/16/2020 12:14 PM EST Performed at [facility], [address] [place] [address], [place] Lic [address], CLIA [id number] Ranjit Weiner PA-C MICROBIOLOGY - NERAL ORDERABLES [address] [address] documented in this encounter Visit Diagnoses Diagnosis Encounter for laboratory testing for COVID-19 virus documented in this encounter Care Teams Lamp Cleaner Street Light Relationship Specialty Start Date End Date System, Provider Not In PCP - General 10/22/20 Alesia James MD [address] [place] [address] PCP - General 10/21/20 documented as of this encounter
--- OUTSIDE RECORDS SUMMARY | 2025-01-18 08:04 | XMS_ITS | Clinical Summary ---
Author Organization [facility] Address [address] [place] [address] Care Team Providers Care Smoking Pipe Maker Name Role Phone System, Provider Not In [...] this topic Medical Devices Implanted Type Area Health Safety Engineer Device Identifier Shelf Expiration Date Model / Serial / Lot [id number] Port Implantable Infusion Vaccess Ct 6fr Power Injectable - [id number] Implanted:Qty: 1 on 10/22/2020 by Bandar Miller MD at [facility] Access Port [employer] - [id number] 03/13/2022 [id number] / [id number] Care Teams Smoking Pipe Maker Relationship Specialty Start Date End Date System, Provider Not In PCP - General 10/22/20
--- OUTSIDE RECORDS SUMMARY | 2025-01-18 08:04 | XMS_ITS | Clinical Summary ---
Author Organization [facility] Address [address] [place] [address] [address] [place] [address] Phone Care Team Providers Care Learning Facilitator Name Role Phone Alesia James MD Primary Care Provider [phone] Allergies No known active allergies Medications omeprazole [...] [place] [address] [id number] expiration 09/2022 Localized edema 08/18/2021 Acute tubular [...] Influenza Vaccine (#1) 2024 Insurance Care Teams Learning Facilitator Relationship Specialty Start Date End Date Alesia James MD [address] [place], [place] PCP - General Internal Medicine 07/01/21
[2025-01-18 08:27] LABS: MANUAL DIFF FLAG NO
[2025-01-18 09:02] LABS: Basophils Absolute Auto 0.1 X10*3/uL (0.0-0.2); Basophils Percent Auto 0.9 % (0-2); Eosinophils Absolute Auto 0.1 X10*3/uL (0.0-0.4); Eosinophils Percent Auto 2.6 % (0-4); Hemoglobin 12.7 g/dl (12.0-16.0); Imm Gran Abs Auto 0.02 X10*3/uL (0.00-0.03); Imm Gran Pct Auto 0.4 % (0.0-0.4); Lymphocytes Absolute Auto 1.5 X10*3/uL (1.2-4.9); Mean Corpuscular HGB Conc 31.8 g/dl (31.0-35.0); Mean Corpuscular Hemoglobin 26.9 pg (27.0-33.0); Mean Corpuscular Volume 84.7 fL (80.0-98.0); Mean Platelet Volume 11.3 fL (9.4-12.3); Monocytes Absolute Auto 0.4 X10*3/uL (0.1-1.2); Neutrophils Absolute Auto 3.4 x10*3/uL (2.0-8.3); Neutrophils Percent Auto 61.1 % (45-73); Platelet Count 211 X10*3/uL (160-400); Red Blood Count 4.72 X10*6/uL (4.20-5.50); Red Cell Distribution Width 14.5 % (11.0-16.0); White Blood Count 5.5 X10*3/uL (4.8-10.8)
[2025-01-18 09:45] LABS: Alanine Aminotransferase 20 U/L (0-31); Albumin Level 3.8 g/dL (3.5-5.0); Alkaline Phosphatase 64 U/L (39-117); Anion Gap 8 (12-20); Aspartate Amino Transferase 20 U/L (5-31); Bilirubin Total 0.3 mg/dL (0.0-1.0); Blood Urea Nitrogen 18 mg/dL (9-16); C Reactive Protein 0.48 mg/dL (< or = 0.50); Calcium 8.4 mg/dL (8.4-10.2); Carbon Dioxide 24 mmol/L (22-29); Chloride 113 mmol/L (96-108); Cholesterol 233 mg/dL (<200); Estimated Glomerular Filt Rate > 60; Glucose Random 108 mg/dL (60-115); HDL Cholesterol 47 mg/dL (>40); Iron 40 mcg/dL (30-160); LDL Cholesterol Calculated 168 mg/dL (<100); Percent Iron Saturation 16 % (15-50); Potassium 4.3 mmol/L (3.3-5.1); Sodium 141 mmol/L (135-145); Total Iron Binding Capacity 247 mcg/dL (228-428); Triglycerides 93 mg/dL (<150); Unsaturated Iron Binding 207 ug/dL
[2025-01-18 09:59] LABS: Ferritin 204 ng/mL (10-250); TSH reflex Free T4 1.11 uIU/mL (0.32-4.0); Vitamin D 25-OH Total 19.1 ng/mL (>30)
[2025-01-18 10:09] LABS: Estimated Average Glucose 114 mg/dL; Hemoglobin A1c % 5.6 % (<6.0)
[2025-01-18 10:14] LABS: Folate 9.5 ng/mL (> or = 4.0); Vitamin B12 461 pg/mL (200-900)
[2025-01-18 11:46] LABS: Insulin 11 uU/mL (2-29)
[2025-01-21 19:13] LABS: Zinc 52 mcg/dL (60-130)
[2025-01-22 17:44] LABS: Vitamin A 49 mcg/dL (38-98)
[2025-01-27 15:08] LABS: Vitamin B1 7 nmol/L (8-30)
== END 2025-01-18 07:59 | disposition home or self-care (01) ==
LOC: HO.LAB 07:58
PROVIDERS: PCP Internal Medicine; Visit Provider Surgery
DX: E66.9 Obesity, unspecified (principal); E11.9 Type 2 diabetes mellitus without complications; E03.9 Hypothyroidism, unspecified; Z68.36 Body mass index [BMI] 36.0-36.9, adult
CPT/HCPCS: 36415; 71046; 80053; 80061; 82306; 82607; 82728; 82746; 83036; 83525; 83540; 84425; 84443; 84590; 84630; 85025; 86140; 93005

== ENCOUNTER → 2025-01-18 08:02 | Outpatient (BNV) | payer OTHER, SELFPAY | PROVIDERS: PCP Internal Medicine; Visit Provider Internal Medicine Cardiovascular Disease | DX: E66.09 Other obesity due to excess calories (principal) | CPT/HCPCS: 93010 ==

== ENCOUNTER → 2025-01-18 08:26 | Outpatient (BNV) | payer OTHER, SELFPAY | PROVIDERS: PCP Internal Medicine; Visit Provider Radiology Diagnostic Radiology | DX: E66.9 Obesity, unspecified (principal) | CPT/HCPCS: 71046 ==

== ENCOUNTER → 2025-02-04 12:57 | Outpatient (REF) | payer OTHER, SELFPAY | LOC: HO.SL 12:57 | PROVIDERS: PCP Internal Medicine; Visit Provider Nurse Practitioner Family | DX: R06.83 Snoring (principal); G47.30 Sleep apnea, unspecified; G47.19 Other hypersomnia | CPT/HCPCS: 95806 ==

== ENCOUNTER → 2025-02-04 13:08 | Outpatient (BNV) | payer OTHER, SELFPAY | PROVIDERS: PCP Internal Medicine; Visit Provider Psychiatry & Neurology Neurology | DX: R06.83 Snoring (principal); G47.10 Hypersomnia, unspecified | CPT/HCPCS: 95806 ==

== ENCOUNTER 2025-02-08 10:04 | Outpatient (AMB) | payer OTHER, SELFPAY ==
--- NOTE | 2025-02-08 10:05 | MHC.WMTHER ---
Intake Intake Visit Reasons: OV BH Intake Allergies Seasonal Allergies Allergy (Mild, Verified 01/11/25 08:15) Unknown [facility] Medical History (Updated 01/27/25 @ 17:27 by Davy Pillai MD) BMI 36.0-36.9,adult Obesity Anemia Sleep apnea Port-A-Cath in place Hemorrhoids with complication COVID-19 LAXMI (acute kidney injury) Diabetes mellitus NAVNEET (generalized anxiety disorder) Moderate recurrent major depression Blurry vision Essential hypertension Allergic rhinitis Hypothyroid Mixed hyperlipidemia GERD (gastroesophageal reflux disease) Surgical History History of hemorrhoidectomy (~08/24/22) Hx of colonoscopy History of esophagogastroduodenoscopy (EGD) History of surgery History of eye surgery History of removal of both ovaries History of hysterectomy History of cholecystectomy History of tonsillectomy History of tubal ligation History of appendectomy Family History Father Diabetes Hypertension Glaucoma Stroke Anxiety Mother Diabetes Hypertension Breast cancer History of mastectomy Depression Family/Other FH: mental illness Social History (Updated 12/26/24 @ 15:19 by Octavia Palmer CMA) Household Members Other:: [id number] w/special needs Housing: House Are you a primary home care administrator to a significant other at home: Yes (mother coming to assist patient post-op @ home) Do you presently have visiting nurse or other home services: No Alcohol intake: current Alcohol intake frequency: holidays/special occasions only Comment: medicated with po tylenol and oxycodone Patient Tobacco Use Status: Never used Tobacco e-Cigarette/Vaping Use: Never Used Second Hand Smoke Exposure: No service: No Current occupational status: employed Current occupational exposures/hazards: No Cognitive needs: No Hearing needs: No Vision needs: Yes Behavioral Health Assessment Weight Management Therapy Therapy Notes Details PT is a 44 years old female, who presents for initial visit to start BH assessment as part of surgical weight loss program. Presenting Concerns Referral Source WMP- Provider Reason for referral Completion of behavioral health assessment as part of process for weight-loss surgery. Precipitating Event Obesity Living Situation Current Living Situation Rent Comments PT lives with her 3 children, 1 of them is in college, so comes home in [place]. Food/Weight/Diet Expectations of change Initial goal is to lose 10% of her weight before surgery, which is about 23lbs. Ultimate weight goal: 205lbs before surgery Patient started the program at 226Lbs in 01/01, and most recent weight was 217Lbs as od 02/05/2025 PT is implementing the following: Current meal plan: 2.5 fairlife shakes, and 1 meal. Exercise plan: Walking. History/Relationship with food Example of meals before starting the program: Breakfast: Lunch: Dinner: Snacks: Drinks/Liquids: History/Relationship with weight In the last 10 years, the patient's Lowest weight was and highest Social History Family history and relationship PT is about 2 years ago. Currently dating. 3 children, 2 boys and 1 daughters. Parents are both alive and still together, she has 4 siblings, 2 brothers and 2 sisters, she is the middle child. The 2 oldest are form her mother's first marriage. PT reports her family relationships are good now, with some ups and downs in the last years. 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 Daughter is 19 and is in college. the 2 boys are 24 and 23. The 2 boys are in the spectrum but high functioning. She supports her mother when in need due to medical issues, recently went to [place] to care for her for about 2 weeks. Developmental history and status None reported. Currently WNL. Social support Children, mainly her daughter. Her boyfriend, youngest sister, best friend(Tracey). Community support PCP. Tenriism/Spirituality Grew up Faith. Attended an mosque druze for years, but not as connected now as before. Cultural/Ethnic information , parents from [place]. Lived in [place] of her childhood. She has been in [place] Legal Involvement and History Current or historical involvement with the legal system? None reported Education Highest grade completed HS. Some college. Educational Interests/Skills Had her cosmology license. 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 ) Wants help to find employment? No Financial Situation Describe current financial situation Comfortable Financial assistance? Other (Section 8. ) Service Service? No Mental Health and Addiction Treatment Psychiatric history PCP prescribing meds for anxiety/depression. Questionnaires PHQ-9 Over the last 2 weeks, how often have you been bothered by any of the following problems? 1. Little interest or pleasure in doing things: several days 2. Feeling down, depressed, or hopeless: several days 3. Trouble falling or staying asleep, or sleeping too much: more than half the days 4. Feeling tired or having little energy: several days 5. Poor appetite or overeating: several days 6. Feeling bad about yourself - or that you are a failure or have let yourself or your family down: several days 7. Trouble concentrating on things, such as reading the newspaper or watching television: more than half the days 8. Moving or speaking so slowly that other people could have noticed. Or the opposite - being so fidgety or restless that you have been moving around a lot more than usual: several days 9. Thoughts that you would be better off or of hurting yourself in some way: not at all Total score: 10 Depression Screening Interpretation: Positive (From new PT pack. New one will be administered at enxt visit. ) Depression Screening Done: Yes Source: Developed by Drs. Gume Coronado, Lore Han, Julius Dias and colleagues, with an educational kurt from [employer]. Binge Eating Scale Group 1 A. I don't feel self-conscious about my wt. or body size when I'm with others. B. I feel concerned about how I look to others, but it normally does not make me fell disappointed with myself C. I do get self-conscious about my appearance and wt. which makes me feel disappointed in myself. D. I feel very self-conscious about my wt. and frequently I feel intense shame and disgust for myself. I try to avoid social contacts because of my self-consciousness. Response Group 1: C Group 2 A. I don't have any difficulty eating slowly in the proper manner. B. Although I seem to gobble down foods, I don't end up feeling stuffed because of eating to much. C. At times, I tend to eat quickly and then, I feel uncomfortably full afterwards. D. I have the habit of bolting down my food, without really chewing it. When this happens I usually feel uncomfortably stuffed because I've eaten to much. Response Group 2: A Group 3 A. I feel capable to control my eating urges when I want to. B. I feel like I have failed to control my eating more than the average person. C. I feel utterly helpless when it comes to feeling in control of my eating urges. D. Because I feel so helpless about controlling my eating I have become very desperate about trying to get control. Response Group 3: A Group 4 A. I don't have the habit of eating when I'm bored. B. I sometimes eat when I'm bored, but often I'm able to get busy and get my mind off food. C. I have a regular habit of eating when I'm bored, but occasionally, I can use some other activity to get my mind off eating. D. I have a strong habit of eating when I'm bored. Nothing seems to help me breath the habit. Response Group 4: C Group 5 A. I'm usually physically hungry when I eat something. B. Occasionally, I eat something on impulse even though I really am not hungry. C. I have the regular habit of eating foods, that I might not really enjoy, to satisfy a hungry feeling even though physically, I don't need the food. D. Although I'm not physically hungry, I get a hungry feeling in my mouth that only seems to be satisfied when I eat a food, like sandwich, that fills my mouth. Sometimes, when I eat the food to satisfy my mouth hunger, I then spit the food out so I won't gain weight. Response Group 5: B Group 6 A. I don't feel any guilt or self-hate after I overeat. B. After I overeat, occasionally I feel guilt or self-hate. C. Almost all the time I experience strong guilt or self-hate after I overeat. Response Group 6: B Group 7 A. I don't lose total control of my eating when dieting even after periods when I overeat. B. Sometimes when I eat a forbidden food on a diet, I feel like I blew it and eat even more. C. Frequently, I have the habit of saying to myself, I've blown it now, why not go all the way, when I overeat on a diet. When that happens I eat more. D. I have a regular habit of starting a strict diets for myself but I break the diets by going on an eating binge. My life seems to be either a feast or famine. Response Group 7: A Group 8 A. I rarely eat so much food that I feel uncomfortably stuffed afterwards. B. Usually about once a month, I each such a quantity of food, I end up feeling very stuffed. C. I have regular periods during the month when I eat large amounts of food, either at mealtime or at snacks. D. I eat so much food that I regularly feel quite uncomfortable after eating and sometimes a bit nauseous. Response Group 8: B Group 9 A. My level of calorie intake does not go up very high or go down very low on a regular basis. B. Sometimes after I overeat, I will try to reduce my caloric intake to almost nothing to compensate for the excess calories I've eaten. C. I have a regular habit of overeating during the night. It seems that my routine is not to be hungry in the morning but overeat in the evening. D. In my adult years, I have had week-long periods where I practically starve myself. This follows periods when I overeat. It seems I live a life of either feast or famine. Response Group 9: A Group 10 A. I usually am able to stop eating when I want to. I know when enough is enough. B. Every so often, I experience a compulsion to eat which I can't seem to control. C. Frequently, I experience strong urges to eat which I seem unable to control, but at other times I can control my eating urges. D. I feel incapable of controlling urges to eat. I have a fear of not being able to stop eating voluntarily. Response Group 10: A Group 11 A. I don't have any problem stopping eating when I feel full. B. I usually can stop eating when I feel full but occasionally overeat leaving me feeling uncomfortably stuffed. C. I have a problem stopping eating once I start and usually I feel uncomfortably stuffed after I eat a meal. D. Because I have a problem not being able to stop eating when I want, I sometimes have to induce vomiting to relieve my stuffed feeling. Response Group 11: B Group 12 A. I seem to eat just as much when I'm with others, Family social gatherings as when I'm by myself. B. Sometimes, when I'm with other persons, I don't eat as much as I want to eat because I'm self-conscious about my eating. C. Frequently, I eat only a small amount of food when others are present, because I'm very embarrassed about my eating. D. I feel so ashamed about overeating that I pick times to overeat when I know no one will see me. I feel like a closet eater. Response Group 12: B Group 13 A. I eat three meals a day with only an occasional between meal snack. B. I eat 3 meals a day, but I also normally snack between meals. C. When I am snacking heavily, I get in the habit of skipping regular meals. D. There are regular periods when I seem to be continually eating, with no planned meals. Response Group 13: C Group 14 A. I don't think much about trying to control unwanted eating urges. B. At least some of the time, I feel my thoughts are pre-occupied with trying to control my eating urges. C. I feel that frequently I spend much time thinking about how much I ate or about trying not to eat anymore. D. It seems to me that most of my waking hours are pre-occupied by thoughts about eating or not eating. I feel like I'm constantly struggling not to eat. Response Group 14: B Group 15 A. I don't think about food a great deal. B. I have strong craving for food but they last only for brief periods of time. C. I have days when I can't seem to think about anything else but food. D. Most of my days seem to be pre-occupied with thoughts about food. I feel like I live to eat. Response Group 15: B Group 16 A. I usually know whether or not I'm physically hungry. I take the right portion of food to satisfy me. B. Occasionally, I feel uncertain about knowing whether or not I'm physically hungry. A these times it's hard to know how much food I should take to satisfy me. C. Even though I might know how many calories I should eat, I don't have any idea what is a normal amount of food for me. Response Group 16: B Binge Eating Score: 14 Score less than 17 Minimal Risk Score between 18-26 Moderate Risk Score between 27-46 High Risk Assessment & Plan Assessment & Plan (1) Anxiety disorder: Code(s): F41.9 - Anxiety disorder, unspecified Plan The patient has not been cleared yet and is scheduled to return in approximately 1 weeks to continue the assessment. The PHQ-9 will be administered again during the next visit, prior to completing the assessment. Next appointment: 02/14/2025 at 11a,m in person. Coding Level of Care Code New Pt Psy Diag Eval (24395) Patient Type New Diagnoses Anxiety disorder F41.9 Time Spent (min) 60
== END 2025-02-08 11:24 | disposition home or self-care (01) ==
LOC: HO.HBST 10:05
PROVIDERS: PCP Internal Medicine; Visit Provider Counselor Mental Health
DX: F41.9 Anxiety disorder, unspecified (principal)
CPT/HCPCS: 90791

== ENCOUNTER → 2025-02-08 10:04 | Outpatient (BNVA) | payer OTHER, SELFPAY | PROVIDERS: PCP Internal Medicine; Visit Provider Counselor Mental Health ==

== ENCOUNTER 2025-02-13 09:12 | Outpatient (REF) | payer OTHER, SELFPAY ==
--- NOTE | 2025-02-13 09:17 | EMG_ITS ---
Chief complaint: Hand numbness, feet numbness, history of thyroid and diabetes Right lower extremity EMG 04/[address] Jones was normal. Reason for referral: Evaluate for neuropathy, Carpal Tunnel Syndrome Referred by: Emilia Morejon NP, Valente SEBASTIAN Procedure done: Upper and lower extremity NCS/EMG Precautions and/or limitations: None The limb temperature was monitored continuously and remained between 32-36 degrees C during the performance of the NCS. Nerve Conduction Studies Anti Sensory Summary Table ?Stim Site NR Onset (ms) Norm Onset (ms) Peak (ms) Norm Peak (ms) O-P Amp (?V) Norm O-P Amp Site1 Site2 Delta-0 (ms) Dist (cm) Zurdo (m/s) Norm Zurdo (m/s) Left Median Anti Sensory (2nd Digit) Wrist ? 2.8 4.0 <3.6 20.4 >10 Wrist 2nd Digit 2.8 14.0 50 Right Median Anti Sensory (2nd Digit) Wrist ? 2.9 4.0 <3.6 36.4 >10 Wrist 2nd Digit 2.9 14.0 48 Left Sural Anti Sensory (Lat Mall) Calf ? 2.4 3.8 <4.0 21.7 >5.0 Calf Lat Mall 2.4 14.0 58 Right Sural Anti Sensory (Lat Mall) Calf ? 2.7 3.4 <4.0 10.0 >5.0 Calf Lat Mall 2.7 14.0 52 Left Ulnar Anti Sensory (5th Digit) Wrist ? 2.5 3.4 <3.7 21.1 >15.0 Wrist 5th Digit 2.5 14.0 56 Right Ulnar Anti Sensory (5th Digit) Wrist ? 2.3 3.1 <3.7 21.6 >15.0 Wrist 5th Digit 2.3 14.0 61 Motor Summary Table ?Stim Site NR Onset (ms) Norm Onset (ms) O-P Amp (mV) Norm O-P Amp iAmp (mV) Amp (1st) (%) Site1 Site2 Delta-0 (ms) Dist (cm) Zurdo (m/s) Norm Zurdo (m/s) Left Median Motor (Abd Poll Brev) Wrist ? 3.5 <3.9 10.9 >4.5 13.6 100.0 Elbow Wrist 3.9 21.0 54 >45 Elbow ? 7.4 10.8 13.4 99.1 Right Median Motor (Abd Poll Brev) Wrist ? 3.6 <3.9 12.2 >4.5 14.7 100.0 Elbow Wrist 4.1 20.5 50 >45 Elbow ? 7.7 12.0 14.6 98.4 Left Peroneal Motor (Ext Dig Brev) Ankle ? 3.8 <4.0 8.6 >2.5 10.5 100.0 Ankle Ext Dig Brev 3.8 0.0 B Fib ? 10.9 7.8 9.5 90.7 B Fib Ankle 7.1 33.0 46 >40 Poplt ? 11.5 7.9 9.6 91.9 Poplt B Fib 0.6 3.5 58 >40 Left Tibial Motor (Abd Pan Brev) Ankle ? 4.8 <5 6.7 >2.5 8.6 100.0 Ankle Abd Pan Brev 4.8 0.0 Knee ? 14.1 6.4 9.7 95.5 Knee Ankle 9.3 41.0 44 >40 Left Ulnar Motor (Abd Dig Minimi) Wrist ? 3.0 <3.0 7.6 >5 8.6 100.0 B Elbow Wrist 3.7 20.0 54 >45 B Elbow ? 6.7 8.0 9.3 105.3 A Elbow B Elbow 1.8 10.0 56 >45 A Elbow ? 8.5 7.2 8.7 94.7 Right Ulnar Motor (Abd Dig Minimi) Wrist ? 2.8 <3.0 7.4 >5 9.3 100.0 B Elbow Wrist 3.4 19.0 56 >45 B Elbow ? 6.2 5.7 7.2 77.0 A Elbow B Elbow 1.7 10.0 59 >45 A Elbow ? 7.9 5.1 6.5 68.9 Comparison Summary Table ?Stim Site NR Peak (ms) Norm Peak (ms) P-T Amp (?V) Site1 Site2 Delta-P (ms) Norm Delta (ms) Right Median/Radial Dig I Comparison (Digit 1 - 10cm) Median ? 2.9 <2.9 45.9 Median Radial 0.4 Radial ? 2.5 <2.8 25.9 EMG ?Side Muscle Nerve Root Ins Act Fibs Psw Amp Dur Poly Recrt Int Pat Comment Right 1stDorInt Ulnar C8-T1 Nml Nml Nml Nml Nml 0 Nml Complete Right FlexCarRad Median C6-7 Nml Nml Nml Nml Nml 0 Nml Complete Right Biceps Musculocut C5-6 Nml Nml Nml Nml Nml 0 Nml Complete Right Triceps Radial C6-7-8 Nml Nml Nml Nml Nml 0 Nml Complete Right Deltoid Axillary C5-6 Nml Nml Nml Nml Nml 0 Nml Complete Left 1stDorInt Ulnar C8-T1 Nml Nml Nml Nml Nml 0 Nml Complete Left FlexCarRad Median C6-7 Nml Nml Nml Nml Nml 0 Nml Complete Left Biceps Musculocut C5-6 Nml Nml Nml Nml Nml 0 Nml Complete Left Triceps Radial C6-7-8 Nml Nml Nml Nml Nml 0 Nml Complete Left Deltoid Axillary C5-6 Nml Nml Nml Nml Nml 0 Nml Complete Right AbdHallucis MedPlantar S1-2 Nml Nml Nml Nml Nml 0 Nml Complete Right AntTibialis Dp Br Peron L4-5 Nml Nml Nml Nml Nml 0 Nml Complete Right PostTibialis Tibial L5, S1 Nml Nml Nml Nml Nml 0 Nml Complete Right MedGastroc Tibial S1-2 Nml Nml Nml Nml Nml 0 Nml Complete Right VastusMed Femoral L2-4 Nml Nml Nml Nml Nml 0 Nml Complete Left AbdHallucis MedPlantar S1-2 Nml Nml Nml Nml Nml 0 Nml Complete Left AntTibialis Dp Br Peron L4-5 Nml Nml Nml Nml Nml 0 Nml Complete Left PostTibialis Tibial L5, S1 Nml Nml Nml Nml Nml 0 Nml Complete Left MedGastroc Tibial S1-2 Nml Nml Nml Nml Nml 0 Nml Complete Left VastusMed Femoral L2-4 Nml Nml Nml Nml Nml 0 Nml Complete FINDINGS: Bilateral median sensory nerve showed prolonged peak latency. All other nerves tested were within normal. Concentric needle EMG was performed in selected muscles of the upper and lower extremities. Study did not reveal signs of electric abnormalities as shown in the table above. IMPRESSION: 1. This is a minimally abnormal study. 2. There is electrodiagnostic evidence for bilateral mild median neuropathy at the wrist, consistent with carpal tunnel syndrome. 3. There is no electrodiagnostic evidence for ulnar neuropathy, brachial plexopathy, or cervical radiculopathy. 4. There is no electrodiagnostic evidence for peroneal neuropathy, tibial neuropathy. lumbosacral plexopathy, lumbar radiculopathy, peripheral neuropathy. Thank you for your kind referral. Dina Hernandez MD, JORGE Board Certified, [place] Board of Physical Medicine and Rehabilitation (ABPMR) Board Certified, [place] Board of Electrodiagnostic Medicine (ABEM) CODIN 20520 x 4 MTDD
--- OUTSIDE RECORDS SUMMARY | 2025-02-13 10:11 | XMS_ITS | Encounter Summary ---
Author Organization [facility] Address [address] [place] [address] Phone Care Team Providers Care Platen Grinder Name Role Phone Alesia James MD Primary Care Provider [phone] Reason for Visit * Reason Comments Med Refill Encounter Details Date Type Department Care Team (Late st Contact Info) Description 05/21/2024 Refill [facility] [address] [place] [address] Eleno Knowles MD [address] [facility] [address] [place] [address] Social History Tobacco Use Types [...] on filedocumented in this encounter Care Teams Platen Grinder Relationship Specialty Start Date End Date Alesia James MD [address] [place], [place] PCP - General Internal Medicine 07/01/21 documented as of this encounter
--- OUTSIDE RECORDS SUMMARY | 2025-02-13 10:12 | XMS_ITS | Clinical Summary ---
Author Organization [facility] Address [address] [place] [address] Care Team Providers Care Power Generating Plant Operator Name Role Phone System, Provider Not In [...] this topic Medical Devices Implanted Type Area Live Games Dealer Device Identifier Shelf Expiration Date Model / Serial / Lot [id number] Port Implantable Infusion Vaccess Ct 6fr Power Injectable - [id number] Implanted:Qty: 1 on 10/22/2020 by Bandar Miller MD at [facility] Access Port [employer] - [id number] 03/13/2022 [id number] / [id number] / [id number] Care Teams Power Generating Plant Operator Relationship Specialty Start Date End Date System, Provider Not In PCP - General 10/22/20
--- OUTSIDE RECORDS SUMMARY | 2025-02-13 10:12 | XMS_ITS | Encounter Summary ---
Author Organization [facility] Address [address] [place] [address] Care Team Providers Care Fast Food Supervisor Name Role Phone System, Provider Not In Primary Care Provider Un available Alesia James MD Primary Care Provider [phone] Encounter Details Date Type Department Care Team (Latest Contact Info) Description 10/15/2020 Lab Requisition [facility] [address] Through [address] [place] [address] [address] [place] [address] Ranjit Weiner PA-C [address] [place] [address] Encounter for laboratory testing for COVID-19 virus [...] NOT DETECTED Not Detected 10/16/2020 12:14 PM [facility] Comment: ADDITIONAL INFORMATION The FRED COVID-19 RT-PCR Assay is Real-Time Reverse Clinical Business Analyst Polymerase Chain Reaction (mri supervisor-PCR) for the in vitro qualitative detection of three SARS-Cov-2 target sequences unique to the coronavirus disease 2019 (COVID-19). This is an Emergency Use Authorization (EUA) in vitro diagnostic (IVD) test that has been modified to include the [employer] automated liquid handler. Its analytical performance characteristics have been determined by the information systems manager and verified by [facility] in a manner consistent with CLIA [...] at the following links: For Healthcare Providers: https://www.fda.gov/media/944250/download For Patients: https://www.fda.gov/media/381322/download TEST LIMITATIONS Positive results are indicative of [...] system. For further details refer to the [employer] TaqPath COVID-19 Combo Kit EUA submission (https://www.Wetradetogether.gov/media/455134/download). ----- Test performed by [facility], [address] [place] [address] CLIA# [id number] ?[id number] ? Guillaume Rodgers M.D., Ph.D., [facility], Clinical Lna Microbiology Nasopharyngeal swab / Unknown 10/15/2020 2:37 PM EST 10/15/2020 2:37 PM EST Narrative [facility] - 10/16/2020 12:14 PM EST Performed at [facility], [address] [place] [address], [place] Lic 0695, CLIA [id number] Ranjit Weiner PA-C MICROBIOLOGY - NERAL ORDERABLES [address] [address] documented in this encounter Visit Diagnoses Diagnosis Encounter for laboratory testing for COVID-19 virus documented in this encounter Care Teams Fast Food Supervisor Relationship Specialty Start Date End Date System, Provider Not In PCP - General 10/22/20 Alesia James MD [address] [place] [address] PCP - General 10/21/20 documented as of this encounter
--- OUTSIDE RECORDS SUMMARY | 2025-02-13 10:12 | XMS_ITS | Clinical Summary ---
Author Organization [facility] Address [address] [place] [address] [address] [place] [address] Phone Care Team Providers Care Correctional Security Officer Name Role Phone Alesia James MD Primary Care Provider [phone] Allergies No known active allergies Medications omeprazole [...] [place] U[address] [id number] expiration 09/2022 Localized edema 08/18/2021 Acute tubular [...] Influenza Vaccine (#1) 2024 Insurance Care Teams Correctional Security Officer Relationship Specialty Start Date End Date Alesia James MD [address] [place], [place] PCP - General Internal Medicine 07/01/21
== END 2025-02-13 09:13 | disposition home or self-care (01) ==
LOC: HO.NEURO 09:12
PROVIDERS: PCP Internal Medicine; Visit Provider Nurse Practitioner Family
DX: G56.13 Other lesions of median nerve, bilateral upper limbs (principal); R20.0 Anesthesia of skin; R20.2 Paresthesia of skin
CPT/HCPCS: 95860; 95886; 95913

== ENCOUNTER → 2025-02-13 09:18 | Outpatient (BNV) | payer OTHER, SELFPAY | PROVIDERS: PCP Internal Medicine; Visit Provider Physical Medicine & Rehabilitation | DX: G56.03 Carpal tunnel syndrome, bilateral upper limbs (principal); R20.0 Anesthesia of skin; R20.2 Paresthesia of skin | CPT/HCPCS: 95886; 95913 ==

== ENCOUNTER 2025-02-14 11:06 | Outpatient (AMB) | payer OTHER, SELFPAY ==
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
--- OUTSIDE RECORDS SUMMARY | 2025-02-14 12:29 | XMS_ITS | Encounter Summary ---
Author Organization [facility] Address [address] [place] [address] Phone Care Team Providers Care Production Machine Tender Name Role Phone Alesia James MD Primary Care Provider [phone] Reason for Visit * Reason Comments Med Refill Encounter Details Date Type Department Care Team (Late st Contact Info) Description 05/21/2024 Refill [facility] [address] [place] [address] Eleno Knowles MD [address] [facility] [address] [place] [address] Social History Tobacco Use Types [...] on filedocumented in this encounter Care Teams Production Machine Tender Relationship Specialty Start Date End Date Alesia James MD [address] [place], [place] PCP - General Internal Medicine 07/01/21 documented as of this encounter
--- OUTSIDE RECORDS SUMMARY | 2025-02-14 12:29 | XMS_ITS | Clinical Summary ---
Author Organization [facility] Address [address] [place] [address] Care Team Providers Care Furniture Maker Name Role Phone System, Provider Not [...] this topic Medical Devices Implanted Type [employer] Device Identifier Shelf Expiration Date Model / Serial / Lot [id number] Port Implantable Infusion Vaccess Ct 6fr Power Injectable - [id number] Implanted:Qty: 1 on 10/22/2020 by Bandar Miller MD at [facility] Access Port [employer] - [id number] 03/13/2022 [id number] / [id number] / [id number] Care Teams Furniture Maker Relationship Specialty Start Date End Date System, Provider Not In PCP - General 10/22/20
--- OUTSIDE RECORDS SUMMARY | 2025-02-14 12:29 | XMS_ITS | Clinical Summary ---
Author Organization [facility] Address [address] [place] [address] [address] [place] [address] Phone Care Team Providers Care Pocket Machine Operator Name Role Phone Alesia James MD Primary Care Provider [phone] Allergies No known active allergies Medications omeprazole [...] [place] U[address] [id number] expiration 09/2022 Localized edema 08/18/2021 Acute tubular [...] Influenza Vaccine (#1) 2024 Insurance Care Teams Pocket Machine Operator Relationship Specialty Start Date End Date Alesia James MD [address] [place], [place] PCP - General Internal Medicine 07/01/21
--- OUTSIDE RECORDS SUMMARY | 2025-02-14 12:29 | XMS_ITS | Encounter Summary ---
Author Organization [facility] Address [address] [place] [address] Care Team Providers Care Operations Scheduler Name Role Phone System, Provider Not In Primary Care Provider Un available Alesia James MD Primary Care Provider [phone] Encounter Details Date Type Department Care Team (Latest Contact Info) Description 10/15/2020 Lab Requisition [facility] [address] Through [address] [place] [address] [address] [place] [address] Ranjit Weiner PA-C [address] [place] [address] Encounter for laboratory testing for COVID-19 virus [...] DETECTED Not Detected 10/16/2020 12:14 PM [facility] Comment: ADDITIONAL INFORMATION The FRED COVID-19 RT-PCR Assay is Real-Time Reverse Brick Unloader Tender Polymerase Chain Reaction (bell spinner sousaphones-PCR) for the in vitro qualitative detection of three SARS-Cov-2 target sequences unique to the coronavirus disease 2019 (COVID-19). This is an Emergency Use Authorization (EUA) in vitro diagnostic (IVD) test that has been modified to include the [employer] automated liquid handler. Its analytical performance characteristics have been determined by the director of gift planning and verified by [facility] in a manner consistent with CLIA [...] at the following links: For Healthcare Providers: https://www.fda.gov/media/238866/download For Patients: https://www.fda.gov/media/154224/download TEST LIMITATIONS Positive results are indicative of [...] system. For further details refer to the Gl[employer] TaqPath COVID-19 Combo Kit EUA submission (https://www.[employer].gov/media/138701/download). ----- Test performed by [facility], [address] [place] [address] CLIA# [id number] ?[id number] ? Guillaume Rodgers M.D., Ph.D., [facility] [place], Clinical Head Inspector And Center Marker Microbiology Nasopharyngeal swab / Unknown 10/15/2020 2:37 PM EST 10/15/2020 2:37 PM EST Narrative [facility] - 10/16/2020 12:14 PM EST Performed at [facility], [address] [place] [address], [place] Lic 0695, CLIA [id number] Ranjit Weiner PA-C MICROBIOLOGY - NERAL ORDERABLES [address] [address] documented in this encounter Visit Diagnoses Diagnosis Encounter for laboratory testing for COVID-19 virus documented in this encounter Care Teams Operations Scheduler Relationship Specialty Start Date End Date System, Provider Not In PCP - General 10/22/20 Alesia James MD [address] [place] [address] PCP - General 10/21/20 documented as of this encounter
== END 2025-02-14 13:19 | disposition home or self-care (01) ==
LOC: HO.HBST 11:06
PROVIDERS: PCP Internal Medicine; Visit Provider Counselor Mental Health
DX: F41.9 Anxiety disorder, unspecified (principal)
CPT/HCPCS: 90837

== ENCOUNTER 2025-02-15 08:00 | Outpatient (REF) | payer OTHER, SELFPAY ==
--- NOTE | ~2025-02-15 | US_ITS ---
EXAMINATION: US ABDOMEN COMPLETE WITH LIVER ELASTOGRAPHY HISTORY: E66.9 - Obesity, unspecified TECHNIQUE: Real-time grayscale ultrasound imaging of the abdomen was performed and images were reviewed. COMPARISON: There are no prior studies for comparison. FINDINGS: Liver: The right lobe of the liver measures 15.9 cm in size. The left lobe of the liver measures 8.6 cm in size. The liver demonstrates heterogeneous increased echotexture, consistent with steatosis. No focal mass or intrahepatic biliary ductal dilatation is identified. There is normal hepatopedal flow in the portal vein. Ultrasound elastography of the liver was performed with 10 separate measurements of the liver parenchyma with the patient in the supine position. Measurements were obtained approximately 2 cm below Manuelito's capsule and perpendicular to the capsule. Images are of satisfactory quality. The median shear wave velocity is 0.95 m/s. The interquartile range/median (IQR/median) is 0.16. Gallbladder and biliary tree: The gallbladder is surgically absent. The common bile duct is normal in caliber measuring 5 mm. Kidneys: Right kidney measures 10.4 cm in length. The left kidney measures 11.2 cm in length. The kidneys are unremarkable, without evidence of masses, hydronephrosis, or calculi. Pancreas: The pancreatic head, neck, and body are unremarkable. The pancreatic tail is obscured by bowel gas. Spleen: The spleen is normal in size and contour, measuring 9.3 cm in length. Abdominal aorta and inferior vena cava: The visualized portions of the abdominal aorta and inferior vena cava are normal in caliber. There is no free fluid in the abdomen. US/US abdomen comp w elastography IMPRESSION: Hepatic steatosis. The median shear wave velocity in the liver is 0.95 m/s, corresponding to a median liver stiffness of 2.7 kPa. The IQR/median value is 0.16. This is indicative of a poor quality data set, and the estimated liver stiffness may be unreliable. Findings are indicative of a normal elastography value with a low likelihood of severe fibrosis or cirrhosis. REFERENCE: Society of Radiologists in Ultrasound Liver Stiffness Thresholds (2019): LIVER STIFFNESS THRESHOLDS: *Shear wave velocity less than 1.3 m/s (Liver Stiffness equal or less than 5 kPa): High probability of being normal. *Shear wave velocity less than 1.7 m/s (Liver Stiffness less than 9 kPa): In the absence of other known clinical signs, rules out compensated advanced chronic liver disease. *Shear wave velocity between 1.7-2.1 m/s (Liver Stiffness 9-13 kPa): Suggestive of compensated advanced chronic liver disease but need further test for confirmation. *Shear wave velocity between 2.1-2.4 m/s (Liver Stiffness 13-17 kPa): Rules in compensated advanced chronic liver disease. *Shear wave velocity greater than 2.4 m/s (Liver Stiffness over 17 kPa): Suggestive of clinically significant portal hypertension. QUALITY OF DATA SET: *IQR/Median value equal or less than 0.15 implies a quality data set. *IQR/Median value over 0.15 implies a poor quality data set. SIGNIFICANT CHANGE FROM PRIOR EXAM: Significant change if liver stiffness measurement is 10% or greater from prior exam. OTHER CONSIDERATIONS: The stage of liver fibrosis may be overestimated in the setting of acute hepatitis, liver inflammation, elevated liver function tests, hepatic vascular congestion, obstructive cholestasis, non-fasting state, and infiltrative diseases such as amyloidosis and lymphoma. In some patients with NAFLD, the liver stiffness thresholds for compensated advanced chronic liver disease may be lower. In causes other than viral hepatitis and NAFLD, liver stiffness thresholds are not well established. Electronically signed by: Gume Purdy MD 02/15/2025 09:16 AM EDT
--- OUTSIDE RECORDS SUMMARY | 2025-02-15 08:09 | XMS_ITS | Encounter Summary ---
Author Organization [facility] Address [address] [place] [address] Care Team Providers Care Inside Channel Account Manager Name Role Phone System, Provider Not In Primary Care Provider Un available Alesia James MD Primary Care Provider [phone] Encounter Details Date Type Department Care Team (Latest Contact Info) Description 10/15/[address] Lab Requisition [facility] [address] Through [address] [place] [address] [address] [place] [address] Ranjit Weiner PA-C [address] [place] [address] Encounter for laboratory testing for COVID-19 virus [...] NOT DETECTED Not Detected 10/16/2020 12:14 PM [facility] Comment: ADDITIONAL INFORMATION The FRED COVID-19 RT-PCR Assay is Real-Time Reverse Flume Tender Polymerase Chain Reaction (life skills specialist-PCR) for the in vitro qualitative detection of three SARS-Cov-2 target sequences unique to the coronavirus disease 2019 (COVID-19). This is an Emergency Use Authorization (EUA) in vitro diagnostic (IVD) test that has been modified to include the Matchbin automated liquid handler. Its analytical performance characteristics have been determined by the aircraft steel fabricator and verified by [facility] in a manner consistent with CLIA [...] at the following links: For Healthcare Providers: https://www.fda.gov/media/901350/download For Patients: https://www.fda.gov/media/063352/download TEST LIMITATIONS Positive results are indicative of [...] system. For further details refer to the GPX Software TaqPath COVID-19 Combo Kit EUA submission (https://www.Network for Good.gov/media/246261/download). ----- Test performed by [facility], [address] [place] [address] CLIA# [id number] ?[id number] ? Guillaume Rodgers M.D., Ph.D., [facility], Clinical Manager [employer] Microbiology Nasopharyngeal swab / Unknown 10/15/2020 2:37 PM EST 10/15/2020 2:37 PM EST Narrative [facility] - 10/16/2020 12:14 PM EST Performed at [facility], [address] [place] [address], [place] Lic 0695, CLIA [id number] Ranjit Weiner PA-C MICROBIOLOGY - NERAL ORDERABLES [address] [address] documented in this encounter Visit Diagnoses Diagnosis Encounter for laboratory testing for COVID-19 virus documented in this encounter Care Teams Inside Channel Account Manager Relationship Specialty Start Date End Date System, Provider Not In PCP - General 10/22/20 Alesia James MD [address] [place] [address] PCP - General 10/21/20 documented as of this encounter
--- OUTSIDE RECORDS SUMMARY | 2025-02-15 08:09 | XMS_ITS | Clinical Summary ---
Author Organization [facility] Address [address] [place] [address] [address] [place] [address] Phone Care Team Providers Care Design Painter Name Role Phone Alesia James MD Primary Care Provider [phone] Allergies No known active allergies Medications omeprazole [...] [place] T[place] U[address] [id number] expiration 09/2022 Localized edema 08/18/2021 Acute tubular [...] Influenza Vaccine (#1) 2024 Insurance Care Teams Design Painter Relationship Specialty Start Date End Date Alesia James MD [address] [place], [place] PCP - General Internal Medicine 07/01/21
--- OUTSIDE RECORDS SUMMARY | 2025-02-15 08:09 | XMS_ITS | Clinical Summary ---
Author Organization [facility] Address [address] [place] [address] Care Team Providers Care Otc Clerk Name Role Phone System, Provider Not In [...] this topic Medical Devices Implanted Type Area Clam Grower Device Identifier Shelf Expiration Date Model / Serial / Lot [id number] Port Implantable Infusion Vaccess Ct 6fr Power Injectable - [id number] Implanted:Qty: 1 on 10/22/2020 by Bandar Miller MD at [facility] Access Port [employer] - [id number] 03/13/2022 [id number] / [id number] Care Teams Otc Clerk Relationship Specialty Start Date End Date System, Provider Not In PCP - General 10/22/20
--- OUTSIDE RECORDS SUMMARY | 2025-02-15 08:09 | XMS_ITS | Encounter Summary ---
Author Organization [facility] Address [address] [place] [address] Phone Care Team Providers Care Riding Coach Name Role Phone Alesia James MD Primary Care Provider [phone] Reason for Visit * Reason Comments Med Refill Encounter Details Date Type Department Care Team (Late st Contact Info) Description 05/21/2024 Refill [facility] [address] [place] [address] Eleno Knowles MD [address] [facility] [address] [place] [address] Social History Tobacco Use Types [...] on filedocumented in this encounter Care Teams Riding Coach Relationship Specialty Start Date End Date Alesia James MD [address] [place], [place] PCP - General Internal Medicine 07/01/21 documented as of this encounter
== END 2025-02-15 08:01 | disposition home or self-care (01) ==
LOC: HO.US 08:00
PROVIDERS: PCP Internal Medicine; Visit Provider Surgery
DX: E66.9 Obesity, unspecified (principal); Z68.36 Body mass index [BMI] 36.0-36.9, adult; E03.9 Hypothyroidism, unspecified; E11.9 Type 2 diabetes mellitus without complications
CPT/HCPCS: 76700; 76981

== ENCOUNTER → 2025-02-15 08:02 | Outpatient (BNV) | payer OTHER, SELFPAY | PROVIDERS: PCP Internal Medicine; Visit Provider Radiology Diagnostic Radiology | DX: K76.0 Fatty (change of) liver, not elsewhere classified (principal); Z90.49 Acquired absence of other specified parts of digestive tract | CPT/HCPCS: 76700; 76981 ==

== ENCOUNTER 2025-02-15 13:27 | Day surgery (SDC) | payer OTHER, SELFPAY ==
--- OUTSIDE RECORDS SUMMARY | 2025-01-15 13:03 | XMS_ITS | Encounter Summary ---
Author Organization [facility] Address [address] [place] [address] Phone Care Team Providers Care Securities Analyst Name Role Phone Alesia James MD Primary Care Provider Reason for Visit * Reason Comments Med Refill Encounter Details Date Type Department Care Team (Late st Contact Info) Description 05/21/2024 Refill [facility] [address] [place] [address] Eleno Knowles MD [address] [facility] [address] [place] [address] Social History Tobacco Use Types [...] on filedocumented in this encounter Care Teams Securities Analyst Relationship Specialty Start Date End Date Alesia James MD [address] [place], [place] PCP - General Internal Medicine 07/01/21 documented as of this encounter
--- OUTSIDE RECORDS SUMMARY | 2025-01-15 13:03 | XMS_ITS | Encounter Summary ---
Author Organization [facility] Address [address] [place] [address] Care Team Providers Care Otr Flatbed Driver Name Role Phone System, Provider Not In Primary Care Provider Un available Alesia James MD Primary Care Provider [phone] Encounter Details Date Type Department Care Team (Latest Contact Info) Description 10/15/2020 Lab Requisition [facility] Drive Through [address] [place] [address] [address] [place] [address] Ranjit Weiner PA-C [address] [place] [address] Encounter for laboratory testing for COVID-19 virus [...] NOT DETECTED Not Detected 10/16/2020 12:14 PM [facility] Comment: ADDITIONAL INFORMATION The FRED COVID-19 RT-PCR Assay is Real-Time Reverse Replanting Machine Crewman Polymerase Chain Reaction (repairer typewriter-PCR) for the in vitro qualitative detection of three SARS-Cov-2 target sequences unique to the coronavirus disease 2019 (COVID-19). This is an Emergency Use Authorization (EUA) in vitro diagnostic (IVD) test that has been modified to include the [employer] automated liquid handler. Its analytical performance characteristics have been determined by the pharmacist helper and verified by [facility] in a manner consistent with CLIA [...] at the following links: For Healthcare Providers: https://www.fda.gov/media/712200/download For Patients: https://www.fda.gov/media/213809/download TEST LIMITATIONS Positive results are indicative of [...] system. For further details refer to the [employer] TaqPath COVID-19 Combo Kit EUA submission (https://www.[employer].gov/media/908561/download). ----- Test performed by [facility], [address] [place] [address] CLIA# [id number] ?[id number] ? Guillaume Rodgers M.D., Ph.D., [facility] [place] Clinical Sole Molder Microbiology Nasopharyngeal swab / Unknown 10/15/2020 2:37 PM EST 10/15/2020 2:37 PM EST Narrative [facility] - 10/16/2020 12:14 PM EST Performed at [facility], [address] [place] [address], [place] Lic 0695, CLIA [id number] Ranjit Weiner PA-C MICROBIOLOGY - NERAL ORDERABLES [address] [address] documented in this encounter Visit Diagnoses Diagnosis Encounter for laboratory testing for COVID-19 virus documented in this encounter Care Teams Otr Flatbed Driver Relationship Specialty Start Date End Date System, Provider Not In PCP - General 10/22/20 Alesia James MD [address] [place] [address] PCP - General 10/21/20 documented as of this encounter
--- OUTSIDE RECORDS SUMMARY | 2025-01-15 13:03 | XMS_ITS | Clinical Summary ---
Author Organization [facility] Address [address] [place] [address] [address] [place] [address] Phone Care Team Providers Care Fueler Name Role Phone Alesia James MD Primary Care Provider [phone] Allergies No known active allergies Medications omeprazole [...] [place] U[address] [id number] expiration 09/2022 Localized edema 08/18/2021 Acute tubular [...] Exam 07/15/2021 Influenza Vaccine (#1) 2024 [place] [address] Care Teams Fueler Relationship Specialty Start Date End Date Alesia James MD [address] [place], [place] PCP - General Internal Medicine 07/01/21
--- OUTSIDE RECORDS SUMMARY | 2025-01-15 13:04 | XMS_ITS | Clinical Summary ---
Author Organization [facility] Address [address] [place] [address] Care Team Providers Care Defence Force Member Other Ranks Name Role Phone System, Provider Not In [...] this topic Medical Devices Implanted Type Area It Security Consultant Device Identifier Shelf Expiration Date Model / Serial / Lot [id number] Port Implantable Infusion Vaccess Ct 6fr Power Injectable - [id number] Implanted:Qty: 1 on 10/22/2020 by Bandar Miller MD at [facility] Access Port [employer] - [id number] 03/13/2022 [id number] / [id number] Care Teams Defence [employer] Member Other Ranks Relationship Specialty Start Date End Date System, Provider Not In PCP - General 10/22/20
--- NOTE | 2025-02-13 14:49 | P.CONAN_ITS ---
Documented by User: Tamera Murray NP 02/13/25 14:50 HPI - Anesthesia Eval Consult details Narrative: 44yo F for Upper Endoscopy PMFSH Active Problems Active Problems: All Active Problems Zinc deficiency (Acute) Vitamin B1 deficiency (Acute) Vitamin B12 deficiency (Acute) Vitamin D deficiency (Acute) BMI 36.0-36.9,adult (Acute) Obesity (Acute) Excessive daytime sleepiness (Acute) Sleep apnea (Acute) Snoring (Acute) Bilateral numbness and tingling of arms and legs (Acute) Low back pain (Acute) Physical exam (Acute) Screen for colon cancer (Acute) Migraines (Acute) Paresthesia (Acute) Skin lesion (Acute) Obesity (BMI 30-39.9) (Acute) Screening for breast cancer (Acute) Right leg pain (Acute) Right thigh pain (Acute) Meralgia paresthetica of right side (Acute) Hemorrhoids (Acute) Physical exam (Acute) Encounter for removal of tunneled central venous catheter (CVC) with port (Acute) Class 1 obesity with body mass index (BMI) of 32.0 to 32.9 in adult (Acute) Hospital discharge follow-up (Acute) Pneumonia (Acute) Port-A-Cath in place (Acute) Hemorrhoids with complication (Acute) COVID-19 (Acute) Diabetes mellitus (Acute) NAVNEET (generalized anxiety disorder) (Acute) Moderate recurrent major depression (Acute) Blurry vision (Acute) Essential hypertension (Acute) Allergic rhinitis (Acute) Hypothyroid (Acute) Mixed hyperlipidemia (Acute) GERD (gastroesophageal reflux disease) (Acute) Past Medical History Medical History (Updated 01/27/25 @ 17:27 by Davy Pillai MD) BMI 36.0-36.9,adult Obesity Anemia Sleep apnea Port-A-Cath in place Hemorrhoids with complication COVID-19 LAXMI (acute kidney injury) Diabetes mellitus NAVNEET (generalized anxiety disorder) Moderate recurrent major depression Blurry vision Essential hypertension Allergic rhinitis Hypothyroid Mixed hyperlipidemia GERD (gastroesophageal reflux disease) Family History Family History Father Diabetes Hypertension Glaucoma Stroke Anxiety Mother Diabetes Hypertension Breast cancer History of mastectomy Depression Family/Other FH: mental illness Family history of problems with anesthesia: No Surgical History Surgical History History of hemorrhoidectomy (~08/24/22) Hx of colonoscopy History of esophagogastroduodenoscopy (EGD) History of surgery History of eye surgery History of removal of both ovaries History of hysterectomy History of cholecystectomy History of tonsillectomy History of tubal ligation History of appendectomy History of Problems with Anesthesia: No Social History Social History (Updated 12/26/24 @ 15:19 by Octavia Palmer CMA) Household Members Other:: [id number] w/special needs Housing: House Are you a primary intensive care unit registered nurse to a significant other at home: Yes (mother coming to assist patient post-op @ home) Do you presently have visiting nurse or other home services: No Alcohol intake: current Alcohol intake frequency: holidays/special occasions only Comment: medicated with po tylenol and oxycodone Patient Tobacco Use Status: Never used Tobacco e-Cigarette/Vaping Use: Never Used Second Hand Smoke Exposure: No Advance Directives: No Advance Directives Information Provided: Yes service: No Current occupational status: employed Current occupational exposures/hazards: No Cognitive needs: No Hearing needs: No Vision needs: Yes Meds Allergies Allergy/AdvReac Type Severity Reaction Status Date / Time Seasonal Allergies Allergy Mild Unknown Verified 01/11/25 08:15 Assessment and Plan Assessment Anesthesia Assessment: Chart Reviewed Final Anesthetic Review Family History of Problems with Anesthesia: No History of Problems with Anesthesia: No Documented by User: Tanya Knowles MD 02/15/25 13:48 COUNTS INCLUDE 234 BEDS AT THE [facility] Past Medical History Medical History (Updated 01/27/25 @ 17:27 by Davy Pillai MD) BMI 36.0-36.9,adult Obesity Anemia Sleep apnea Port-A-Cath in place Hemorrhoids with complication COVID-19 LAXMI (acute kidney injury) Diabetes mellitus NAVNEET (generalized anxiety disorder) Moderate recurrent major depression Blurry vision Essential hypertension Allergic rhinitis Hypothyroid Mixed hyperlipidemia GERD (gastroesophageal reflux disease) Family History Family History Father Diabetes Hypertension Glaucoma Stroke Anxiety Mother Diabetes Hypertension Breast cancer History of mastectomy Depression Family/Other FH: mental illness Surgical History Surgical History History of hemorrhoidectomy (~08/24/22) Hx of colonoscopy History of esophagogastroduodenoscopy (EGD) History of surgery History of eye surgery History of removal of both ovaries History of hysterectomy History of cholecystectomy History of tonsillectomy History of tubal ligation History of appendectomy Social History Social History (Updated 12/26/24 @ 15:19 by Octavia Palmer CMA) Household Members Other:: [id number] w/special needs Housing: House Are you a primary intensive care unit registered nurse to a significant other at home: Yes (mother coming to assist patient post-op @ home) Do you presently have visiting nurse or other home services: No Alcohol intake: current Alcohol intake frequency: holidays/special occasions only Comment: medicated with po tylenol and oxycodone Patient Tobacco Use Status: Never used Tobacco e-Cigarette/Vaping Use: Never Used Second Hand Smoke Exposure: No Advance Directives: No Advance Directives Information Provided: Yes service: No Current occupational status: employed Current occupational exposures/hazards: No Cognitive needs: No Hearing needs: No Vision needs: Yes Meds Allergies Allergy/AdvReac Type Severity Reaction Status Date / Time Seasonal Allergies Allergy Mild Unknown Verified 01/11/25 08:15 Exam Airway Mallampati Class: III TM Dist: >3cm Neck ROM: Full Heart: rrr Lungs: cta Assessment and Plan Assessment Anesthesia Assessment: Anesthesia Plan Discussed Final Anesthetic Review NPO: Yes ASA Class: III Final Preanesthetic Review: No Changes in Pt Med Stat, Meds/Allgs Chart Reviewed and Consent Obtained/Reviewed Patient Risk: Intermediate Procedure Risk: Intermediate Anesthetic Plan Anesthetic Plan: MAC: Disposition: Standard PACU
[2025-02-15 13:45] VITALS: BP 145/83; PULSE 105; RESP 16; TEMP 36.4; O2SAT 99; BMI 35.0
[2025-02-15] MEDS: Lactated Ringers 1,000 ML 80 ML IVCONT (14:01)
--- NOTE | 2025-02-15 14:07 | P.HPSUR_ITS ---
Pre-Procedural Eval Section A - 24 Hr Update-Section A only Date of Service: 02/15/25 The patient is an INPATIENT: No The patient has been examined within 24 hours of the surgical procedure. The History & Physical has been completed within 30 days and I have reviewed it.: Yes Section B - Complete if H&P > 30 days Chief Complaint: Morbid (severe) obesity due to excess calories Details of Present Illness: GERD Relevant Family History (Specify if Yes): No Relevant Social History: None Present Medications: None Medical History: No relevant PMH History of Previous Operations: No relevant previous surgery Allergies: Allergies Allergy/AdvReac Type Severity Reaction Status Date / Time Seasonal Allergies Allergy Mild Unknown Verified 02/15/25 13:50 Review of Systems Sugical H&P ROS: Negative: Constitution, Cardiovascular, Respiratory, Neurological, Psychiatric, Hem-Onc, Allergic/Immunologic, Gastrointestinal, Genitourinary, Musculoskeletal, Integumentary, Endocrine and Eyes/Ears/Nose /Throat Exam Surgical H&P Exam: Normal: HEENT, Normal: Heart, Normal: Lungs, Normal: Extremities, Normal: Abdomen, Normal: Skin and Normal: Neurological Plan Diagnosis/Plan: Unchanged (EGD to assess etiology of GERD. Risks of bleeding and perforation were discussed with the patient and she is in agreement with the plan.) I have reviewed the history and physical and performed a pertinent physical examination on my patient. No changes have occurred unless specified. Time Spent With Patient Time: Total time managing care of this patient today ____ minutes.
--- NOTE | 2025-02-15 14:08 | PM.OP ---
Brief Operative Note Date of Service: 02/15/25 Pre-op diagnosis: GERD Post-op diagnosis: same Procedure: PROCEDURE DATE: 02/15/2025 PREOPERATIVE DIAGNOSIS: GERD POSTOPERATIVE DIAGNOSIS: ?Same as above. 1) small diaphragmatic hernia, 2) gastric polyps PROCEDURE: Rhajtfug-zwfsdv-sphqzgsjjptp with biopsies Surgeon: ?Kamari Pillai M.D.. Ph.D. Stitcher Utility: None ? Anesthesia: IV sedation Estimated blood loss: ?Minimal FINDINGS AND PROCEDURE: ? OPERATIVE INDICATIONS: ?The patient is a 44 year old female known to me who is interested in bariatric surgery. The patient has GERD. Based on this information I recommended an upper endoscopy to evaluate the patient's symptoms. Risks and complications of the surgery were discussed with the patient in advance particularly the possibility of perforation or bleeding that may require surgical intervention. The patient understood the risks and was in agreement with the plan. ? PROCEDURE: After informed consent was obtained by the patient, the patient was ?transferred to the Operating Room and was placed in the supine position.? After successful induction of IV sedation, a mouth block was inserted and the patient was placed in the left lateral decubitus position. An upper endoscopy was performed next, the oropharynx and esophagus appeared within the normal limits. There was a small diaphragmatic hernia. The z-line was smooth. Two biopsies were obtained from the distal esophagus 2-3 cm proximal to the GE junction and two additional biopsies from the GE junction. The stomach was entered and it appeared to be of normal size. There were a few scattered small, benign-appearing gastric polyps and one of them was biopsied. There was no stricture or ulcer. A biopsy was obtained from the gastric fundus and the antrum. No significant bleeding was noted from any of the biopsy sites. retroflexion of the scope confirmed the presence of a small diaphragmatic hernia. The scope was then advanced into the duodenum which appeared to be normal as well. At that point the duodenum ?and the stomach were decompressed and the scope was withdrawn from the patient's mouth. The patient extubated and was transferred in stable condition to the Recovery Room for further care. I was present and performed all steps of the procedure. There were no residents to assist with this case. Kamari Pillai M.D., Ph.D. Surgeon: Davy Pillai MD Anesthesia: MAC Was an Stitcher Utility used for this Procedure?: No Estimated blood loss (mL): 0 IV fluids (mL): 400 Urine output (mL): 0 (No Seth to record output) Pathology: other (1) antrum x1, 2) fundus x1, 3) GE junction x2, 4) distal esophagus x2, 5) gastric polyp x1) Condition: stable Disposition: PACU
[2025-02-15 14:45] VITALS: BP 129/86; PULSE 91; RESP 16; TEMP 36.6; O2SAT 96
[2025-02-15 15:00] VITALS: BP 141/79; PULSE 94; RESP 16; TEMP 36.6; O2SAT 100
== END 2025-02-15 15:25 | disposition home or self-care (01) ==
PROVIDERS: PCP Internal Medicine; Visit Provider Surgery
PROC: 0DJ08ZZ Inspection of Upper Intestinal Tract, Via Natural or Artificial Opening Endoscopic (ICD-10-PCS; CPT 43235; principal; 2025-02-15 14:40)
DX: K21.9 Gastro-esophageal reflux disease without esophagitis (principal); E66.01 Morbid (severe) obesity due to excess calories; Z68.36 Body mass index [BMI] 36.0-36.9, adult; K31.7 Polyp of stomach and duodenum; K44.9 Diaphragmatic hernia without obstruction or gangrene; N17.9 Acute kidney failure, unspecified; I10 Essential (primary) hypertension; E78.2 Mixed hyperlipidemia; D64.9 Anemia, unspecified; E11.9 Type 2 diabetes mellitus without complications; G47.30 Sleep apnea, unspecified; J30.2 Other seasonal allergic rhinitis; F33.1 Major depressive disorder, recurrent, moderate; F41.1 Generalized anxiety disorder; Z79.899 Other long term (current) drug therapy; Z95.828 Presence of other vascular implants and grafts; Z98.890 Other specified postprocedural states
CPT/HCPCS: 43239; 88305; 88342; J1100; J2003; J2250; J2704

== ENCOUNTER → 2025-02-15 13:27 | Outpatient (BNV) | payer OTHER, SELFPAY | PROVIDERS: PCP Internal Medicine; Visit Provider Surgery | DX: K31.7 Polyp of stomach and duodenum (principal) | CPT/HCPCS: 43239 ==

== ENCOUNTER 2025-03-04 14:11 | Outpatient (AMB) | payer OTHER, SELFPAY ==
--- OUTSIDE RECORDS SUMMARY | 2025-03-04 14:15 | XMS_ITS | Encounter Summary ---
Author Organization [facility] Address [address] [place] [address] Phone Care Team Providers Care Director Geothermal Operations Name Role Phone Alesia James MD Primary Care Provider [phone] Reason for Visit * Reason Comments Med Refill Encounter Details Date Type Department Care Team (Late st Contact Info) Description 05/21/2024 Refill [facility] [address] [place] [address] Eleno Knowles MD [address] [facility] [address] [place] [address] Social History Tobacco Use Types [...] filedocumented in this encounter Care Teams Director Geothermal Operations Relationship Specialty Start Date End Date Alesia James MD [address] [place], [place] PCP - General Internal Medicine 07/01/21 documented as of this encounter
--- OUTSIDE RECORDS SUMMARY | 2025-03-04 14:15 | XMS_ITS | Encounter Summary ---
Author Organization [facility] Address [address] [place] [address] Care Team Providers Care Recycling Assistant Name Role Phone System, Provider Not In Primary Care Provider Un available Alesia James MD Primary Care Provider [phone] Encounter Details Date Type Department Care Team (Latest Contact Info) Description 10/15/2020 Lab Requisition [facility] [address] Through [address] [place] [address] [address] [place] [address] Ranjit Weiner PA-C [address] [place] [address] Encounter for laboratory testing for COVID-19 virus Social History Tobacco Use Types Packs/Day Years Used Date Smoking Tobacco: Never Assessed Comments Unknown Sex and Gender Information Value Date Recorded Sex Assigned at Not on file Legal Sex Unknown 09/11/2020 2:01 PM EDT Gender Identity Not on file Sexual Orientation [...] Priority Date/Time Associated Diagnosis Comments COVID-19 RT-PCR ([facility] LAB) Routine 10/15/2020 2:37 PM EST Encounter for laboratory testing for COVID-19 virus [ICD-10-CM] documented in this encounter Results * COVID-19 RT-PCR ([facility]) (10/15/2020 2:37 PM EST) COVID-19 RT-PCR SARS-COV-2 NOT DETECTED Not Detected 10/16/2020 12:14 PM EST [facility] Comment: ADDITIONAL INFORMATION The FRED COVID-19 RT-PCR Assay is Real-Time Reverse Seed Corn Manager Production Polymerase Chain Reaction (credit administrator-PCR) for the in vitro qualitative detection of three SARS-Cov-2 target sequences unique to the coronavirus disease 2019 (COVID-19). This is an Emergency Use Authorization (EUA) in vitro diagnostic (IVD) test that has been modified to include the DesignLine automated liquid handler. Its analytical performance characteristics have been determined by the transmitter supervisor and verified by [facility] in a manner consistent with CLIA requirements. [...] at the following links: For Healthcare Providers: https://www.fda.gov/media/546360/download For Patients: https://www.fda.gov/media/656001/download TEST LIMITATIONS Positive results are indicative of [...] sample is recommended. The performance of the Chunk MotoPath COVID-19 Combo Kit was established using nasopharyngeal swab, nasopharyngeal aspirate, and bronchoalveolar lavage (BAL) specimens. The limit of detection for the assay was determined to be 0.75copies/uL in the specimens of nasopharyngeal swab. Other specimen types may be need for further validation before testing on this system. For further details refer to the [employer] COVID-19 Combo Kit EUA submission (https://www.OVIA.gov/media/011780/download). ----- Test performed by [facility], [address] [place] [address] CLIA# [id number] ?[id number] ? Guillaume Rodgers M.D., Ph.D., [facility], Clinical Bad Credit Collector Microbiology Nasopharyngeal swab / Unknown 10/15/2020 2:37 PM EST 10/15/2020 2:37 PM EST Narrative [facility] - 10/16/2020 12:14 PM EST Performed at [facility], [address] [place] [address], [place] Lic 0695, CLIA [id number] Ranjit Weiner PA-C MICROBIOLOGY - GENERAL OR DERABLES Final Result [address] [address] documented in this encounter Visit Diagnoses Diagnosis Encounter for laboratory testing for COVID-19 virus documented in this encounter Care Teams Recycling Assistant Relationship Specialty Start Date End Date System, Provider Not In PCP - General 10/22/20 Alesia James MD [address] [place] [address] PCP - General 10/21/20 documented as of this encounter
--- OUTSIDE RECORDS SUMMARY | 2025-03-04 14:15 | XMS_ITS | Clinical Summary ---
Author Organization [facility] Address [address] [place] [address] Care Team Providers Care Wood Floor Layer Name Role Phone System, Provider Not In Primary Care Provider Un available Allergies No known active allergies Medications fenofibrate (LOFIBRA) 54 MG tablet Take 54 mg by mouth daily. Active levothyroxine (SYNTHROID, LEVOTHROID) 200 MCG tablet Take 200 mcg by mouth daily on an empty stomach. Active atorvastatin (LIPITOR) 20 MG tablet Take 20 mg by mouth daily. Active OMEprazole (PriLOSEC) 20 MG capsule Take 20 mg by mouth every morning before breakfast. Active hydrochlorothia zide (MICROZIDE) 12.5 MG capsule Take 25 mg [...] this topic Medical Devices Implanted Type Area Ware Cleaner Device Identifier Shelf Expiration Date Model / Serial / Lot [id number] Port Implantable Infusion Vaccess Ct 6fr Power Injectable - [id number] Implanted:Qty: 1 on 10/22/2020 by Bandar Miller MD at [facility] Access Port [employer] - [id number] 03/13/2022 [id number] / [id number] Insurance [facility] Care Teams Wood Floor Layer Relationship Specialty Start Date End Date System, Provider Not In PCP - General 10/22/20
--- OUTSIDE RECORDS SUMMARY | 2025-03-04 14:15 | XMS_ITS | Clinical Summary ---
Author Organization [facility] Address [address] [place] [address] [address] [place] [address] Phone Care Team Providers Care Heavy Equipment Operator/Paver Name Role Phone Alesia James MD Primary Care Provider [phone] Allergies No known active allergies Medications omeprazole [...] [place] T[place] U[address] [id number] expiration 09/2022 Localized edema 08/18/2021 Acute tubular [...] Maintenance Due Date Last Done Comments Hepatitis B Vaccine (1 of 3 - 19+ 3-dose series) 04/02 Pneumococcal Vaccine: Peds ( 0 to 5 Years) and At-Risk Patients (6 to 49 Years) (1 of 2 - PCV) 1998 Diabetes: Hemoglobin A1C 07/15/2021 Diabetes: Ophthalmology Exam 07/15/2021 Diabetes: Pedal Pulse Checked 07/15/2021 Diabetes: Sensory Foot Exam 07/15/2021 Diabetes: Visual Foot Exam 07/15/2021 Influenza Vaccine (Season Ended) [address] [place] [address] Care Teams Heavy Equipment Operator/Paver Relationship Specialty Start Date End Date Alesia James MD [address] [facility] [address] [place], [place] PCP - General Internal Medicine 07/01/21
--- NOTE | 2025-03-04 14:16 | A.OFFPC_ITS ---
Vital Signs 03/04/25 14:17 Height 5 ft 6 in Weight 220 lb BMI 35.5 BP 112/70 Blood Pressure Location Lt brachial Position Sitting Intake Visit Reasons: dm Intake Note: Patient here for a follow up DM Assistant Chief Engineer Required: No Accompanied by: Self / Same As Patient Allergies Seasonal Allergies Allergy (Mild, Verified 03/04/25 14:22) Unknown Medication List - Last Reconciled 03/04/25 by Alesia Ac MD amitriptyline 50 mg (2 x 25 mg) PO BEDTIME 90 days cholecalciferol (vitamin D3) 125 mcg PO DAILY cyclobenzaprine 5 - 10 mg (1 - 2 x 5 mg) PO BID PRN 30 days diclofenac sodium 1% (Arthritis Pain (diclofenac)) 2 grams topical QID PRN 2 weeks escitalopram oxalate 20 mg PO DAILY 90 days fluticasone propionate 50 mcg/actuation (Flonase Allergy Relief) 1 spray intranasal DAILY levothyroxine 175 mcg PO DAILY 90 days mecobalamin (vitamin B12) 1,000 mcg sublingual DAILY phentermine 37.5 mg PO DAILY sumatriptan succinate 50 - 100 mg orally at onset of headache, may repeat in 2 hrs PRN; max 2 tabs per day or 4 tabs/week (may take with Ibuprofen) 30 days thiamine HCl (vitamin B1) 100 mg PO DAILY zinc gluconate 10 mg PO DAILY Tobacco use date assessed: 03/04/25 Dental Screening Dental Screen Date: 03/04/25 Did you have a dental visit in the last 12 months?: No Did you have a dental problem in the last 6 months where you did not have access to dental care?: No Was dental information given to patient?: Patient has dentist HPI HPI Comments History of Present Illness Details The patient is a 44-year-old female presenting with breast pain. She describes a tender sensation primarily in the left breast and reports increased sensitivity in her nipples, with occasional pain worsened by touch. This condition has been a persistent issue, and she indicates that it is frequently more significant on the left side. A diagnostic mammogram and ultrasound are being considered given a history of previous imaging from last year. In addition, the patient manages seasonal allergies and mental health through a regimen including amitriptyline and escitalopram. Her endocrine disorder is addressed with levothyroxine. She is using phentermine for weight management, though challenges with her dietary regimen and a temporary weight gain were discussed. A history of migraines is acknowledged, with episodes ameliorated by timely sumatriptan administration. [facility] Medical History (Updated 03/04/25 @ 15:02 by Alesia Ac MD) BMI 36.0-36.9,adult Obesity Anemia Sleep apnea Port-A-Cath in place Hemorrhoids with complication COVID-19 LAXMI (acute kidney injury) Diabetes mellitus NAVNEET (generalized anxiety disorder) Moderate recurrent major depression Blurry vision Essential hypertension Allergic rhinitis Hypothyroid Mixed hyperlipidemia GERD (gastroesophageal reflux disease) Surgical History History of hemorrhoidectomy (~08/24/22) Hx of colonoscopy History of esophagogastroduodenoscopy (EGD) History of surgery History of eye surgery History of removal of both ovaries History of hysterectomy History of cholecystectomy History of tonsillectomy History of tubal ligation History of appendectomy Family History Father Diabetes Hypertension Glaucoma Stroke Anxiety Mother Diabetes Hypertension Breast cancer History of mastectomy Depression Family/Other FH: mental illness Social History Household Members Other:: [id number] w/special needs Housing: House Are you a primary intensive care anaesthetist to a significant other at home: No Do you presently have visiting nurse or other home services: No Alcohol intake: current Alcohol intake frequency: holidays/special occasions only Comment: medicated with po tylenol and oxycodone Patient Tobacco Use Status: Never used Tobacco e-Cigarette/Vaping Use: Never Used Second Hand Smoke Exposure: No service: No Current occupational status: employed Current occupational exposures/hazards: No Cognitive needs: No Hearing needs: No Vision needs: Yes Questionnaire PHQ-9 Over the last 2 weeks, how often have you been bothered by any of the following problems? 1. Little interest or pleasure in doing things: not at all 2. Feeling down, depressed, or hopeless: several days 3. Trouble falling or staying asleep, or sleeping too much: not at all 4. Feeling tired or having little energy: not at all 5. Poor appetite or overeating: not at all 6. Feeling bad about yourself - or that you are a failure or have let yourself or your family down: not at all 7. Trouble concentrating on things, such as reading the newspaper or watching television: not at all 8. Moving or speaking so slowly that other people could have noticed. Or the opposite - being so fidgety or restless that you have been moving around a lot more than usual: not at all 9. Thoughts that you would be better off or of hurting yourself in some way: not at all Total score: 1 Source: Developed by Drs. Gume Coronado, Lore Han, Julius sarmiento nd colleagues, with an educational kurt from [employer]. Thrive Questionnaire Date Thrive assessed: 03/04/25 I am a: Patient What is your living situation today?: I have a steady place to live Within the past 12 months, did the food you bought not last and you didn't have the money to get more?: Never true Within the past 12 months, did you worry whether your food would run out before you got money to buy more?: Never true Do you have trouble paying for medicines?: No Do you have trouble getting transportation to medical appointments?: No Do you have trouble paying your heating and electricity bill?: No Do you have trouble taking care of your child, family member or friend?: No Do you have trouble with day-to-day activities such as bathing, preparing meals, shopping, managing finances, etc.?: No Are you currently unemployed and looking for a job?: No Are you interested in more education?: No Please select the resources that you would like help with: None Currently or been in a relationship where the following occur: No concerns reported THRIVE Score: 0 AUDIT C Alcohol Use Questionnaire (AUDIT-C) 1. How often do you have a drink containing alcohol?: Monthly or less 2. How many drinks containing alcohol do you have on a typical day when you are drinking?: 1 or 2 3. How often do you have six or more drinks on one occasion?: Never Total Score: 1 NAVNEET-7 AMB Questionnaire NAVNEET-7 Date NAVNEET - 7 assessed: 03/04/25 Feeling nervous, anxious, or on edge: 1 = Several days Not being able to stop or control worryin = Not at all Worrying too much about different things: 0 = Not at all Trouble relaxin = Not at all Being so restless that it is hard to sit still: 0 = Not at all Becoming easily annoyed or irritable: 0 = Not at all Feeling afraid as if something awful might happen: 0 = Not at all Total NAVNEET-7 score (0-4 normal; 5-9 mild; 10-14 moderate; 15-21 severe): 1 Source: Developed by Drs. Gume Coronado, Lore Han, Julius Dias and colleagues, with an educational kurt from [employer]. Review of Systems Const All systems reviewed & are unremarkable except as noted in HPI and below Card Denies chest pain at rest, Denies chest pain with activity, Denies edema, Denies irregular heart rhythm, Denies claudication, Denies dyspnea, Denies dyspnea on exertion, Denies orthopnea, Denies paroxysmal nocturnal dyspnea and Denies slow heart rate Resp Denies cough, Denies dyspnea and Denies dyspnea on exertion GI Denies abdominal pain, Denies change in bowel habits, Denies excessive flatus, Denies nausea and Denies vomiting Skin/Breast Reports breast pain Physical exam (Primary Care) Vital Signs: Last Vital Signs BP 112/70 03/04/25 14:17 BMI result Body Mass Index 35.5 BMI Assessment/Plan discussion: High BMI High, discussed plan: lifestyle, weight reduction, dietary and physical activity Tobacco/Smoking Status: Tobacco use Status Tobacco use date assessed 03/04/25 03/04/25 14:25 Patient Tobacco Use Status Never used Tobacco 03/04/25 14:21 e-Cigarette/Vaping Use Never Used 03/04/25 14:21 PHQ-9: PHQ-9 Score PHQ-9: Total score 1 03/04/25 14:25 Thrive Assessment: Date of Thrive Assessment Date Thrive assessed 03/04/25 03/04/25 14:21 Currently or been in a relationship where the following occur: No concerns reported Chest Breast/axilla inspection: normal inspection of the breasts and normal inspection of the axillae Breast/axilla palpation: normal palpation of the axillae and abnormal palpation of the breast (Left breast pain at 03:00 and right breast pain at 09:00) Resp Effort & Inspection: normal respiratory effort Auscultation: clear to auscultation bilaterally Cardio Jugular venous distension: no JVD Rate: regular rate Rhythm: regular rhythm Heart sounds: S1 normal heart sound present and S2 normal heart sound present Extrem General: Yes full ROM Psych Appearance: grossly normal Coding Level of Care Code Est Pt Level 4 (56251) Complex EM visit Add On G2211 Diagnoses Breast pain, right N64.4 Breast pain, left N64.4 Migraines G43.909 Moderate recurrent major depression F33.1 Hypothyroidism, unspecified type E03.9 Hypothyroidism type: unspecified Time Spent (min) 23 Assessment & Plan Assessment & Plan (1) Breast pain, right: Comment: At 9 o'clock Code(s): N64.4 - Mastodynia Category: Medical (2) Breast pain, left: Comment: At 3 o'clock Code(s): N64.4 - Mastodynia Category: Medical (3) Migraines: Code(s): G43.909 - Migraine, unspecified, not intractable, without status migrainosus Category: Medical (4) Moderate recurrent major depression: Code(s): F33.1 - Major depressive disorder, recurrent, moderate Category: Medical (5) Hypothyroid: Code(s): E03.9 - Hypothyroidism, unspecified Category: Medical Qualifiers: Hypothyroidism type: unspecified Qualified Code(s): E03.9 - Hypothyroidism, unspecified Plan To address the breast pain, a diagnostic mammogram and ultrasound will be ordered to provide further insight into the espoused tenderness and sensitivity, especially affecting the left breast. Major depressive disorder will be managed with ongoing pharmacotherapy involving amitriptyline and escitalopram. Further endocrine and metabolic evaluations are scheduled for October to reassess cholesterol levels, vitamin deficiencies, and thyroid function. The patient is to continue weight management strategies utilizing phentermine, with a focus on resuming adequate dietary protein intake. Migraines will be treated with sumatriptan at the onset for relief. The patient should adjust phentermine intake to avoid potential insomnia. Scheduling of imaging should align with her new work commitments. Patient was informed and verbally consented to the use of an ambient scribe for clinic note documentation during this visit. I discussed the importance of proceeding with a diagnostic mammogram and ultrasound due to the reported breast pain and sensitivity, and the previous mammogram recommendation. I explained the goals for re-evaluating her metabolic parameters including cholesterol and vitamin levels in October. Information was provided regarding phentermine's side effects with advice on morning administration to minimize insomnia. The importance of dietary adherence for weight loss and managing phentermine was conveyed, alongside continued pharmacologic management for depression and thyroid function. The patient was also informed to relax and follow instructions regarding the imaging schedule, taking her job concerns into consideration. No new medications or surgeries were suggested during this consultation. Orders: Orders Lipid Panel 8 Months E78.5 - Hyperlipidemia, unspecified Comprehensive [place]. Panel Fast 8 Months G47.19 - Other hypersomnia US breast LT limited Today N64.4 - Mastodynia Vitamin D 25-OH Total 8 Months E55.9 - Vitamin D deficiency, unspecified Thyroid Stimulating Hormone 8 Months E03.9 - Hypothyroidism, unspecified MM diagnostic mammo BI Today N64.4 - Mastodynia US breast RT limited Today N64.4 - Mastodynia Patient Instructions: - Schedule and attend ordered diagnostic mammogram and ultrasound. - Continue taking prescribed medications as directed, including amitriptyline, escitalopram, and levothyroxine. - Take phentermine in the morning to help avoid insomnia. - Resume dietary protein intake to support weight management efforts. - Use sumatriptan as needed for migraine relief. - Follow up with blood work and repeat evaluations as planned in October. - Adhere to recommendations concerning imaging and wellness examinations.
[2025-03-04 14:17] VITALS: BP 112/70; BMI 35.5
== END 2025-03-04 14:34 | disposition home or self-care (01) ==
LOC: HO.HMCH 14:12
PROVIDERS: PCP Internal Medicine; Visit Provider Internal Medicine
DX: N64.4 Mastodynia (principal); G43.909 Migraine, unspecified, not intractable, without status migrainosus; F33.1 Major depressive disorder, recurrent, moderate; E03.9 Hypothyroidism, unspecified

== ENCOUNTER → 2025-03-04 14:11 | Outpatient (BNVA) | payer OTHER, SELFPAY | PROVIDERS: PCP Internal Medicine; Visit Provider Internal Medicine | DX: N64.4 Mastodynia (principal); G43.909 Migraine, unspecified, not intractable, without status migrainosus; F33.1 Major depressive disorder, recurrent, moderate; E03.9 Hypothyroidism, unspecified | CPT/HCPCS: 99212 ==

== ENCOUNTER 2025-04-18 11:20 | Outpatient (REF) | payer OTHER, SELFPAY ==
--- NOTE | ~2025-04-18 | US_ITS ---
EXAMINATION: MM DIAGNOSTIC DIGITAL BREAST TOMOSYNTHESIS, BILATERAL Bilateral Limited ultrasound. CLINICAL INFORMATION: Bilateral breast pain. COMPARISON: Mammography: Comparison is made with relevant prior exams. TECHNIQUE: Digital breast mammography with tomosynthesis is performed in both the craniocaudal and mediolateral oblique views along with computer-aided detection (CAD). FINDINGS: There are scattered areas of fibroglandular density (ACR BI-RADS breast composition Category b). Bilateral triangle markers at sites of patients pain without underlying abnormal findings. There are no significant masses, abnormal calcifications, or other abnormalities. Targeted color doppler ultrasound scanning in the left breast 11-4:00 and areola demonstrates normal fibroglandular breast tissue. No sonographic abnormal finding at site of patients pain. Taregeted color doppler ultrasound scanning from 8-1:00 at sites of patients pain demonstrates normal fibroglandular breast tissue. No sonographic abnormal finding is seen. Results are provided to the patient at time of visit by the technologist. US/US breast BI limited mamm only IMPRESSION: No mammographic or sonographic abnormal finding to account for the patients bilateral breast pain. Recommend clinical evaluation and followup. ASSESSMENT: BI-RADS BI-RADS 1 - Negative RECOMMENDATION: 1 year F/U This patient's information was entered into a reminder system with a target due date for their next mammogram. Electronically signed by: Marlena Soliman DO 04/18/2025 12:21 PM EDT
--- OUTSIDE RECORDS SUMMARY | 2025-04-18 13:32 | XMS_ITS | Encounter Summary ---
Author Organization [facility] Address [address] [place] [address] Phone Care Team Providers Care Edging Machine Catcher Name Role Phone Alesia James MD Primary Care Provider [phone] Reason for Visit * Reason Comments Med Refill Encounter Details Date Type Department Care Team (Late st Contact Info) Description 05/21/2024 Refill [facility] [address] [place] [address] Eleno Knowles MD [address] [facility] [address] [place] [address] Social History Tobacco Use Types [...] on filedocumented in this encounter Care Teams Edging Machine Catcher Relationship Specialty Start Date End Date Alesia James MD [address] [place], [place] PCP - General Internal Medicine 07/01/21 documented as of this encounter
== END 2025-04-18 11:21 | disposition home or self-care (01) ==
LOC: HO.MAMMO 11:20
PROVIDERS: PCP Internal Medicine; Visit Provider Internal Medicine
DX: N64.4 Mastodynia (principal)
CPT/HCPCS: 76642; 77062; 77066

== ENCOUNTER → 2025-04-18 12:00 | Outpatient (BNV) | payer OTHER, SELFPAY | PROVIDERS: PCP Internal Medicine; Visit Provider Internal Medicine | DX: N64.4 Mastodynia (principal) | CPT/HCPCS: 76642; 77062; 77066 ==

== ENCOUNTER 2025-08-16 14:30 | Outpatient (REF) | payer OTHER, SELFPAY ==
[2025-08-17 10:04] LABS: Chlamydia pneumoniae PCR Not Detected (Not Detect.); Coronavirus 229E PCR Not Detected (Not Detect.); Coronavirus HKU1 PCR Not Detected (Not Detect.); Coronavirus NL63 PCR Not Detected (Not Detect.); Coronavirus OC43 PCR Not Detected (Not Detect.); RSV PCR Not Detected (Not Detect.); Rhino/Enterovirus PCR Detected (Not Detect.)
[2025-08-17 10:05] LABS: Influenza A H1 PCR Not Detected (Not Detect.); Influenza A H1-2009 PCR Not Detected (Not Detect.); Influenza A H3 PCR Not Detected (Not Detect.); SARS-CoV-2 PCR Not Detected (Not Detect.)
== END 2025-08-16 14:31 | disposition home or self-care (01) ==
LOC: HO.LNP 14:30
PROVIDERS: PCP Internal Medicine; Visit Provider Physician Assistant
DX: J06.9 Acute upper respiratory infection, unspecified (principal)
CPT/HCPCS: 87633; 99212

== ENCOUNTER 2025-08-16 14:30 | Outpatient (AMB) | payer OTHER, SELFPAY ==
[2025-08-16 14:33] VITALS: BP 122/80; PULSE 92; TEMP 36.8; O2SAT 99; BMI 37.1
--- NOTE | 2025-08-16 14:33 | MHC.OFFWIV ---
Intake Vital Signs 08/16/25 14:33 Height 5 ft 6 in Weight 230 lb BMI 37.1 BP 122/80 Blood Pressure Location Lt brachial Position Sitting Pulse 92 Pulse Source Pulse Oximeter Temp 98.2 F Temp Source Oral Pulse Oximetry (%) 99 Oxygen Delivery Method Room Air Intake Visit Reasons: EP-ears clog, scratchy throat, body acke Patient Tobacco Use Status: Never used Tobacco Allergies Seasonal Allergies Allergy (Mild, Verified 08/16/25 14:36) Unknown Do you need a note to return to daycare/school/sports/work: Yes HPI HPI Comments History of Present Illness Details This is a 45-year-old female with a past medical history of anxiety, hypothyroidism and seasonal allergies presenting for evaluation of a sore throat and body aches that she has had since Tuesday. Patient states that she has chills in the evening, feels that her ears are clogged bilateral with a scratchy throat. She denies having any fevers, headache, cough, shortness for breath or difficulty swallowing. She does however report several sick contacts at work with similar symptoms. [facility] Medical History (Updated 08/16/25 @ 15:39 by Tanya Posadas PA-C) Acute upper respiratory infection BMI 36.0-36.9,adult Obesity Anemia Sleep apnea Port-A-Cath in place Hemorrhoids with complication COVID-19 LAXMI (acute kidney injury) Diabetes mellitus NAVNEET (generalized anxiety disorder) Moderate recurrent major depression Blurry vision Essential hypertension Allergic rhinitis Hypothyroid Mixed hyperlipidemia GERD (gastroesophageal reflux disease) Surgical History History of hemorrhoidectomy (~08/24/22) Hx of colonoscopy History of esophagogastroduodenoscopy (EGD) History of surgery History of eye surgery History of removal of both ovaries History of hysterectomy History of cholecystectomy History of tonsillectomy History of tubal ligation History of appendectomy Family History Father Diabetes Hypertension Glaucoma Stroke Anxiety Mother Diabetes Hypertension Breast cancer History of mastectomy Depression Family/Other FH: mental illness Social History Household Members Other:: [id number] w/special needs Housing: House Are you a primary rn progressive care to a significant other at home: No Do you presently have visiting nurse or other home services: No Alcohol intake: current Alcohol intake frequency: holidays/special occasions only Comment: medicated with po tylenol and oxycodone Patient Tobacco Use Status: Never used Tobacco e-Cigarette/Vaping Use: Never Used Second Hand Smoke Exposure: No service: No Current occupational status: employed Current occupational exposures/hazards: No Cognitive needs: No Hearing needs: No Vision needs: Yes Review of Systems Const All systems reviewed & are unremarkable except as noted in HPI and below Reports body aches, Reports chills, Reports fatigue, Denies fever(s), Denies headache(s) and Denies weakness Eyes Reports as per HPI ENT Reports no additional complaints, Reports otalgia ( clogged ), Denies headache(s), Denies nasal discharge, Denies sinus pain and Reports sore throat Card Denies chest pain Resp Denies chest congestion, Denies cough, Denies stridor and Denies wheezing GI Reports no additional complaints Reports no additional complaints Musc Reports no additional complaints and Reports myalgias Skin/Breast Reports system reviewed and no additional complaints, except as documented Neuro Reports no additional complaints, Denies headache(s) and Denies weakness Psych Reports no additional complaints Endo Reports no additional complaints and Reports fatigue Aller/Immun Denies wheezing Physical Exam Vital Signs: Last Vital Signs Temp 98.2 F 08/16/25 14:33 Pulse 92 08/16/25 14:33 BP 122/80 08/16/25 14:33 Pulse Ox 99 08/16/25 14:33 Oxygen Delivery Method Room Air 08/16/25 14:33 BMI result Body Mass Index 37.1 Const General: cooperative, comfortable, no acute distress, well developed, alert, awake and Physically active; No acute distress, ill appearing or lethargic Nutritional Appearance: overweight Orientation/consciousness: No lethargic Limitations: no limitations HEENT Head: Yes normal to inspection and Yes normocephalic Ears: hearing grossly normal bilaterally, external ears normal and EAC's normal General nose exam: Normal external nose present Face and sinus: Yes normal facial exam and Yes sinuses nontender Mouth: Normal oral and palatal mucosa present, moist mucous membranes and breath no malodorous Throat: Yes posterior oropharynx normal (There is no edema, erythema or exudates of the posterior oropharynx) and Yes postnasal drainage Eyes General: appearance normal, both eyes and all related structures Neck Lymphatic: no lymphadenopathy noted Resp Effort & Inspection: normal respiratory effort, no audible wheezes and no cough Auscultation: clear to auscultation bilaterally Cardio Rate: regular rate Rhythm: regular rhythm Skin General skin exam: no rashes or lesions noted Psych Appearance: grossly normal Mental Status: mental status grossly normal Insight: Good insight present (Psych) Judgement: Good judgement present (Psych) Assessment & Plan Assessment & Plan (1) Acute upper respiratory infection: Comment: Patient is afebrile and in no acute distress. There is no evidence of a bacterial otitis media or pharyngitis. Respiratory panel will be obtained given her history of sick contacts at work. Code(s): J06.9 - Acute upper respiratory infection, unspecified Plan: Tylenol or ibuprofen as needed, increase clear fluids daily and rest as tolerated through the weekend. Work note will be provided. Orders: Orders Resp Pathogen Panel - [facility] Today J06.9 - Acute upper respiratory infection, unspecified Coding Level of Care Code Est Pt Level 3 (67951) Diagnoses Acute upper respiratory infection J06.9 Time Spent (min) 20
--- OUTSIDE RECORDS SUMMARY | 2025-08-16 14:33 | XMS_ITS | Encounter Summary ---
Author Organization [facility] Address [address] [place] [address] Care Team Providers Care Traveling Phlebotomist Name Role Phone System, Provider Not In Primary Care Provider Un available Alesia James MD Primary Care Provider [phone] Encounter Details Date Type Department Care Team (Latest Contact Info) Description 10/15/2020 Lab Requisition [facility] COVID [address] Through [address] [place] [address] [address] [place] [address] Ranjit Weiner PA-C [address] [place] [address] Encounter for laboratory testing for COVID-19 virus [...] in this encounter Results * COVID-19 RT-PCR ([facility]) (10/15/2020 2:37 PM EST) COVID-19 RT-PCR SARS-COV-2 NOT DETECTED Not Detected 10/16/2020 12:14 PM EST [facility] Comment: ADDITIONAL INFORMATION The FRED COVID-19 RT-PCR Assay is Real-Time Reverse Vp Ancillary Polymerase Chain Reaction (air force senior officer-PCR) for the in vitro qualitative detection of three SARS-Cov-2 target sequences unique to the coronavirus disease 2019 (COVID-19). This is an Emergency Use Authorization (EUA) in vitro diagnostic (IVD) test that has been modified to include the HotDesk automated liquid handler. Its analytical performance characteristics have been determined by the chief meteorologist and verified by [facility] in a manner consistent with CLIA [...] at the following links: For Healthcare Providers: https://www.fda.gov/media/306274/download For Patients: https://www.fda.gov/media/421444/download TEST LIMITATIONS Positive results are indicative of [...] sample is recommended. The performance of the JaschaPath COVID-19 Combo Kit was established using nasopharyngeal swab, nasopharyngeal aspirate, and bronchoalveolar lavage (BAL) specimens. The limit of detection for the assay was determined to be 0.75copies/uL in the specimens of nasopharyngeal swab. Other specimen types may be need for further validation before testing on this system. For further details refer to the YolaPath COVID-19 Combo Kit EUA submission (https://www.Sidecar.gov/media/580262/download). ----- Test performed by [facility], [address] [place] [address] CLIA# [id number] [id number] Guillaume Rodgers M.D., Ph.D., [facility] [place] Clinical Creative Arts Therapist Microbiology Nasopharyngeal swab / Unknown 10/15/2020 2:37 PM EST 10/15/2020 2:37 PM EST Narrative [facility] - 10/16/2020 12:14 PM EST Performed at [facility], [address] [place] [address], [place] Lic 0695, CLIA [id number] Ranjit Weiner PA-C MICROBIOLOGY - GENERAL OR DERABLES Final Result [address] [address] documented in this encounter Visit Diagnoses Diagnosis Encounter for laboratory testing for COVID-19 virus documented in this encounter Care Teams Traveling Phlebotomist Relationship Specialty Start Date End Date System, Provider Not In PCP - General 10/22/20 Alesia James MD [address] [place] [address] PCP - General 10/21/20 documented as of this encounter
--- OUTSIDE RECORDS SUMMARY | 2025-08-16 14:33 | XMS_ITS | Clinical Summary ---
Author Organization [facility] Address [address] [place] [address] Care Team Providers Care Warehouse Driver Name Role Phone System, Provider Not [...] 78 10/22/2020 11:35 AM EST Temperature 36.4 C (97.5 F) 10/22/2020 8:02 AM EST Respiratory Rate 20 10/22/2020 11:35 AM EST [...] (Ages 21-65) 2000 Colonoscopy 2024 Influenza Vaccine 06/14/2025 COVID-19 Vaccine (1 - 2023-2 5 season) 2025 Pneumococcal Vaccine: Pediat sahra (0-5 Years) and At-Risk Patients (6 to 49 Years) Aged Out No longer eligible b ased on patient's age to complete this topic Medical Devices Implanted Type Area Gas Pipe Layer Device Identifier Shelf Expiration Date Model / Serial / Lot [id number] Port Implantable Infusion Vaccess Ct 6fr Power Injectable - [id number] Implanted:Qty: 1 on 10/22/2020 by Bandar Miller MD at [facility] Access Port [employer] - [id number] 03/13/2022 [id number] / [id number] / [id number] Insurance [employer] Care Teams Warehouse Driver Relationship Specialty Start Date End Date System, Provider Not In PCP - General 10/22/20
--- OUTSIDE RECORDS SUMMARY | 2025-08-16 14:33 | XMS_ITS | Encounter Summary ---
Author Organization [facility] Address [address] [place] [address] Phone Care Team Providers Care Death Claim Clerk Name Role Phone Alesia James MD Primary Care Provider [phone] Reason for Visit * Reason Comments Med Refill Encounter Details Date Type Department Care Team (Late st Contact Info) Description 05/21/2024 Refill [facility] [address] [place] [address] Eleno Knowles MD [address] [facility] [address] [place] [address] Social History Tobacco Use Types [...] on filedocumented in this encounter Care Teams Death Claim Clerk Relationship Specialty Start Date End Date Alesia James MD [address] [place], [place] PCP - General Internal Medicine 07/01/21 documented as of this encounter
--- OUTSIDE RECORDS SUMMARY | 2025-08-16 14:33 | XMS_ITS | Clinical Summary ---
Author Organization [facility] Address [address] [place] [address] [place] [phone] Phone Care Team Providers Care Food Mobile Driver Name Role Phone Alesia James MD Primary Care Provid er Allergies No known active allergies Medications FREESTYLE LITE METER meter kit as directed. 1 Active escitalopram oxalate (LEXAPRO) 10 MG tablet Take 10 mg by mouth daily. 1 Active fenofibrate (LOFIBRA) 54 MG tablet 1 Active hydroCHLOROthi azide (HYDRODIURIL) 25 MG tablet 1 Active levothyroxine (SYNTHROID, LEVOTHROID) 175 MCG tablet Take by mouth every morning. 1 Active omeprazole (PRILOSEC) 20 MG capsule Take 20 mg by mouth daily. 1 Active insulin pen needles, disposable, 31 gauge x 01/27 NdleIndication s:Type 2 diabetes mellitus with diabetic polyneuropathy , without long-term current use of insulin 1 each by Miscellaneous route every morning. 100 each 3 2 Active Additional Information Patient not taking.Reported on 04/28/2023 FREESTYLE 28 gauge lancetsIndicat ions:Type 2 diabetes mellitus with diabetic polyneuropathy , without long-term current use of insulin USE 1 LANCET ONCE A DAY 100 each 3 2 Active Additional Information Patient not taking.Reported on 04/28/2023 FREESTYLE LITE Strp stripsIndicati ons:Type 2 diabetes mellitus with diabetic polyneuropathy , without long-term current use of insulin USE 1 TEST STRIP ONCE A DAY 100 strip 3 2 Active Additional Information Patient not taking.Reported on 04/28/2023 metFORMIN (GLUCOPHAGE) 500 MG tabletIndicati ons:Type 2 diabetes mellitus with diabetic polyneuropathy , without long-term current use of insulin Take 2 tablets (1,000 mg total) by mouth 2 (two) times a day. 360 tablet 1 2 Active Additional Information Patient not taking.Reported on 04/28/2023 multivitamin with minerals (HAIR,SKIN AND NAILS ORAL) Take by mouth. Act keith multivit,calc, mins/folic acid (MULTIVIT,CALC [id number] ACD ORAL) Take by mouth. Activ e atorvastatin (LIPITOR) 20 MG tabletIndicati ons:Hyperlipid emia LDL goal <100 Take 1 tablet (20 mg total) by mouth daily. 90 tablet 1 3 Active Active Problems Problem Noted Date Diagnosed Date Type 2 diabetes mellitus wit h diabetic polyneuropathy, without long-term current use of insulin 08/19/2021 Assessment & Plan (04/28/2023 5:20 PM EDT): She stopped all diabetic medications maybe 2 months ago but repeat hemoglobin A1c is 5.1%. I will repeat the hemoglobin A1c again in 3 months and see if she is still doing well. But if she is doing this well she does not need to take any medications just diet and exercise. However, her BMI is 33 in the obese category and she could lose weight with the use of Ozempic. However she has had pancreatitis when she was 18 years ago so GLP-1 agonists cannot be started on her. Assessment & Plan (11/10/2022 10:30 AM EST): Controlled hemoglobin A1c 5.1% she does not complain of hypoglycemia. She states that she has not taken Tresiba in the last 4 weeks. But if she took Tresiba 2 months prior the hemoglobin A1c is a function of the last 3 months. I will stop the Tresiba and have a repeat hemoglobin A1c in 3 months. If the hemoglobin A1c goes above the reference range I am considering adding oral antidiabetic medication such as an SGLT2 inhibitor that has benefits with weight loss, cardiac function and renal function. Alternatively we can use a GLP-1 agonist which has greater weight loss and cardiovascular benefits but no effect on the kidneys. She will return for follow-up in 3 months. Assessment & Plan (01/25/2022 3:34 PM EDT): Controlled. Hemoglobin A1c is 5.8% on Metformin and Tresiba 30 units daily. She is not having hypoglycemia we will continue current medications. She will follow in 6 months time repeat hemoglobin A1c prior to the follow-up visit. Assessment & Plan (10/26/2021 4:09 PM EST): Based on glycemic levels she is doing well with Tresiba 30 units and Metformin extended release 500 mg 2 tablets twice a day. She states that she has tolerated taking these pills. Because they extended release she can take all 4 pills at the same time if that helps. She can just get it over with. Or if she prefers to take it separately throughout the day she can do this. But I will warn her that sometimes she will forget to take the medication if she does it this way.SHe'll return for follow up in 3 months. Assessment & Plan (08/19/2021 3:56 PM EDT): Uncontrolled. Hemoglobin A1c is 11.1% I will [...] her Tresiba U[address] [id number] expiration 09/2022 Hyperlipidemia LDL goal <100 08/19/2021 Assessment & Plan (04/28/2023 5:05 PM EDT): Uncontrolled. LDL 106 mg/dL she needs to start taking atorvastatin 20 mg again. Repeat lipid panel prior to the follow-up visit in 3 months. Assessment & Plan (11/10/2022 10:29 AM EST): LDL was good at 70 mg/dL so her lipid panel was controlled on atorvastatin 20 mg no need to change the medication but she does need to repeat her lipid panel which is done yearly. Assessment & Plan (01/25/2022 3:33 PM EDT): Controlled. LDL is 70 mg/dL on atorvastatin 20 mg. No changes required. Assessment & Plan (10/26/2021 4:10 PM EST): I do not have a lipid panel. I requested lipid panel for the follow-up visit. In the meantime she should continue fenofibrate and atorvastatin. Assessment & Plan (08/19/2021 3:50 PM EDT): Controlled. LDL 98 mg/dL with atorvastatin 20 mg no changes. She does have elevated triglycerides and low HDL of 39 mg/dL. Family History Medical History Relation Comments Diabetes Father Hypertension Father Cancer Mother Diabetes Mother Hyperlipidemia Mother Hypertension Mother Relation Status Comments Father Alive Mother Alive Social History Tobacco Use Types Packs/Day Years Used Date Smoking Tobacco: Never Smokeless Tobacco: Never Alcohol Use Standard Drinks/Week Comments Not Currently 0 (1 standard drink = 0.6 oz pur e alcohol) Education Answer Date Recorded Are you interested in more education? Not on dar e 03/12/2023 Are you concerned about learning? Not on file 03/12/2023 No 03/12/2023 No 03/12/2023 Digital Access Answer Date Recorded No 04/09/2023 No 04/09/2023 No 04/09/2023 Reliable internet access at home? Not on file 04/09/2023 Device with a working camera? Not on file Comments Unknown Sex and Gender Information Value Date Recorded Sex Assigned at Not on file Legal Sex Female 2:36 PM EDT Gender Identity Not on file Sexual Orientation Not on file Last Filed Vital Signs Vital Sign Reading Time Taken Comments Blood Pressure 120/74 04/28/2023 4:32 PM EDT Pulse 77 04/28/2023 4:32 PM EDT Temperature - - Respiratory Rate 98 08/19/2021 3:11 PM EDT Oxygen Saturation 98% 04/28/2023 4:32 PM EDT Inhaled Oxygen Concentration - - Weight 94.8 kg (209 lb) 04/28/2023 4:32 PM EDT Height 169.5 cm (5' 6.73 ) 04/28/2023 4:32 PM ED T Body Mass Index 33 04/28/2023 4:32 PM EDT Plan of Treatment Health Maintenance Due Date Last Done Comments TSH LEVEL 1979 DEPRESSION SCREENING 1991 HEPATITIS C SCREENING 1997 HIV ONE-TIME SCREENING (18-65 YEARS) 1997 PNEUMOCOCCAL VACCINES (0-49 years) (1 of 2 - PCV) 1998 PAP SMEAR 2000 MAMMOGRAM 2019 DIABETIC EYE EXAM 08/20/2021 BLOOD PRESSURE 10/28/2023 04/28/2023 HEMOGLOBIN A1C 10/28/2023 04/28/2023, 03/2 01/2023, 11/10/2022, Additional history exists CREATININE LEVEL 02/04/2024 02/03/2023 POTASSIUM LEVEL 02/04/2024 02/03/2023 URINE MICROALBUMIN/CREATININE RATIO 02/04/2024 02/03/2023, 01/22/2022, 08/18/2021 COLOGUARD 2024 COLONOSCOPY 2024 COLORECTAL CANCER SCREENING 2024 FIT TEST 2024 FOBT 2024 SIGMOIDOSCOPY 2024 VIRTUAL COLONOSCOPY 2024 INFLUENZA VACCINE (#1) 2025 07/26/2020, 2019 COVID-19 VACCINE (2024- season) 2025 03/07/2021, 02/07/2021 Adult Td,Tdap Booster 01/03/2030 01/03/2020 SMOKING STATUS SCREENING (Once After 26 Yrs) Completed 08/19/2021 HEPATITIS A VACCINES Aged Out No long er eligible based on patient's age to complete this topic HIB VACCINES Aged Out No longer eligi ble based on patient's age to complete this topic MENINGOCOCCAL VACCINES (ACWY) Aged Out No longer eligible based on patient's age to complete this topic MENINGOCOCCAL VACCINES (B) Aged Out N o longer eligible based on patient's age to complete this topic Medical Devices Not on file Procedures Procedure Name Priority Date/Time Associated Diagnosis Comments POCT HEMOGLOBIN A1C Routine 04/28/2023 5 :23 PM EDT Type 2 diabetes mellitus with diabetic polyneuropathy, without long-term current use of insulin MICROALBUMIN/CREATININ E RATIO, RANDOM URINE Routine 02/03/2023 8:29 AM EDT Type 2 diabetes mellitus with diabetic polyneuropathy, without long-term current use of insulin COMPREHENSIVE METABOLIC PANEL Routine 02/03/2023 8:22 AM EDT Type 2 diabetes mellitus with diabetic polyneuropathy, without long-term current use of insulin from Last 3 Months or Most Recently Relevant to Health Maintenance Results * POCT Hemoglobin A1c (04/28/2023 5:23 PM EDT) Hemoglobin A1c 5.1 4.2 - 5.8 % Other 04/28/2023 5:23 PM EDT Arian Pradhan DO POINT OF CARE TEST ORDERABLES Fi nal Result * Microalbumin/creatinine ratio, random urine (02/03/2023 8:29 AM EDT) URINE MICROALBUMIN <1.2 0 - 2.3 mg/dL [facility] URINE CREATININE 126 mg/dL [facility] MICROALB/CRE RATIO NOT CALCULATED 0 - 20 mg/g Cre [facility] Comment:due to Microalbumin <1.2 Urine (Urine) 02/03/2023 8:2 9 AM EDT 02/03/2023 8:31 AM EDT us Arian Pradhan DO URINE ORDERABLES Final Result [facility] [address] [place] [address] * (ABNORMAL) Comprehensive metabolic panel (02/03/2023 8:22 AM EDT) SODIUM 140 133 - 146 mmol/L [facility] POTASSIUM 4.2 3.3 - 5.1 mmol/L [facility] CHLORIDE 107 96 - 108 mmol/L [facility] CO2 26 21 - 35 mmol/L [facility] BUN 18 6 - 19 mg/dL [facility] CREATININE 0.70 0.5 - 1.5 mg/dL [facility] GLUCOSE 104(H) 70 - 99 mg/dL [facility] ALBUMIN 3.7(L) 3.9 - 4.8 g/dL [facility] TOTAL PROTEIN 6.5 6.5 - 8.0 g/dL [facility] CALCIUM 8.7 8.4 - 10.3 mg/dL [facility] ALKALINE PHOSPHATASE 61 39 - 117 U/L [facility] TOTAL BILIRUBIN 0.4 0.0 - 1.2 mg/dL [facility] AST 26 0 - 37 U/L [facility] ALT 16 0 - 40 U/L [facility] GLOBULIN 2.8 1 - 4.8 g/dL [facility] EGFR 110 >59 mL/min/1.7 3m2 [facility] Comment:Estimated glomerular filtration rate calculated using the CKD-EPI refit equation. ANION GAP 11 10 - 20 mmol/L [facility] Blood 02/03/2023 8:22 AM EDT 02/03/2023 8:29 AM EDT Arian Pradhan DO LAB BLOOD ORDERABLES Final Resul t [facility] [address] [place] [address] from Last 3 Months or Most Recently Relevant to Health [place] [address] [facility] [address] [facility] [address] [place] [id number] [facility] [address] [facility] [place] [address] [facility] [address] [facility] [place] [address] [facility] [place] [address] [facility] Care Teams Food Mobile Driver Relationship Specialty Start Date End Date Alesia James MD [address] [place] [address] PCP - General Internal Medicine 07/09/21 Additional Source Comments The information contained in this document represents components of the legal health record. It is not the complete legal health record.[facility]
--- OUTSIDE RECORDS SUMMARY | 2025-08-16 14:33 | XMS_ITS | Clinical Summary ---
Author Organization [facility] Address [address] [place] [address] [address] [place] [address] Phone Care Team Providers Care Retail Merchandising Manager Name Role Phone Alesia James MD Primary Care Provider [phone] Allergies No known active allergies Medications omeprazole [...] her Tresiba U[address] [id number] expiration 09/2022 Localized edema 08/18/2021 Acute tubular [...] Visual Foot Exam 07/15/2021 Influenza Vaccine (#1) 2025 [place] [address] [place] [address] [place] [address] Care Teams Retail Merchandising Manager Relationship Specialty Start Date End Date Alesia James MD [address] [place], [place] PCP - General Internal Medicine 07/01/21
== END 2025-08-16 15:45 | disposition home or self-care (01) ==
PROVIDERS: PCP Internal Medicine; Visit Provider Physician Assistant
DX: J06.9 Acute upper respiratory infection, unspecified (principal)

== ENCOUNTER 2025-11-11 12:31 | Outpatient (AMB) | payer OTHER, SELFPAY ==
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
[2025-11-11 12:47] VITALS: BP 130/92; PULSE 83; RESP 18; TEMP 36.4; O2SAT 98; BMI 38.0
--- OUTSIDE RECORDS SUMMARY | 2025-11-11 14:27 | XMS_ITS | Clinical Summary ---
Author Organization [facility] Address [address] [place] [address] Care Team Providers Care Neonatal Intensive Care Nurse Name Role Phone System, Provider Not In [...] Influenza Vaccine 06/14/2025 COVID-19 Vaccine (1 - 2024-2 6 season) 2025 Pneumococcal Vaccine: Pediat sahra (0-5 Years) and At-Risk Patients (6 to 49 Years) Aged Out No longer eligible b ased on patient's age to complete this topic Medical Devices Implanted Type Area Tiler'S Assistant Device Identifier Shelf Expiration Date Model / Serial / Lot [id number] Port Implantable Infusion Vaccess Ct 6fr Power Injectable - [id number] Implanted:Qty: 1 on 10/22/2020 by Bandar Miller MD at [facility] Access Port [employer] - [id number] 03/13/2022 [id number] / [id number] / [id number] Insurance [employer] Care Teams Neonatal Intensive Care Nurse Relationship Specialty Start Date End Date System, Provider Not In PCP - General 10/22/20
--- OUTSIDE RECORDS SUMMARY | 2025-11-11 14:27 | XMS_ITS | Encounter Summary ---
Author Organization [facility] Address [address] [place] [address] Phone Care Team Providers Care Electrical Automation Engineer Name Role Phone Alesia James MD Primary Care Provider [phone] Reason for Visit * Reason Comments Med Refill Encounter Details Date Type Department Care Team (Late st Contact Info) Description 05/21/2024 Refill [facility] [address] [place] [address] Eleno Knowles MD [address] [facility] [address] [place] [address] Social History Tobacco Use Types [...] on filedocumented in this encounter Care Teams Electrical Automation Engineer Relationship Specialty Start Date End Date Alesia James MD [address] [place], [place] PCP - General Internal Medicine 07/01/21 documented as of this encounter
--- OUTSIDE RECORDS SUMMARY | 2025-11-11 14:27 | XMS_ITS | Clinical Summary ---
Author Organization [facility] Address [address] [place] [address] [place] [id number] Phone Care Team Providers Care Public Interviewer Name Role Phone Alesia James MD Primary [...] mouth. Act keith multivit,calc, mins/folic acid (MULTIVIT,CALC TBE-TXO-RSDRI ACD ORAL) Take by mouth. Activ e [...] [place] T[place] U[address] [id number] expiration 09/2022 Hyperlipidemia LDL goal <100 08/19/2021 [...] current use of insulin COMPREHENSIVE METABOLIC PANEL (CMP) Routine 02/03/2023 8:22 AM EDT Type 2 diabetes mellitus with diabetic polyneuropathy, without long-term current use of insulin from Last 3 Months or Most Recently Relevant to Health Maintenance Results * POCT Hemoglobin A1c (04/28/2023 5:23 PM EDT) Hemoglobin A1c 5.1 4.2 - 5.8 % Other 04/28/2023 5:23 PM EDT us Arian Pradhan DO LAB POCT ENTER/EDIT ORDERABLES F inal Result * Microalbumin/creatinine ratio, random urine (02/03/2023 8:29 AM EDT) URINE MICROALBUMIN <1.2 0 - 2.3 mg/dL [facility] URINE CREATININE 126 mg/dL [facility] MICROALB/CRE RATIO NOT CALCULATED 0 - 20 mg/g Cre [facility] Comment:due to Microalbumin <1.2 Urine (Urine) 02/03/2023 8:2 9 AM EDT 02/03/2023 8:31 AM EDT us Arian Lorne DO LAB URINE ORDERABLES Final Resul t Performing Organization Address City/[facility]/ZIP Co de Phone Number [address] [address] * (ABNORMAL) Comprehensive metabolic panel (02/03/2023 8:22 AM EDT) SODIUM 140 133 - 146 mmol/L [facility] POTASSIUM 4.2 3.3 - 5.1 mmol/L [facility] CHLORIDE 107 96 - 108 mmol/L [facility] CO2 26 21 - 35 mmol/L [facility] BUN 18 6 - 19 mg/dL [facility] CREATININE 0.70 0.5 - 1.5 mg/dL [facility] GLUCOSE 104(H) 70 - 99 mg/dL [facility] ALBUMIN 3.7(L) 3.9 - 4.8 g/dL [facility] TOTAL PROTEIN 6.5 6.5 - 8.0 g/dL [facility] CALCIUM 8.7 8.4 - 10.3 mg/dL [facility] ALKALINE PHOSPHATASE 61 39 - 117 U/L [facility] TOTAL BILIRUBIN 0.4 0.0 - 1.2 mg/dL [facility] AST 26 0 - 37 U/L [facility] ALT 16 0 - 40 U/L [facility] GLOBULIN 2.8 1 - 4.8 g/dL [facility] EGFR 110 >59 mL/min/1.7 3m2 [facility] Comment:Estimated glomerular filtration rate calculated using the CKD-EPI refit equation. ANION GAP 11 10 - 20 mmol/L [facility] Blood 02/03/2023 8:22 AM EDT 02/03/2023 8:29 AM EDT Arian Pradhan DO LAB BLOOD BKR ORDERABLES Final R esult Performing Organization Address City/[facility]/ZIP Co de Phone Number [address] [address] from Last 3 Months or Most Recently Relevant to Health [place] [address] [facility] [place] [address] [facility] [address] [facility] [place] [address] [facility] [place] [address] [facility] [place] [address] [facility] [place] [address] [facility] [place] [address] [facility] Care Teams Public Interviewer Relationship Specialty Start Date End Date Alesia James MD [address] [place] [address] PCP - General Internal Medicine 07/09/21 Additional Source Comments The information contained in this document represents components of the legal health record. It is not the complete legal health record.[facility]
--- OUTSIDE RECORDS SUMMARY | 2025-11-11 14:27 | XMS_ITS | Clinical Summary ---
Author Organization [facility] Address [address] [place] [address] [address] [place] [address] Phone Care Team Providers Care Heading Pinner Name Role Phone Alesia James MD Primary Care Provider [phone] Allergies No known active allergies Medications omeprazole [...] [place] T[place] [address] [id number] expiration 09/2022 Localized edema 08/18/2021 Acute tubular [...] Exam 07/15/2021 Influenza Vaccine (#1) [address] [place] [address] Care Teams Heading Pinner Relationship Specialty Start Date End Date Alesia James MD [address] [place], [place] PCP - General Internal Medicine 07/01/21
== END 2025-11-11 13:20 | disposition home or self-care (01) ==
LOC: HO.HMCH 12:32
PROVIDERS: PCP Internal Medicine; Visit Provider Internal Medicine
DX: Z00.00 Encounter for general adult medical examination without abnormal findings (principal); F33.1 Major depressive disorder, recurrent, moderate

== ENCOUNTER → 2025-11-11 12:31 | Outpatient (BNVA) | payer OTHER, SELFPAY | PROVIDERS: PCP Internal Medicine; Visit Provider Internal Medicine | DX: Z00.00 Encounter for general adult medical examination without abnormal findings (principal); F33.1 Major depressive disorder, recurrent, moderate | CPT/HCPCS: 96127; 99396 ==